=== PATIENT | female | born 1965 | race Caucasian/White ===

== ENCOUNTER → 2018-01-31 08:15 | Outpatient (CLI) | payer OTHER, SELFPAY ==
[2018-01-31 10:27] LABS: Absolute Lymphocyte Count 2.31 X10^3/ul (0.83-4.51); Absolute Neutrophil Count 4.4 X10^3/uL (2.0-7.7); Basophil# 0.04 X10^3/uL; Basophil% 0.5 % (0-1); Eosinophil# 0.12 X10^3/uL; Eosinophils% 1.5 % (0-5); Hematocrit 39.4 % (37-47); Hemoglobin 12.9 g/dl (12.0-15.0); Lymphocyte # 2.31 X10^3/ul (4.0); Lymphocyte % 29.5 % (19-41); Mean Corp Hgb Conc 32.7 g/gl (32-36); Mean Corpuscular Hgb 30.6 pg (27.0-32.0); Mean Corpuscular Volume 93.6 fL (81-99); Mean Platelet Vol. 10.6 fl (6.2-12.0); Monocyte# 0.93 X10^3/uL; Monocyte% 11.9 % (0-10); Neutrophil # 4.39 X10^3/uL (2.7-7.7); Neutrophil % 56.2 % (47-70); Platelet Count 410 K/mm3 (150-450); RBC Distribution Width CV 13.5 % (11.6-14.6); RBC Distribution Width SD 45.1 fl (35.1-43.9); Red Blood Count 4.21 M/mm3 (4.2-5.4); White Blood Count 7.8 K/mm3 (4.4-11.0)
[2018-01-31 10:32] LABS: POSITIVE COUNT NO; POSITIVE DIFFERENTIAL NO; POSITIVE MORPHOLOGY NO
[2018-01-31 11:03] LABS: Anion Gap 10 (5-15); BUN 14 mg/dL (7-18); BUN/Creat Ratio 18.3 RATIO (10-20); Calcium,Total 9.5 mg/dL (8.5-10.1); Chloride 100 mmol/L (98-107); Creatinine, Serum 0.76 mg/dL (0.55-1.02); EST Glomerular Filtration Rate 84 mL/min (>60); Est Glom Filt Rate - Afr Amer 102 mL/min (>60); Glucose 94 mg/dL (74-106); Potassium 3.1 mmol/L (3.5-5.1); Sodium Level 139 mmol/L (136-145); Thyroid Stim Hormone (TSH) 1.97 uIU/mL (0.358-3.74)
[2018-02-01 09:43] LABS: Vitamin D,25 Hydroxy 58.9 ng/mL (29.95-100.01)
== END ==
PROVIDERS: Family Provider Family Medicine; PCP Family Medicine; Visit Provider Family Medicine
DX: I10 Essential (primary) hypertension (principal); R53.81 Other malaise; E03.9 Hypothyroidism, unspecified; E55.9 Vitamin D deficiency, unspecified
CPT/HCPCS: 36415; 80048; 82306; 84443; 85025

== ENCOUNTER → 2018-03-19 17:49 | Outpatient (CLI) | payer OTHER, SELFPAY ==
--- NOTE | 2018-03-19 18:15 | MRI_ITS ---
STUDY: MRI LUMBAR SPINE WITHOUT CONTRAST REASON FOR EXAM: Female, 52 years old. Congenital spondylolisthesis. Left hip pain,sciatica. TECHNIQUE: Standardized fat and water weighted pulse sequences were obtained in the sagittal and axial planes. COMPARISON: None FINDINGS: T12-L1: There is minimal disc space narrowing and endplate spondylosis. There is no central canal or foraminal stenosis. Normal lumbar lordosis. There is no substantial scoliosis. Normal conus medullaris that terminates at the L1 L1-2: There is minimal disc space narrowing and endplate spondylosis. There is no central canal or foraminal stenosis. L2-3: There is minimal disc space narrowing and endplate spondylosis. There is no central canal or foraminal stenosis. L3-4: There is minimal disc space narrowing and endplate spondylosis. There is no central canal or foraminal stenosis. L4-5: There is moderate disc space narrowing and endplate spondylosis. There is grade 1 anterolisthesis with disc uncovering. There is spondylolysis. There is no significant central canal or foraminal stenosis. L5-S1: There is mild disc space narrowing and endplate spondylosis. There is a mild disc bulge with small central protrusion without significant central canal or foraminal stenosis. Normal visualized sacral ala. Normal visualized paraspinous soft tissue structures. MRI/Spine Lumbar (Routine) IMPRESSION: L4/L5: Spondylolysis with grade 1 anterolisthesis. Mild multilevel degenerative changes. Electronically Signed: Kirby Rodrigues MD at 13:24 EDT Tel , Service support ,
== END ==
PROVIDERS: Family Provider Family Medicine; PCP Family Medicine; Visit Provider Family Medicine
DX: Q76.2 Congenital spondylolisthesis (principal)
CPT/HCPCS: 72148

== ENCOUNTER → 2018-06-18 12:54 | Outpatient (CLI) | payer OTHER, SELFPAY | PROVIDERS: Family Provider Family Medicine; PCP Family Medicine; Visit Provider Orthopaedic Surgery | DX: M54.5 Low back pain (principal) | CPT/HCPCS: 72110 ==

== ENCOUNTER → 2018-08-22 12:38 | Outpatient (CLI) | payer OTHER, SELFPAY ==
--- NOTE | 2018-08-22 12:44 | MRI_ITS ---
STUDY: MRI RIGHT ANKLE WITHOUT CONTRAST REASON FOR EXAM: Female, 53 years old. Increasing Achilles tendon pain after fall 9 weeks ago. TECHNIQUE: Standardized fat and water weighted pulse sequences were obtained in all 3 orthogonal planes. COMPARISON: X-rays of the foot dated May 18, 2004. FINDINGS: Normal subcutis adipose space. There is mild posterior tibialis tendinosis with tenosynovitis (axial series 3 images 12-16). Normal flexor digitorum longus tendon. Normal flexor hallucis longus tendon. Normal peroneus longus and brevis tendons. Normal tibialis anterior tendon. Normal extensor hallucis longus tendon. Normal extensor digitorum longus tendons. There is thickening and increased signal intensity within the distal Achilles tendon compatible with tendinosis (sagittal series 8 images 10-14). Normal plantar fascia. Normal plantar calcaneal tubercles. Normal intrinsic muscles of the rearfoot. Normal distal tibiofibular syndesmotic ligamentous complex. Normal lateral ligamentous complex. Normal subtalar ligaments and sinus tarsi. There are small varices within the tarsal tunnel (axial series 3 images 13-20). Normal deltoid ligamentous complexes. Normal plantar calcaneonavicular (spring) ligament. Normal tibiotalar articulation. Normal talar dome. Normal subtalar articulations. Normal talonavicular articulation. Normal calcaneocuboid articulation. Normal navicular-cuneiform articulations. MRI/Lower Ext Joint Only (Routine) IMPRESSION: Mild posterior tibialis tendinosis with tenosynovitis. Distal Achilles tendinosis. Small varices within the tarsal tunnel. No other abnormality identified. Electronically Signed: Johnathan David MD at 14:21 EST , Service support ,
== END ==
PROVIDERS: Family Provider Family Medicine; PCP Family Medicine; Referring Provider Podiatrist; Visit Provider Podiatrist
DX: M76.61 Achilles tendinitis, right leg (principal); M77.31 Calcaneal spur, right foot; M79.671 Pain in right foot
CPT/HCPCS: 73721

== ENCOUNTER 2018-10-24 12:30 | Outpatient (RCR) | payer OTHER, SELFPAY ==
--- NOTE | 2018-09-16 15:00 | HP.PTEVAL_ITS ---
Patient's Visit Information SHILOH ORONA is a 53 year old F referred to Physical Therapy by Ezequiel Forrest DPM with a diagnosis of Achilles. Date of Evaluation: 09/16/18 Physical Therapist: Carmen Loza - Visit Plan Frequency: 2x /Week Duration: 4 Weeks Plan: Focus on stretching of right LE- modality (ultrasound) and manual to increase blood flow - Subjective Subjective: Took a fall this summer in the garage and slipped on a wet floor and hurt a lot of this but the ankle developed a knot on the back of the achilles and soreness. Went on vacation and walked a lot and it bothered her a lot. Went back to school on her hand floor and its just getting worse. Right foot/ankle and also feels like plantarfascitis is back. Feels it has plateaued. Saw Dr. Forrets and put her in the boot for a long time but didn't feel like it got better or worse and then sent her to see PT. Has had x-rays which didn't show anything broken- concerned about swelling around achilles- didnt want her to rupture so that was part of the reason she wore the boot. Had an MRI which showed no tears just tendonitis. Pain is currently located along the back of the ankle on the achilles and the bottom of the foot. Does have pain along the back of the back of the calf to the knee. Worst: 6/10 Agg: being on her feet to long, stairs. Best: 2/10 Eases: get off her feet. Describes the pain as achy. Sometimes has N/T in the feet but its from her back. Needs to do PT on her back when this is done. Sleep: wakes her up when she gets cramping in the calf. Has had surgery on the right LE years ago for her veins- then had a second surgery on this leg. 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 Only buys shoes that are good ([employer], [employer], etc). PMHx:HTN,thyroid Meds: HTN med unsure of the name, Levothyroxin, Vit D, water pill - Objective Posture: FH, RS- can correct with verbal cueing. Gait: slightly antalgic- decreased stance on the right LE with poor heel/toe pattern. Stairs: asc- 2 HR recip with decreased push off on the right- desc-non recip with 2 HR and a sideways pattern. SLS: 20 sec with good stablization. HR/TR: able with pain on the right. Palpation: tender along outer rim of the heel and along the achilles. Observation: veins close to skin in ankle- bump on back of achilles close to insertion. ROM: DF: neutral, PF: 50 degrees, Inv: 30 degrees, Ever:15 degrees. Strength: 4+/5 throughout. Flex: Gastroc: severe, Solues: moderate - Goals Goal 1:: Patient will be I with HEP and progression Goal Time Frame: 4-6 Weeks Goal 2:: Patient will ambulate >300 feet with a normalized gait pattern Goal Time Frame: 4-6 Weeks Goal 3:: Patient will demo 5 degrees of DF Goal Time Frame: 4-6 Weeks Goal 4:: Patient will report 0/10 pain for 1 week Goal Time Frame: 4-6 Weeks - Rehabilitation Potential Physical Therapy Diagnosis: Patient presents with hypomobility- she has decreased ROM, strength and increased inflammation leading to increased pain with ADL's and gait. Rehabilitation Potential: Good - Anticipated Interventions Patient/Client Instruction: Educate patient on: Benefits of Fitness Program Therapeutic Exercise to Include: Strength training, Endurance training, Balance training, Agility training, Body mechanics, Postural training, Flexibilty training, Gait and locomotor training, Neuromotor development For the Purpose of:: To improve muscle performance and motor function Manual Therapy Techniques to Include: Soft tissue mobilization TENS: Yes Cryotherapy (ice pack, ice massage): Yes Thermo therapy (hot pack): Yes Ultrasound (thermal/non thermal): Yes For the Purpose of:: To decrease pain, To decrease swelling/inflammation Thank you for the opportunity to evaluate your patient. For Medicare and Medicare HMO plans, please review the plan of care and approve it. It will need to be FAXED BACK to us at [phone] for Medicare purposes. Please let me know if there are questions or concerns regarding this plan of care. Physician Signature: Date:
--- NOTE | 2018-10-17 11:52 | HP.PTREVAL ---
Ezequiel Forrest DPM, It has been my pleasure to treat SHILOH ORONA over the last 7 visits for Achilles. Please see the progress note below for an update on the physical therapy plan of care! Subjective: Patient reports that her foot/ankle is coming along- Still having cramps at night. Certain days are good- when she is on her feet to long it starts hurting. Its less painful when just walking. Feels that its 50% better. Objective/Function: Posture: FH, RS- can correct with verbal cueing-and maintains for half of treatment Gait: improved- no deviation noted. Stairs: asc- 2 HR recip with decreased push off on the right- desc-non recip with 2 HR and a sideways pattern. SLS: 30 sec with good stablization. HR/TR: able no pain. Palpation: slightly tender to achilles. ROM: DF: 8 degrees, PF: 50 degrees, Inv: 30 degrees, Ever:15 degrees. Strength: 4+/5 throughout. Flex: Gastroc: moderate, Solues: moderate Plan Plan: Cont with POC an additional week for progression to HEP Goals Goal 1:: Patient will be I with HEP and progression Goal Time Frame: 4-6 Weeks Goal Progress: Progressing Goal 2:: Patient will ambulate >300 feet with a normalized gait pattern Goal Time Frame: 4-6 Weeks Goal Progress: Progressing Goal 3:: Patient will demo 5 degrees of DF Goal Time Frame: 4-6 Weeks Goal Progress: Goal Met Goal 4:: Patient will report 0/10 pain for 1 week Goal Time Frame: 4-6 Weeks Goal Progress: Progressing Anticipated Interventions Patient/Client Instruction: Educate patient on: Benefits of Fitness Program Therapeutic Exercise to Include: Strength training, Endurance training, Balance training, Agility training, Body mechanics, Postural training, Flexibilty training, Gait and locomotor training, Neuromotor development For the Purpose of:: To improve muscle performance and motor function Manual Therapy Techniques to Include: Soft tissue mobilization TENS: Yes Cryotherapy (ice pack, ice massage): Yes Thermo therapy (hot pack): Yes Ultrasound (thermal/non thermal): Yes For the Purpose of:: To decrease pain, To decrease swelling/inflammation Please do not hesitate to contact me at [phone] by phone or if you have questions or concerns regarding this new plan of care! Sincerely, Carmen Loza, LORRAINET
--- NOTE | 2019-02-21 08:14 | HP.PT.NRP ---
HP - Discharge Summary (1) - Patient Information SHILOH ORONA was seen in my office for initial evaluation on 09/16/18. The following Plan of Care was established for this patient: Initial Frequency: 2x /Week Initial Duration: 4 Weeks - Anticipated Interventions Patient/Client Instruction: Educate patient on: Benefits of Fitness Program Therapeutic Exercise to Include: Strength training, Endurance training, Balance training, Agility training, Body mechanics, Postural training, Flexibilty training, Gait and locomotor training, Neuromotor development For the Purpose of:: To improve muscle performance and motor function Manual Therapy Techniques to Include: Soft tissue mobilization TENS: Yes Cryotherapy (ice pack, ice massage): Yes Thermo therapy (hot pack): Yes Ultrasound (thermal/non thermal): Yes For the Purpose of:: To decrease pain, To decrease swelling/inflammation This patient was last seen in our office . Pertinent comments regarding their Physical therapy will appear below: Patient has not attended physical therapy in over 30 days and is appropriate for discharge. Follow up with MD as appropriate. At this point I will be discontinuing this patient from physical therapy. I would be happy to see this patient again in the future if found appropriate by the physician. Thank you! Carmen Loza DPT
== END 2018-10-24 19:00 | disposition home or self-care (01) ==
LOC: PT 12:30
PROVIDERS: Family Provider Family Medicine; PCP Family Medicine; Referring Provider Podiatrist; Visit Provider Podiatrist
DX: M76.61 Achilles tendinitis, right leg (principal); M25.571 Pain in right ankle and joints of right foot; M72.2 Plantar fascial fibromatosis; M77.31 Calcaneal spur, right foot; M79.671 Pain in right foot; M76.821 Posterior tibial tendinitis, right leg
CPT/HCPCS: 97035; 97110; 97140; 97161; 97164

== ENCOUNTER → 2019-01-07 15:17 | Outpatient (CLI) | payer OTHER, SELFPAY ==
--- NOTE | 2019-01-07 15:19 | US_ITS ---
STUDY: THYROID ULTRASOUND REASON FOR EXAM: Female, 53 years old. Thyromegaly TECHNIQUE: Ultrasound evaluation of the thyroid was performed with real-time and static brower-scale imaging. COMPARISON: August 01, 2016 ultrasound thyroid FINDINGS: RIGHT LOBE: The right lobe of the thyroid gland measures 2.9 x 2.4 x 2.3 cm. There is a heterogeneous echotexture. There are no demonstrated solid, cystic or complex lesions. LEFT LOBE: The left lobe of the thyroid gland measures 5.3 x 2.0 x 1.7 cm. There is a heterogeneous echotexture. There are no demonstrated solid, cystic or complex lesions. ISTHMUS: The isthmus measures 5 mm . The regional lymph nodes are normal. US/Thyroid IMPRESSION: Bilateral thyroid enlargement. Bilateral diffuse heterogeneous echotexture without evidence of definitive focal dominant mass. Findings are quite similar to the prior study. Electronically Signed: Chanda Hope MD at 16:09 EDT Tel , Service support ,
== END ==
PROVIDERS: Family Provider Family Medicine; PCP Family Medicine; Referring Provider Family Medicine; Visit Provider Family Medicine
DX: E04.9 Nontoxic goiter, unspecified (principal)
CPT/HCPCS: 76536

== ENCOUNTER → 2019-01-11 09:34 | Outpatient (CLI) | payer OTHER, SELFPAY ==
[2018-06-18 12:44] VITALS: BMI 34.0
[2019-01-11 10:18] LABS: Absolute Lymphocyte Count 2.18 X10^3/ul (0.83-4.51); Absolute Neutrophil Count 4.3 X10^3/uL (2.0-7.7); Basophil# 0.03 X10^3/uL; Basophil% 0.4 % (0-1); Eosinophil# 0.17 X10^3/uL; Eosinophils% 2.2 % (0-5); Hematocrit 40.5 % (37-47); Lymphocyte # 2.18 X10^3/ul (4.0); Lymphocyte % 28.6 % (19-41); Mean Corp Hgb Conc 32.1 g/gl (32-36); Mean Corpuscular Hgb 29.5 pg (27.0-32.0); Mean Platelet Vol. 10.6 fl (6.2-12.0); Monocyte% 11.8 % (0-10); Neutrophil # 4.32 X10^3/uL (2.7-7.7); Neutrophil % 56.7 % (47-70); Platelet Count 396 K/mm3 (150-450); RBC Distribution Width CV 13.5 % (11.6-14.6); RBC Distribution Width SD 44.5 fl (35.1-43.9); White Blood Count 7.6 K/mm3 (4.4-11.0)
[2019-01-11 10:20] LABS: POSITIVE COUNT NO; POSITIVE DIFFERENTIAL NO; POSITIVE MORPHOLOGY NO
[2019-01-11 10:47] LABS: Anion Gap 2 (5-15); BUN 14 mg/dL (7-18); BUN/Creat Ratio 18.2 RATIO (10-20); Calcium,Total 9.1 mg/dL (8.5-10.1); Chloride 103 mmol/L (98-107); Creatinine, Serum 0.77 mg/dL (0.55-1.02); EST Glomerular Filtration Rate 83 mL/min (>60); Est Glom Filt Rate - Afr Amer 101 mL/min (>60); Glucose 92 mg/dL (74-106); Potassium 3.4 mmol/L (3.5-5.1); Sodium Level 139 mmol/L (136-145); Thyroid Stim Hormone (TSH) 1.92 uIU/mL (0.358-3.74)
== END ==
PROVIDERS: Family Provider Family Medicine; PCP Family Medicine; Referring Provider Family Medicine; Visit Provider Family Medicine
DX: I10 Essential (primary) hypertension (principal); E04.9 Nontoxic goiter, unspecified; R53.81 Other malaise
CPT/HCPCS: 36415; 80048; 84443; 85025

== ENCOUNTER → 2020-07-05 09:12 | Outpatient (CLI) | payer OTHER, SELFPAY ==
[2018-06-18 12:44] VITALS: BMI 34.0
[2020-07-05 10:20] LABS: Erythrocyte Sedimentation Rate 21 mm/hr (0-30)
[2020-07-05 10:23] LABS: Hematocrit 39.4 % (37-47); Hemoglobin 12.7 g/dL (12.0-15.0); Mean Corp Hgb Conc 32.2 g/dL (32-36); Mean Corpuscular Hgb 29.7 pg (27.0-32.0); Mean Corpuscular Volume 92.3 fL (81-99); Mean Platelet Vol. 10.6 fl (6.2-12.0); Platelet Count 424 K/mm3 (150-450); RBC Distribution Width CV 13.9 % (11.6-14.6); RBC Distribution Width SD 46.9 fl (35.1-43.9); Red Blood Count 4.27 M/mm3 (4.2-5.4); White Blood Count 7.8 K/mm3 (4.4-11.0)
[2020-07-05 10:36] LABS: Vitamin D,25 Hydroxy 87.9 ng/mL
[2020-07-05 10:38] LABS: ALB/GLOB Ratio 0.9 RATIO (0.9-2.4); AST(SGOT) 21 U/L (15-37); Alanine Aminotransfer ALT/SGPT 29 U/L (13-56); Albumin, Serum 3.8 g/dL (3.2-5.0); Alkaline Phosphatase 92 U/L (45-117); Anion Gap 3 (5-15); BUN 9 mg/dL (7-18); BUN/Creat Ratio 12.6 RATIO (10-20); Calcium,Total 9.5 mg/dL (8.5-10.1); Chloride 104 mmol/L (98-107); Cholesterol 163 mg/dL (200); Creatinine, Serum 0.72 mg/dL (0.55-1.02); EST Glomerular Filtration Rate 90 mL/min (>60); Est Glom Filt Rate - Afr Amer 109 mL/min (>60); Globulin 4.1 g/dL (2.2-4.2); Glucose 106 mg/dL (74-106); High Density Lipoprotein 63 mg/dL; Protein, Total 7.9 g/dL (6.4-8.2); Sodium Level 140 mmol/L (136-145); T4 Free Direct 1.16 ng/dL (0.76-1.46); Thyroid Stim Hormone (TSH) 3.84 uIU/mL (0.358-3.74); Triglycerides 84 mg/dL; Very Low Density Lipoprotein 17 mg/dL (5-40)
== END ==
PROVIDERS: PCP Family Medicine; Referring Provider Family Medicine; Visit Provider Family Medicine
DX: M25.473 Effusion, unspecified ankle (principal); M25.50 Pain in unspecified joint; I10 Essential (primary) hypertension; E03.9 Hypothyroidism, unspecified; E55.9 Vitamin D deficiency, unspecified
CPT/HCPCS: 36415; 80053; 80061; 82306; 84439; 84443; 85027; 85652

== ENCOUNTER → 2020-07-14 16:59 | Outpatient (CLI) | payer OTHER, SELFPAY ==
[2018-06-18 12:44] VITALS: BMI 34.0
--- NOTE | 2020-07-14 17:02 | RAD_ITS ---
STUDY: X-RAY - PELVIS AND LEFT HIP REASON FOR EXAM: Female, 54 years old. CHRONIC LEFT HIP PAIN, NKI TECHNIQUE: 3 views of the pelvis and hip. COMPARISON: None. FINDINGS: There is a non-specific bowel gas pattern. Normal visualized soft tissue structures. Normal bilateral iliac wings, sacroiliac joints and visualized sacrum. Normal bilateral superior and inferior pubic rami. Normal pubic symphysis. Normal bilateral ischial tuberosities. Normal visualized femoral head. Normal acetabulum. Normal hip joint. RAD/HIP, UNI W/ Pelvis 2-3 Views IMPRESSION: Normal x-ray examination of the pelvis and hip. Electronically Signed: Kevin Clark MD at 0:26 EDT , Service support ,
--- NOTE | 2020-07-14 17:03 | RAD_ITS ---
STUDY: X-RAY - RIGHT KNEE REASON FOR EXAM: Chronic right knee pain, no specific injury. TECHNIQUE: 4 view(s) of the knee. COMPARISON: Radiographs 06/07/2015. FINDINGS: Normal visualized distal femur. Normal visualized proximal tibia and fibula. Normal proximal tibiofibular articulation. Normal medial femorotibial compartment. There is mild joint space narrowing of the lateral femorotibial compartment similar to the prior study. There is moderate severe joint space narrowing of the patellofemoral articulation increased since the prior study. There is a possible intra-articular body adjacent to the lateral tibial spine. 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 Possible intra-articular body. Electronically Signed: Cristofer Swann MD at 7:24 EDT Tel , Service support ,
== END ==
PROVIDERS: PCP Family Medicine; Referring Provider Family Medicine; Visit Provider Family Medicine
DX: M25.561 Pain in right knee (principal); M70.62 Trochanteric bursitis, left hip; Y93.9 Activity, unspecified
CPT/HCPCS: 73502; 73564

== ENCOUNTER 2020-09-02 16:30 | Outpatient (RCR) | payer OTHER, SELFPAY ==
--- NOTE | 2020-08-16 15:34 | HP.PTEVAL_ITS ---
Patient's Visit Information SHILOH ORONA is a 55 year old F referred to Physical Therapy by Dr. Seven Barrios MD with a diagnosis of Right Knee and Left Hip. Date of Evaluation: 08/16/20 Physical Therapist: Carmen Loza DPT - Visit Plan Frequency: 2x /Week Duration: 4 Weeks Plan: Focus on LE and core strength/stabilization- painfree range. HEP IE: Isometric Abdominals, bridge, hip add, hip abd, SLR - Subjective Patient reports that her left hip has been really bad for a long time and its gotten to the point where she can't do certain things and she is tired of it. And the right knee is also an issue. She has seen the back MD who told her the pain is coming from her back. Dr. Barrios thinks she has bursitis. Back in the spring she is doing a lot of walking and it go really bad she was having a hard time walking the next day- inclines and hiking are the worse so she has stopped doing them because they hurt. 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 Eases: sitting Agg: cleaning, standing, walking, hiking. The pain is located in the hip joint and radiates to the knee on the outside- can't pivot because it will catch. No MRI on the hip just an x- ray Worst: 05/31. Sleep: can't sleep on her left side, hard to lay on her back. She is sleeping with a ton of pillows to try to get comfortable. She wants to get back to exercising- walking, hiking and enjoy herself. Tylenol Arthritis takes the edge off- Dr. Barrios prescribed a muscle relaxer and she can't take them. Her right knee is swollen and if she does any work around the house the lateral aspect of the knee gets swollen. Going up/down the stairs is horrible. PMHx/Meds: scanned in chart - Objective Posture: FH, RS- can correct but does not maintain. Gait: slightly antalgic- decreased stance on the left LE with poor heel/toe pattern. Stairs: non recip with 2 HR- pulls with UE significantly. HR/TR: able. SLS: 10 sec then LOB. Sensation: WNL. ROM: WFL in all planes of the lumbar, bilateral hips, knees and ankles- pain at end range IR/ER of left hip and flexion on the right knee. Flex: HS: severe, Gastroc: moderate. Strength: Core: fair minus, Hip: 4-/5 bilateral throughout, Knee: 4+/5 throughout bilateral, ankle: 5/5. Edema: moderate on lateral aspect of the right knee. Special Test: Scour: positive, SHARIF: positive, Dural Signs: positive on the left, Yariel: positive. LLD: negative, Pelvic Alignment: WFL - Goals Goal 1:: Patient will be I with HEP and progression Goal Time Frame: 4-6 Weeks Goal 2:: Patient will asc/desc 8 stairs recip with 1 HR Goal Time Frame: 4-6 Weeks Goal 3:: Patient will maintain proper posture t/o tx session to demo increased core s/s Goal Time Frame: 4-6 Weeks Goal 4:: Patient will report 0/10 pain for 1 week Goal Time Frame: 4-6 Weeks - Rehabilitation Potential Physical Therapy Diagnosis: Patient presents with hypomobility- she has decreased core s/s, LE strength, flex and muscular endurance leading to abnormal gait and increased pain with ADL's. Rehabilitation Potential: Fair - Anticipated Interventions Patient/Client Instruction: Educate patient on: Benefits of Fitness Program Therapeutic Exercise to Include: Strength training, Endurance training, Balance training, Agility training, Body mechanics, Postural training, Flexibilty training, Gait and locomotor training, Neuromotor development, Passive ROM, Active ROM, Dynamic Lumbar Stabilization, Scapular Strength/Stabilization For the Purpose of:: To improve muscle performance and motor function TENS: Yes Thermo therapy (hot pack): Yes Ultrasound (thermal/non thermal): Yes For the Purpose of:: To decrease pain Thank you for the opportunity to evaluate your patient. For Medicare and Medicare HMO plans, please review the plan of care and approve it. It will need to be FAXED BACK to us at [phone] for Medicare purposes. For Medicare only, by signing this I certify the plan of care. Please let me know if there are questions or concerns regarding this plan of care. Physician Signature: Date:
--- NOTE | 2020-09-23 11:29 | HP.PT.NRP ---
SHILOH ORONA was seen in my office for initial evaluation on 08/16/20. The following Plan of Care was established for this patient: Initial Frequency: 2x /Week Initial Duration: 4 Weeks Patient/Client Instruction: Educate patient on: Benefits of Fitness Program Therapeutic Exercise to Include: Strength training, Endurance training, Balance training, Agility training, Body mechanics, Postural training, Flexibilty training, Gait and locomotor training, Neuromotor development, Passive ROM, Active ROM, Dynamic Lumbar Stabilization, Scapular Strength/Stabilization For the Purpose of:: To improve muscle performance and motor function TENS: Yes Thermo therapy (hot pack): Yes Ultrasound (thermal/non thermal): Yes For the Purpose of:: To decrease pain This patient was last seen in our office . Pertinent comments regarding their Physical therapy will appear below: Patient reported being frustrated with her lack of progress in therapy. Physical Therapy referred her back to her PCP for further evaluation and offered aquatic therapy as an option as well. At this point I will be discontinuing this patient from physical therapy. I would be happy to see this patient again in the future if found appropriate by the physician. Thank you! Carmen Loza DPT
== END 2020-09-02 19:00 | disposition home or self-care (01) ==
LOC: PT 16:30
PROVIDERS: PCP Family Medicine; Referring Provider Family Medicine; Visit Provider Family Medicine
DX: M25.561 Pain in right knee (principal)
CPT/HCPCS: 97035; 97110; 97162

== ENCOUNTER → 2020-10-26 15:16 | Outpatient (CLI) | payer OTHER, SELFPAY ==
--- NOTE | 2020-10-26 15:22 | MRI_ITS ---
STUDY: MRI LEFT HIP REASON FOR EXAM: Left hip pain for year, no specific injury. TECHNIQUE: Standardized fat and water weighted pulse sequences were obtained in all 3 orthogonal planes. COMPARISON: Radiographs 07/14/2020. FINDINGS: There is mild left hip arthrosis with mild chondral thinning (proton-density sagittal image 8). Normal acetabulum. Normal labrum. Normal femoral head. Normal femoral neck and intratrochanteric region. Normal gluteus minimus, medius and iliopsoas tendons and distal insertions. There is mild bilateral greater trochanteric bursitis (inversion recovery axial images 24, 25). Normal superior and inferior pubic rami. Normal pubic symphysis. Normal ischial tuberosity. Normal origin of the hamstring tendons. Normal visualized iliac wing, sacroiliac joint, and sacral ala. Normal visualized soft tissue structures of the pelvis. MRI/Lower Ext Joint Only (Routine) IMPRESSION: Mild left hip arthrosis. Mild bilateral greater trochanteric bursitis. Electronically Signed: Cristofer Swann MD at 9:50 EST Tel , Service support ,
--- NOTE | 2020-10-26 15:22 | MRI_ITS ---
STUDY: MRI RIGHT KNEE REASON FOR EXAM: Right knee pain, fall 2 years ago. TECHNIQUE: Standardized fat and water weighted pulse sequences were obtained in all 3 orthogonal planes. COMPARISON: Radiographs 07/14/2020. FINDINGS: There is intrasubstance myxoid degeneration of the posterior horn of the medial meniscus without discrete medial meniscal tear. There is mild arthrosis of the medial femorotibial compartment with mild chondral irregularity of the medial femoral condyle (T2 sagittal image 18). Normal medial femoral condyle and tibial plateau. Normal medial collateral ligamentous complex (MCL). Normal distal semimembranosus, gracilis and semitendinosus tendons. Normal lateral meniscus. Normal hyaline cartilage of the lateral femorotibial compartment. There are very small marginal osteophytes of the lateral femorotibial compartment. Normal lateral femoral condyle and tibial plateau. Normal proximal tibiofibular articulation. Normal lateral collateral (fibular) ligament. Normal popliteus tendon. Normal biceps femoris tendon. Normal anterior cruciate ligament (ACL). Normal posterior cruciate ligament (PCL). Normal congruent patellofemoral articulation. There is arthrosis of the patellofemoral compartment with chondral loss (T2 sagittal image 10). Normal medial and lateral patellar retinaculum. Normal visualized quadriceps tendon. Normal patellar tendon. Normal Hoffa''s fat pad. There is a minimal volume of fluid in the knee joint. There is an intra-articular body at the anterior lateral aspect of the intercondylar notch adjacent to the lateral femoral condyle (proton-density coronal image 21) measuring 0.6 cm in transverse dimension. There is a lobulated ganglion cyst at the peripheral aspect of the distal lateral femoral metaphysis (T2 coronal images 15-22) measuring 4.0 x 0.7 cm (AP x transverse). There is mild edema in the anterior subcutis adipose space. The otherwise visualized osseous structures are unremarkable. MRI/Lower Ext Joint Only (Routine) IMPRESSION: Patellofemoral arthrosis and mild arthrosis of the medial femorotibial compartment. Intra-articular body. Ganglion cyst at the peripheral aspect of the distal lateral femoral metaphysis. Electronically Signed: Cristofer Swann MD at 8:56 EST Tel , Service support ,
== END ==
PROVIDERS: PCP Family Medicine; Referring Provider Orthopaedic Surgery; Visit Provider Orthopaedic Surgery
DX: M17.11 Unilateral primary osteoarthritis, right knee (principal); M25.552 Pain in left hip
CPT/HCPCS: 73721

== ENCOUNTER 2020-10-31 16:12 | Emergency (ER) | payer OTHER, SELFPAY ==
[2020-10-31 16:13] VITALS: BP 163/97; PULSE 81; RESP 18; TEMP 35.7; O2SAT 95; BMI 37.7
--- NOTE | 2020-10-31 16:57 | RAD_ITS ---
STUDY: X-RAY CHEST REASON FOR EXAM: Female, 55 years old. CHEST PAIN TODAY, PT THINKS ITS ANXIETY RELATED TECHNIQUE: AP COMPARISON: 09/27/2015 FINDINGS: The lungs are clear and expanded. There is no demonstrated pleural abnormality. Normal size heart. Normal mediastinum and carlyle. Normal visualized pulmonary arteries. Normal visualized aortic arch and descending thoracic aorta. Normal visualized thoracic spine. Normal visualized ribs, clavicles, and shoulders. There is no demonstrated abnormality of the visualized soft tissue structures of the upper abdomen. RAD/Chest 1 View (Portable) IMPRESSION: Nonacute portable x-ray examination of the chest. Electronically Signed: Lars Metzger MD ([place]) at 17:23 EST , Service support ,
--- NOTE | 2020-10-31 16:57 | EKG12_ITS ---
Test Reason : Blood Pressure : / mmHG Vent. Rate : 081 BPM Atrial Rate : 081 BPM P-R Int : 180 ms QRS Dur : 094 ms QT Int : 414 ms P-R-T Axes : 028 004 006 degrees QTc Int : 480 ms Normal sinus rhythm Nonspecific ST abnormality Prolonged QT Abnormal ECG Confirmed by MADELYN FISCHER, EDUARDO ([id number]), editorial writer MARCIE ACEVEDO ([id number]) on 11/01/2020 10:35:50 AM Referred By: ELENI Confirmed By:EDUARDO JOSHI MD
--- NOTE | 2020-10-31 17:03 | ED.VISSUMM ---
- ER Visit Summary Date of Service: 10/31/20 Chief Complaint: Chest pain History of Present Illness: The patient is a 55 F who presents with chest pain that began today. Patient states she is feeling anxious about her nephew who is recently diagnosed with COVID-19. Patient states her pain has been constant throughout the day. Patient describes it as burning. Patient states the pain is over the left chest. Patient admits to a cough and some lightheadedness. Patient denies any nausea or vomiting. Patient denies any diaphoresis. Patient denies any shortness of breath. Patient denies any fevers or chills. Patient does admit to some palpitations. Patient denies any PE risk factors. Patient has a family history of coronary artery disease in her father at age 49 and a history of hypertension. Physical Examination: Vital signs are stable. Patient is afebrile. Patient is in no acute distress. Oral mucosa is pink and moist. Neck is supple. Trachea is midline. There is no JVD noted. Heart was regular rate and rhythm. Lungs are clear and equal bilaterally. Abdomen is soft. Bowel sounds are normal. There is no tenderness. There is no rebound or guarding noted. Skin is warm dry. Cranial nerves II through XII are intact. There are no focal motor or sensory deficits noted. Extremities are intact. There is no calf tenderness or edema. Test Results: EKG was obtained. On my interpretation, there is normal sinus rhythm with a rate of 81. There are nonspecific ST-T wave changes in leads V4 through V6. There are no prior EKGs available for comparison. CBC, basic metabolic profile, troponin were obtained. Potassium was low at 2.6. The remaining labs were within normal limits. Portable 1 view chest x-ray was obtained. On my interpretation, lung gage are clear. There is normal cardiac silhouette. Bony thorax is normal. There is no acute process noted. Radiologist also interpreted the x-ray and agrees. Emergency Department Course and Treatment: Patient was ordered IV and oral potassium. Patient does not want the IV potassium. Patient wants to take the oral potassium and go home. Patient states she is on a diuretic and potassium supplements but she does not know the names or doses. Patient has a HEART score of 3. Patient was advised that this is low risk for acute cardiac event. Patient was instructed to follow-up with her primary care physician in 2 to 3 days. Patient understood and was agreeable with the plan. All questions were answered. Disposition: Discharge home Impression: 1. Chest pain 2. Hypokalemia This note was generated with [employer] dictation software. It may contain incorrect words, spelling, and punctuation that were not noted in review of the chart prior to signing ED Disposition - Plan for ED Patient: Disposition: Home or Assisted Living Diagnosis: Chest pain, Hypokalemia Instructions: ED Chest Pain, Uncertain Cause, ED Hypokalemia Referrals: Andreas Montilla MD [Primary Care Provider] - 2 Days
[2020-10-31] MEDS: Aspirin 81 MG TAB.CHEW 324 MG PO (17:05)
[2020-10-31 17:19] VITALS: BP 180/92; PULSE 82; RESP 19; O2SAT 95
[2020-10-31 17:36] LABS: Absolute Lymphocyte Count 1.22 X10^3/uL (0.83-4.51); Absolute Neutrophil Count 3.7 X10^3/uL (2.0-7.7); Basophil# 0.03 X10^3/uL; Basophil% 0.5 % (0-1); Eosinophil# 0.03 X10^3/uL; Eosinophils% 0.5 % (0-5); Hematocrit 37.9 % (37-47); Hemoglobin 12.5 g/dL (12.0-15.0); Lymphocyte # 1.22 X10^3/ul (4.0); Mean Corpuscular Hgb 29.2 pg (27.0-32.0); Mean Corpuscular Volume 88.6 fL (81-99); Mean Platelet Vol. 10.2 fl (6.2-12.0); Monocyte# 0.56 X10^3/uL; Monocyte% 10.1 % (0-10); NRBC Flagged by Analyzer 0 % (0-5); Neutrophil % 66.7 % (47-70); Platelet Count 382 K/mm3 (150-450); RBC Distribution Width CV 13.6 % (11.6-14.6); RBC Distribution Width SD 44.1 fl (35.1-43.9); Red Blood Count 4.28 M/mm3 (4.2-5.4); White Blood Count 5.6 K/mm3 (4.4-11.0)
[2020-10-31 17:38] LABS: Anion Gap 6 (5-15); BUN 9 mg/dL (7-18); BUN/Creat Ratio 13.7 RATIO (10-20); Calcium,Total 8.9 mg/dL (8.5-10.1); Chloride 103 mmol/L (98-107); Creatinine, Serum 0.66 mg/dL (0.55-1.02); EST Glomerular Filtration Rate 99 mL/min (>60); Est Glom Filt Rate - Afr Amer 120 mL/min (>60); Estimated Creatinine Clearance 76.17 ml/min; Glucose 87 mg/dL (74-106); Potassium 2.6 mmol/L (3.5-5.1); Sodium Level 139 mmol/L (136-145)
[2020-10-31 18:03] VITALS: BP 167/80; PULSE 78; RESP 16; O2SAT 97
[2020-10-31 18:40] VITALS: BP 153/83; PULSE 78; RESP 21; O2SAT 95
== END 2020-10-31 18:40 | disposition home or self-care (01) ==
PROVIDERS: Emergency Provider Emergency Medicine; PCP Family Medicine
DX: R07.9 Chest pain, unspecified (principal); E87.6 Hypokalemia; I10 Essential (primary) hypertension; E03.9 Hypothyroidism, unspecified; R42 Dizziness and giddiness; R05 Cough; R00.2 Palpitations; E66.9 Obesity, unspecified; Z79.899 Other long term (current) drug therapy
CPT/HCPCS: 71045; 80048; 84484; 85025; 93005; 99285; A4216

== ENCOUNTER → 2020-11-08 13:01 | Outpatient (CLI) | payer OTHER, SELFPAY ==
[2020-11-08 13:01] VITALS: BMI 34.0
[2020-11-08 16:18] LABS: Anion Gap 6 (5-15); BUN 9 mg/dL (7-18); BUN/Creat Ratio 13.9 RATIO (10-20); Chloride 104 mmol/L (98-107); Creatinine, Serum 0.65 mg/dL (0.55-1.02); EST Glomerular Filtration Rate 101 mL/min (>60); Est Glom Filt Rate - Afr Amer 122 mL/min (>60); Glucose 83 mg/dL (74-106); Potassium 2.8 mmol/L (3.5-5.1); Sodium Level 141 mmol/L (136-145); Thyroid Stim Hormone (TSH) 3.77 uIU/mL (0.358-3.74)
== END ==
PROVIDERS: PCP Family Medicine; Referring Provider Family Medicine; Visit Provider Family Medicine
DX: E87.6 Hypokalemia (principal); E03.9 Hypothyroidism, unspecified
CPT/HCPCS: 36415; 80048; 84443

== ENCOUNTER → 2020-11-16 15:54 | Outpatient (CLI) | payer OTHER, SELFPAY ==
[2020-11-08 13:01] VITALS: BMI 34.0
[2020-11-16 18:01] LABS: Potassium 3.2 mmol/L (3.5-5.1)
== END ==
PROVIDERS: Visit Provider Nurse Practitioner Family
DX: E87.6 Hypokalemia (principal)
CPT/HCPCS: 36415; 83735; 84132

== ENCOUNTER → 2021-01-18 09:43 | Outpatient (CLI) | payer OTHER, SELFPAY ==
[2020-11-08 13:01] VITALS: BMI 34.0
[2021-01-18 12:27] LABS: Anion Gap 3 (5-15); BUN 11 mg/dL (7-18); BUN/Creat Ratio 16.7 RATIO (10-20); Calcium,Total 9.4 mg/dL (8.5-10.1); Chloride 104 mmol/L (98-107); Creatinine, Serum 0.66 mg/dL (0.55-1.02); EST Glomerular Filtration Rate 99 mL/min (>60); Est Glom Filt Rate - Afr Amer 120 mL/min (>60); Free T3 2.6 pg/mL (2.18-3.98); Glucose 93 mg/dL (74-106); Potassium 3.4 mmol/L (3.5-5.1); Sodium Level 140 mmol/L (136-145); T4 Free Direct 1.41 ng/dL (0.76-1.46); Thyroid Stim Hormone (TSH) 2.05 uIU/mL (0.358-3.74)
== END ==
PROVIDERS: PCP Family Medicine; Referring Provider Family Medicine; Visit Provider Family Medicine
DX: I10 Essential (primary) hypertension (principal); E03.9 Hypothyroidism, unspecified
CPT/HCPCS: 36415; 80048; 84439; 84443; 84481

== ENCOUNTER 2021-02-11 17:12 | Emergency (ER) | payer OTHER, SELFPAY ==
[2020-11-08 13:01] VITALS: BMI 34.0
[2021-02-11] VITALS (7 sets, daily range): BP systolic 162–205; BP diastolic 81–114; PULSE 72–93; RESP 16–19; TEMP 36.8; O2SAT 94–99; BMI 39.9
--- NOTE | 2021-02-11 17:35 | EKG12_ITS ---
Test Reason : CP Blood Pressure : / mmHG Vent. Rate : 089 BPM Atrial Rate : 089 BPM P-R Int : 176 ms QRS Dur : 090 ms QT Int : 372 ms P-R-T Axes : 031 017 009 degrees QTc Int : 452 ms Normal sinus rhythm Nonspecific ST abnormality Abnormal ECG Confirmed by NAYA FISCHER, SHAHAB ([id number]), editor index MARCIE ACEVEDO ([id number]) on 02/14/2021 9:51:47 AM Referred By: Confirmed By:SEBASTIAN PERSON MD
[2021-02-11 17:45] LABS: Absolute Lymphocyte Count 3.17 X10^3/uL (0.83-4.51); Absolute Neutrophil Count 6.8 X10^3/uL (2.0-7.7); Basophil# 0.05 X10^3/uL; Basophil% 0.4 % (0-1); Eosinophil# 0.31 X10^3/uL; Eosinophils% 2.8 % (0-5); Hematocrit 41.3 % (37-47); Hemoglobin 13.1 g/dL (12.0-15.0); Lymphocyte # 3.17 X10^3/ul (0.83-4.51); Lymphocyte % 28.3 % (19-41); Mean Corp Hgb Conc 31.7 g/dL (32-36); Mean Corpuscular Hgb 29.4 pg (27.0-32.0); Mean Corpuscular Volume 92.8 fL (81-99); Mean Platelet Vol. 10.1 fl (6.2-12.0); Monocyte# 0.85 X10^3/uL; Monocyte% 7.6 % (0-10); NRBC Flagged by Analyzer 0 % (0-5); Neutrophil # 6.79 X10^3/uL (2.7-7.7); Neutrophil % 60.5 % (47-70); Platelet Count 449 K/mm3 (150-450); RBC Distribution Width CV 13.5 % (11.6-14.6); RBC Distribution Width SD 46.3 fl (35.1-43.9); Red Blood Count 4.45 M/mm3 (4.2-5.4); White Blood Count 11.2 K/mm3 (4.4-11.0)
[2021-02-11 18:04] LABS: Anion Gap 3 (5-15); BUN 11 mg/dL (7-18); BUN/Creat Ratio 14.8 RATIO (10-20); Calcium,Total 9.4 mg/dL (8.5-10.1); Chloride 102 mmol/L (98-107); Creatinine, Serum 0.74 mg/dL (0.55-1.02); EST Glomerular Filtration Rate 86 mL/min (>60); Est Glom Filt Rate - Afr Amer 104 mL/min (>60); Estimated Creatinine Clearance 64.82 ml/min; Glucose 109 mg/dL (74-106); Magnesium 1.8 mg/dL (1.6-2.6); Sodium Level 138 mmol/L (136-145)
[2021-02-11 18:10] LABS: D-Dimer Quantitative (DVT/PE) 0.51 FEU/ug/m (0.27-0.49)
[2021-02-11] MEDS: Aspirin 81 MG TAB.CHEW 324 MG PO (18:20)
--- NOTE | 2021-02-11 18:25 | RAD_ITS ---
INDICATION: chest pain EXAMINATION/TECHNIQUE: X-RAY - XR Chest 2 Views COMPARISON: 10/31/2020. FINDINGS: The lungs are clear. The cardiomediastinal silhouette is unremarkable. No pleural effusion or pneumothorax. No acute osseous abnormalities. Degenerative changes of the thoracic spine. RAD/Chest PA and Lateral IMPRESSION: No acute radiographic abnormalities. Electronically Signed: Sunny Cast MD at 18:50 EDT Tel , Service support ,
[2021-02-11 19:32] LABS: Bacteria 0 SEEN /hpf (None Seen); Mucous, Urine 0 SEEN /hpf (<or=2+); Red Blood Cells-Urine 0 SEEN /hpf (0-5); Squamous Epithelial Cells - UA 0 SEEN /hpf (5-10); White Blood Cells 0 SEEN /hpf (0-5)
[2021-02-11 19:34] LABS: Color, Urine Straw (Yellow); Glucose, Dipstick Normal (Normal); Ketone-Dipstick Negative (Negative); Leukocyte Esterase-Dipstick 25 /ul (Negative); Nitrite-Dipstick Negative (Negative); Occult Blood-Urine Negative /ul (Negative); Protein-Dipstick Negative (Negative); Specific Gravity, Urine 1.015 (1.002-1.030); Urine Bilirubin Dipstick Negative (Negative); Urine Clarity Clear (Clear); Urine Urobilinogen Normal (Normal)
--- NOTE | 2021-02-11 19:51 | ED.VIS.CHEST ---
History of Present Illness Chief Complaint: Chest Pain Informant: Patient Narrative: Patient is a 55-year-old female with history of hypertension presenting with pressure in her chest. Patient states it started this afternoon during lunch, around 1 PM but later in the day she felt some flutters in her chest but has had those in the past and were told they were benign after a Holter monitor test. She states that got home from work around 4 PM she noted to notice more sharp pains in her shoulder blades and back. She will states she felt hot. Home she notes that her blood pressure is elevated at home so she came to emergency room to be evaluated further. She knows she is had similar symptoms like this in the past and been associated with low potassium level. Patient is on potassium supplements and is chronically battling with low potassium. She is on amlodipine 5 mg for her blood pressure. She is not on any diuretics or any other medications. Patient states she has some chronic dependent edema which is unchanged. She denies any shortness of breath or difficulty breathing. She denies any fever or chills. She denies any nausea, vomiting or GI symptoms. She does have urinary frequency but states this is chronic for her. No other complaints at this time. Prior Similar Symptoms: Yes, No CVD Risk Factors: Hypertension Past Medical History - Allergies and Home Meds Allergies/Adverse Reactions: Allergies meloxicam Adverse Reaction (Mild, Verified 10/31/20 16:13) Palpitations Primary Care Physician: Andreas Montilla MD [Primary Care Provider] - Past Medical History: - - Hypertension, hypokalemia, hypothyroid Surgical History: noncontributory Lives: Spouse/ Significant Other Smoking Status: Never smoker Review of Systems General: Denies: Chills, Fever, Sweats Eyes: Denies: Visual changes - bilaterally, Diplopia ENT: Denies: Rhinorrhea, Sore throat Cardiovascular: Reports: Chest pain. Denies: Palpitations Respiratory: Denies: Dyspnea, Cough, Dyspnea on exertion Gastrointestinal: Denies: Abdominal pain, Nausea, Vomiting, Diarrhea, Melena, Hematochezia Genitourinary: Denies: Dysuria, Hematuria, Frequency Musculoskeletal: Reports: Back pain. Denies: Swelling, Extremity Pain Skin: Denies: Rash, Wounds Neurological: Denies: Headache, Weakness, Numbness Psych: Reports: Anxiety. Denies: Depression Physical Exam Vital Signs/Narrative: Vital Signs Temp Pulse Resp BP Pulse Ox 02/11/21 19:21 179/94 H 02/11/21 18:13 83 19 H 189/92 H 94 02/11/21 17:35 96 02/11/21 17:13 98.2 F 91 16 205/114 H 99 Inital Vital Signs reviewed: Yes General: Well nourished, Well developed, No Acute Distress Head: Normocephalic, Atraumatic Eyes: Perrl, EOMI ENT: Moist mucous membranes, No rhinorrhea Neck: Supple, Nontender, No JVD Cardiovascular: Regular rate, Regular rhythm, No murmurs, - - Equal DP pulses Respiratory: No distress, CTA bilaterally, Chest nontender Abdomen: Soft, Nontender, Nondistended, Normal bowel sounds. Negative for: Guarding, Rebound tenderness Back: Nontender, Normal Inspection Extremities: Nontender, No edema Skin: Normal color, No rash Neurological: Alert, Oriented x3, Cranial nerves II-XII grossly intact, Normal Strength, Normal Sensation Psychological: Normal affect, Normal Mood Diagnostic/Tx/Re-eval Chest X-Ray - ED: 2 View, Read by ED Physician, Read by Radiologist, No Acute Disease Clinical Impression(s) from Imaging Studies Chest X-Ray 02/11/21 18:25 IMPRESSION: No acute radiographic abnormalities. Electronically Signed: Sunny Cast MD at 18:50 EDT Tel , Service support , Laboratory Data 02/11/21 02/11/21 02/11/21 17:15 17:15 17:15 WBC 11.2 H RBC 4.45 Hgb 13.1 Hct 41.3 MCV 92.8 MCH 29.4 MCHC 31.7 L RDW Std Deviation 46.3 H RDW Coeff of Bisi 13.5 Plt Count 449 MPV 10.1 Immature Gran % (Auto) 0.400 Neut % (Auto) 60.5 Lymph % (Auto) 28.3 [place] % (Auto) 7.6 Eos % (Auto) 2.8 Baso % (Auto) 0.4 Absolute Neuts (auto) 6.8 Absolute Lymphs (auto) 3.17 Nucleated RBC % 0 D-Dimer Quant (PE/DVT) 0.51 H* Sodium 138 Potassium 3.0 L Chloride 102 Carbon Dioxide 33.0 H Anion Gap 3 L BUN 11 Creatinine 0.74 Estim Creat Clear Calc 64.82 Est GFR (MDRD) Af Amer 104 Est GFR (MDRD) Non-Af 86 BUN/Creatinine Ratio 14.8 Glucose 109 H Calcium 9.4 Magnesium 1.8 Troponin I < 0.015 Urine Color Urine Clarity Urine pH Ur Specific [place] Urine Protein Urine Glucose (UA) Urine Ketones Urine Occult Blood Urine Nitrite Urine Bilirubin Urine Urobilinogen Ur Leukocyte Esterase Urine RBC Urine WBC Ur Squamous Epith Cells Urine Bacteria Urine Mucus 02/11/21 02/11/21 19:20 20:23 WBC RBC Hgb Hct MCV MCH MCHC RDW Std Deviation RDW Coeff of [place] Plt Count MPV Immature Gran % (Auto) Neut % (Auto) Lymph % (Auto) [place] % (Auto) Eos % (Auto) Baso % (Auto) Absolute Neuts (auto) Absolute Lymphs (auto) Nucleated RBC % D-Dimer Quant (PE/DVT) Sodium Potassium Chloride Carbon Dioxide Anion Gap BUN Creatinine Estim Creat Clear Calc Est GFR (MDRD) Af Amer Est GFR (MDRD) Non-Af BUN/Creatinine Ratio Glucose Calcium Magnesium Troponin I < 0.015 Urine Color Straw Urine Clarity Clear Urine pH 8.0 Ur Specific [place] 1.015 Urine Protein Negative Urine Glucose (UA) Normal Urine Ketones Negative Urine Occult Blood Negative Urine Nitrite Negative Urine Bilirubin Negative Urine Urobilinogen Normal Ur Leukocyte Esterase 25 H Urine RBC 0 SEEN Urine WBC 0 SEEN Ur Squamous Epith Cells 0 SEEN Urine Bacteria 0 SEEN Urine Mucus 0 SEEN - Rhythm Strip Rhythm Strip: Sinus Rhythm Rate: 89 Ectopy: None - EKG Initial EKG Interpretation: Sinus Rhythm, - - Normal sinus rhythm at a rate of 89 Normal axis Normal intervals Normal ST segments - Medical Decision Making Evaluated for chest discomfort. She appears nontoxic in no acute distress. Her vital signs are significant for hypertension. EKG does not show any acute ischemic changes. Story is slightly atypical for ACS. He does have some associated back pain did obtain a D-dimer for concern of PE. She is otherwise low risk. Patient's D-dimer is0.51. Per age adjustment, it is negative. Do not think a CTA is indicated. Patient not appear volume overloaded. Delta troponin performed which is negative. Patient's heart score is 3. I think she is a good candidate for outpatient follow-up and stress test. She will follow-up with her primary care doctor and counseled that she should have further cardiac evaluation. Patient does have hypokalemia which seems to be a chronic issue. She will be given extra dose of oral potassium in the ER. Patient is counseled that she should also follow-up with her primary care doctor and possibly get a nephrology referral for further evaluation of her chronic electrolyte abnormalities. She is instructed that it is okay to increase her Norvasc to 10 mg daily if she needs better blood pressure control. She will follow-up with her primary care doctor about this. Patient is counseled on signs and symptoms requiring return to the emergency room. Patient verbalizes agreement and understand this plan. Patient discharged home in stable and improved condition. ED Disposition - Plan for ED Patient: Disposition: Home or Assisted Living Diagnosis: Chest pain, Hypertension, Hypokalemia Instructions: ED Chest Pain, Uncertain Cause, ED Hypokalemia, ED Hypertension, Established Referrals: Andreas Montilla MD [Primary Care Provider] - Additional Instructions: Please follow-up with your primary care doctor for further cardiac evaluation. He might require an outpatient stress test. Discussed with your doctor further about your chronic blood pressure management as well as low potassium
[2021-02-11] MEDS: Potassium Chloride Oral Tablet 20 MEQ 40 MEQ PO (21:23)
== END 2021-02-11 21:27 | disposition home or self-care (01) ==
PROVIDERS: Emergency Provider Emergency Medicine; PCP Family Medicine
DX: R07.89 Other chest pain (principal); E87.6 Hypokalemia; I10 Essential (primary) hypertension; M25.512 Pain in left shoulder; M25.511 Pain in right shoulder; M54.2 Cervicalgia; R60.9 Edema, unspecified; R35.0 Frequency of micturition; E03.9 Hypothyroidism, unspecified; Z79.899 Other long term (current) drug therapy
CPT/HCPCS: 36415; 71046; 80048; 81001; 83735; 84484; 85025; 85379; 93005; 99285; A4216

== ENCOUNTER → 2021-02-18 10:43 | Outpatient (CLI) | payer OTHER, SELFPAY ==
[2021-02-11 17:13] VITALS: BMI 39.9
[2021-02-18 13:16] LABS: Anion Gap 8 (5-15); BUN 10 mg/dL (7-18); BUN/Creat Ratio 15.3 RATIO (10-20); Calcium,Total 9.4 mg/dL (8.5-10.1); Chloride 103 mmol/L (98-107); Creatinine, Serum 0.65 mg/dL (0.55-1.02); EST Glomerular Filtration Rate 100 mL/min (>60); Est Glom Filt Rate - Afr Amer 121 mL/min (>60); Free T3 2.6 pg/mL (2.18-3.98); Glucose 71 mg/dL (74-106); Potassium 3.2 mmol/L (3.5-5.1); Sodium Level 139 mmol/L (136-145); T4 Free Direct 1.65 ng/dL (0.76-1.46); Thyroid Stim Hormone (TSH) 1.75 uIU/mL (0.358-3.74)
[2021-02-23 16:25] LABS: Aldosterone, Serum 15.4 ng/dL (0.0-30.0)
== END ==
PROVIDERS: PCP Family Medicine; Referring Provider Family Medicine; Visit Provider Family Medicine
DX: E87.6 Hypokalemia (principal); E03.9 Hypothyroidism, unspecified
CPT/HCPCS: 36415; 80048; 82088; 82533; 84439; 84443; 84481

== ENCOUNTER 2021-02-21 16:30 | Outpatient (RCR) | payer OTHER, SELFPAY ==
[2020-11-08 13:01] VITALS: BMI 34.0
--- NOTE | 2021-01-24 13:30 | HP.PTEVAL_ITS ---
Patient's Visit Information SHILOH ORONA is a 55 year old F referred to Physical Therapy by Dr. Manisha Mosher DO with a diagnosis of Left Greater Troch Bursitis, Glut Tendonitis. Date of Evaluation: 01/24/21 Physical Therapist: Carmen Loza DPT - Visit Plan Frequency: 2x /Week Duration: 4 Weeks Plan: Focus on left LE and core strength/stabilization, Posterior chain roll out/massage gun and stretching. Caution of right knee. HEP given IE: Hamstring stretch, bent knee fall out, hip adduction in supine with ball, piriformis stretching modified supine, clams - Subjective Saw Dr. Kendall had an MRI in the hip (bursitis, tendonitis, arthritis) and the right knee she has 5 cysts in the ITBand. She wanted her to see Dr. Philippe for injections in the hip- then had an SI joint injection. That really helped. He did not want to do the knee and sent her back to Dr. Kendall. Dr. philippe think he will continue to do injection. Feels like she is 50-60% better. Worst: 2/10 Agg: pressure, quick moves, lengthened stride. Eases: Tylenol Arthritis, slow controlled movements. Pain is located in the gluts on the left but when she moves quick its in the joint. Describes the pain as dull and achy when she walks hills- sharp/shooting when she makes those quick movements. Sleep: not since the injection but she does not lay on the left side PMHX: see chart for list - Objective Posture: FH, RS- can correct when given verbal cues but is unable to maintain. Gait: slightly antalgic- good sena- decreased stance on the right LE with decreased stride length bilateral. HR/TR: able with UE A. SLS: 3 sec reports pain and has moderate hip drop. Stairs: asc/desc 8 recip with 2 HR- desc has poor control and reports knee pain, asc she jumps off the left to avoid pressure on the right knee. Palpatoin: tender along ITband from knee to hip, Gluts into the SI Joint and on the greater troch. ROM: WFL pain with end range IR of the hip and extension of the lumbar spine. Strength: Core: poor, Hip: IR: 4/5, ER: 4-/5 with pain, Hip: 4/5 with discomfort, Extn: 4/5, Abd: 4/5 with discomfort Add: 4+/5 Knee: 5/5 Ankle: 5/5. Flex: HS: moderate, Piriformis: severe with pain. Special Test: Scour: positive, Squish Test: positive, LLD: negative. Pelvic Alignment: WFL - Goals Goal 1:: Patient will be I with HEP and progression Goal Time Frame: 4-6 Weeks Goal 2:: Patient will SLS for 15 sec without pain and no hip drop. Goal Time Frame: 4-6 Weeks Goal 3:: Patient will report no pain in the left hip Goal Time Frame: 4-6 Weeks Goal 4:: Patient will maintain proper posture t/o tx session to demo increased core s/s. Goal Time Frame: 4-6 Weeks - Rehabilitation Potential Physical Therapy Diagnosis: Patient presents with hypomobility- she has decrea sed ROM, strength, flex and muscular endurance leading to poor posture and increased pain with ADL's. Rehabilitation Potential: Fair - Anticipated Interventions Patient/Client Instruction: Educate patient on: Benefits of Fitness Program Therapeutic Exercise to Include: Strength training, Endurance training, Balance training, Agility training, Body mechanics, Postural training, Flexibilty training, Gait and locomotor training, Neuromotor development, Passive ROM, Active ROM, Dynamic Lumbar Stabilization, Scapular Strength/Stabilization For the Purpose of:: To improve muscle performance and motor function TENS: Yes Cryotherapy (ice pack, ice massage): Yes Thermo therapy (hot pack): Yes Ultrasound (thermal/non thermal): Yes Thank you for the opportunity to evaluate your patient. For Medicare and Medicare HMO plans, please review the plan of care and approve it. It will need to be FAXED BACK to us at [phone] for Medicare purposes. For Medicare only, by signing this I certify the plan of care. Please let me know if there are questions or concerns regarding this plan of care. Physician Signature: Date:
--- NOTE | 2021-02-21 16:59 | HP.PTDCSUM ---
It has been my pleasure to treat SHILOH ORONA referred by Dr. Manisha Mosher DO, with the diagnosis of Left Greater Troch Bursitis, Glut Tendonitis for a total of 8 visit(s). Discharge Date: Please see the following information for a summary of their discharge status. Subjective: Patient reports that her hip is great. The only place she has that catches is when she sharp turns fast. Is still unable to lay on that side but she is sleeping a lot better. % Improvement: 90 Objective/Function: Posture: FH, RS- can correct when given verbal cues Gait:no deviation noted HR/TR: able with UE A. SLS: 5 sec reports pain and has moderate hip drop. Stairs: asc/desc 8 recip with 1 HR Palpatoin: tender along ITband from knee to hip ROM: WFL Strength: Core: fair, Hip: IR: 4/5, ER: 4/5 with pain, Hip: Flexion 4+/5, Extn: 4/5, Abd: 4+/5 Add: 4+/5 Knee: 5/5 Ankle: 5/5. Flex: HS: moderate, Piriformis: severe with pain. Special Test: Scour: positive, Squish Test: positive, LLD: negative. Pelvic Alignment: WFL Goal 1:: Patient will be I with HEP and progression Goal Progress: Goal Met Goal 2:: Patient will SLS for 15 sec without pain and no hip drop. Goal Progress: Progressing Goal 3:: Patient will report no pain in the left hip Goal Progress: Goal Met Goal 4:: Patient will maintain proper posture t/o tx session to demo increased core s/s. Goal Progress: Progressing Plan: 02/21/2021: Discharge- [facility]. Focus on left LE and core strength/stabilization, Posterior chain roll out/massage gun and stretching. Caution of multiple cysts to lateral right knee If there are questions or concerns regarding this patient's physical therapy, please feel free to call me at [phone]. Thank you for the referral of this patient. Sincerely, Carmen Loza DPT
== END 2021-02-21 19:00 | disposition home or self-care (01) ==
LOC: PT 16:30
PROVIDERS: PCP Family Medicine; Referring Provider Orthopaedic Surgery; Visit Provider Orthopaedic Surgery
DX: M70.61 Trochanteric bursitis, right hip (principal); M70.62 Trochanteric bursitis, left hip
CPT/HCPCS: 97110; 97161; 97164

== ENCOUNTER → 2021-03-18 15:26 | Outpatient (CLI) | payer OTHER, SELFPAY ==
[2021-02-11 17:13] VITALS: BMI 39.9
[2021-03-18 17:58] LABS: Anion Gap 6 (5-15); BUN 10 mg/dL (7-18); BUN/Creat Ratio 14.2 RATIO (10-20); Calcium,Total 9.3 mg/dL (8.5-10.1); Chloride 105 mmol/L (98-107); EST Glomerular Filtration Rate 91 mL/min (>60); Est Glom Filt Rate - Afr Amer 111 mL/min (>60); Glucose 82 mg/dL (74-106); Potassium 3.5 mmol/L (3.5-5.1); Sodium Level 140 mmol/L (136-145)
== END ==
PROVIDERS: PCP Family Medicine; Referring Provider Family Medicine; Visit Provider Family Medicine
DX: I10 Essential (primary) hypertension (principal)
CPT/HCPCS: 36415; 80048

== ENCOUNTER → 2021-04-06 11:15 | Outpatient (CLI) | payer OTHER, SELFPAY ==
[2021-02-11 17:13] VITALS: BMI 39.9
[2021-04-06 12:56] LABS: Anion Gap 5 (5-15); BUN 7 mg/dL (7-18); Calcium,Total 9.4 mg/dL (8.5-10.1); Chloride 107 mmol/L (98-107); EST Glomerular Filtration Rate 92 mL/min (>60); Est Glom Filt Rate - Afr Amer 111 mL/min (>60); Glucose 88 mg/dL (74-106); Potassium 3.3 mmol/L (3.5-5.1); Sodium Level 141 mmol/L (136-145)
== END ==
PROVIDERS: PCP Family Medicine; Referring Provider Family Medicine; Visit Provider Family Medicine
DX: E87.6 Hypokalemia (principal)
CPT/HCPCS: 36415; 80048

== ENCOUNTER → 2021-04-06 13:13 | Outpatient (CLI) | payer OTHER, SELFPAY ==
[2021-02-11 17:13] VITALS: BMI 39.9
--- NOTE | 2021-04-06 13:16 | VDLE_ITS ---
Reason For Study: Rt Leg Pain RIGHT CFV is compressible, spontaneous, phasic, competent and demonstrates normal augmentation. FV is compressible, spontaneous, phasic, competent and demonstrates normal augmentation. POP V is compressible, spontaneous, phasic, competent and demonstrates normal augmentation. T/P Trunk is compressible. PTV is compressible. RT PerV is compressible. RT GSV is not visualized, patient had prior vein stripping and EVLA. VL/Venous Duplex US, Unilateral Interpretation Summary There is no evidence of right lower extremity deep vein thrombosis. Right great saphenous vein not visualized Ordering Physician: Andreas Montilla Referring Physician: Andreas Montilla Performed By: Jovana Govea, RDCS, RVT
== END ==
PROVIDERS: PCP Family Medicine; Referring Provider Family Medicine; Visit Provider Family Medicine
DX: M79.604 Pain in right leg (principal)
CPT/HCPCS: 93971

== ENCOUNTER → 2021-04-14 15:56 | Outpatient (CLI) | payer OTHER, SELFPAY ==
[2021-02-11 17:13] VITALS: BMI 39.9
[2021-04-14 18:11] LABS: Anion Gap 5 (5-15); BUN 8 mg/dL (7-18); BUN/Creat Ratio 11.6 RATIO (10-20); Calcium,Total 9.2 mg/dL (8.5-10.1); Chloride 106 mmol/L (98-107); Creatinine, Serum 0.69 mg/dL (0.55-1.02); EST Glomerular Filtration Rate 94 mL/min (>60); Est Glom Filt Rate - Afr Amer 114 mL/min (>60); Glucose 86 mg/dL (74-106); Potassium 3.5 mmol/L (3.5-5.1); Sodium Level 139 mmol/L (136-145)
== END ==
PROVIDERS: PCP Family Medicine; Referring Provider Family Medicine; Visit Provider Family Medicine
DX: I10 Essential (primary) hypertension (principal)
CPT/HCPCS: 36415; 80048

== ENCOUNTER 2021-05-10 11:44 | Emergency (ER) | payer OTHER, SELFPAY ==
[2021-02-11 17:13] VITALS: BMI 39.9
[2021-05-10 11:45] VITALS: BP 214/89; PULSE 86; RESP 20; TEMP 36.9; O2SAT 100; BMI 39.1
--- NOTE | 2021-05-10 12:27 | EKG12_ITS ---
Test Reason : CP Blood Pressure : / mmHG Vent. Rate : 080 BPM Atrial Rate : 080 BPM P-R Int : 154 ms QRS Dur : 092 ms QT Int : 382 ms P-R-T Axes : 033 014 015 degrees QTc Int : 440 ms Normal sinus rhythm Nonspecific ST abnormality Abnormal ECG Confirmed by BENEDICTO FISCHER, FREDY ([id number]), production editor MARCIE ACEVEDO ([id number]) on 05/13/2021 9:53:55 AM Referred By: JOSE Confirmed By:FREDY DIANE MD
[2021-05-10 12:51] VITALS: BP 173/82; PULSE 80; RESP 21; O2SAT 99
--- NOTE | 2021-05-10 12:52 | RAD_ITS ---
STUDY: X-RAY CHEST REASON FOR EXAM: Female, 55 years old. Chest pain TECHNIQUE: Single AP portable view of the chest. COMPARISON: Comparison is made with prior study 02/11/2021. FINDINGS: EKG electrodes are seen. The lungs are clear and expanded. There is no demonstrated pleural abnormality. Normal size heart. Normal mediastinum and carlyle. Normal visualized pulmonary arteries. Normal visualized aortic arch and descending thoracic aorta. Normal visualized thoracic spine. Normal visualized ribs, clavicles, and shoulders. There is no demonstrated abnormality of the visualized soft tissue structures of the upper abdomen. RAD/Chest 1 View (Portable) IMPRESSION: Normal x-ray examination of the chest. Electronically Signed: Enrique Mann MD at 13:27 EDT , Service support ,
[2021-05-10 12:56] LABS: Absolute Lymphocyte Count 3.29 X10^3/uL (0.83-4.51); Basophil# 0.04 X10^3/uL; Basophil% 0.3 % (0-1); Eosinophil# 0.08 X10^3/uL; Eosinophils% 0.6 % (0-5); Hematocrit 41.3 % (37-47); Hemoglobin 13.7 g/dL (12.0-15.0); Lymphocyte # 3.29 X10^3/ul (0.83-4.51); Mean Corp Hgb Conc 33.2 g/dL (32-36); Mean Corpuscular Hgb 29.2 pg (27.0-32.0); Mean Corpuscular Volume 88.1 fL (81-99); Mean Platelet Vol. 10.3 fl (6.2-12.0); Monocyte# 1.22 X10^3/uL; Monocyte% 8.9 % (0-10); NRBC Flagged by Analyzer 0 % (0-5); Neutrophil # 8.97 X10^3/uL (2.7-7.7); Neutrophil % 65.3 % (47-70); Platelet Count 488 K/mm3 (150-450); RBC Distribution Width CV 14.2 % (11.6-14.6); RBC Distribution Width SD 45.4 fl (35.1-43.9); Red Blood Count 4.69 M/mm3 (4.2-5.4); White Blood Count 13.7 K/mm3 (4.4-11.0)
--- NOTE | 2021-05-10 13:00 | ED.VIS.CHEST ---
HPI History of Present Illness Chief Complaint: Chest Pain Informant: patient and spouse/S.O. Narrative Narrative: 55-year-old female presents for the evaluation of chest pain. Described as a chest pressure. She states that she has been in the emergency room twice this year with similar symptoms and each time has been found to be hypokalemic. She states that the first time she was hypokalemic they took her off of her HCTZ. No cause for her hypokalemia has been found. She notes she also becomes hypertensive during these events. She has not had a cardiac stress test. No DVT PE risk factors. [facility] Medical History Hypertension Home Medications amlodipine 5 mg tablet 10 mg PO DAILY 09/23/20 [History Last Taken Unknown] levothyroxine 112 mcg tablet 125 mcg PO DAILY tab 09/23/20 [History Last Taken Unknown] cholecalciferol (vitamin D3) 4,000 units PO DAILY 10/31/20 [History Last Taken Unknown] potassium chloride 40 meq PO DAILY 05/10/21 [History Last Taken Unknown] Allergy/AdvReac Type Severity Reaction Status Date / Time meloxicam AdvReac Mild Palpitation Verified 05/10/21 11:44 s Social History (Updated 05/10/21 @ 13:[address] Hussein Macias DO) Smoking Status: Never smoker substance use type: does not use ROS ROS ED Constitutional Constitutional ED: Denies chills or weight loss Eyes Eyes: Denies change in vision or diplopia ENT ENT ED: Denies ear pain, rhinorrhea or sore throat Cardiovascular Cardiovascular: Reports chest pain; Denies orthopnea, palpitations or racing heartbeat Respiratory/Chest Respiratory/Chest: Reports dyspnea; Denies cough or orthopnea Gastrointestinal Gastrointestinal: Denies abdominal pain, diarrhea, nausea or vomiting Genitourinary Genitourinary ED: Denies dysuria, hematuria or urinary frequency Musculoskeletal Musculoskeletal: Denies arthralgias or myalgias Integumentary Denies abscess or rash Neurologic Neurologic: Denies headache(s) or weakness Psychiatric Psychiatric: Denies anxiety, depression, suicidal ideation or suicidal thoughts Endocrine Endocrinology: Denies polydipsia, polyphagia or polyuria Allergic/Immunologic Allergic/Immunologic ED: Denies mouth swelling, tongue swelling or urticaria EXAM Physical Exam Const Vital Signs: 05/10/21 11:45 05/10/21 11:47 05/10/21 12:51 Temperature 98.5 F Temperature Source Oral Pulse Rate 86 80 Respiratory Rate 20 H 21 H Respiratory Pattern Normal Blood Pressure 214/89 H 173/82 H Blood Pressure Mean 130 112 Pulse Ox 100 99 Oxygen Delivery Method Room Air Room Air 05/10/21 13:14 05/10/21 14:28 Temperature Temperature Source Pulse Rate 74 80 Respiratory Rate 15 17 Respiratory Pattern Blood Pressure 177/105 H 178/92 H Blood Pressure Mean 129 120 Pulse Ox 98 98 Oxygen Delivery Method Room Air Positive well nourished and well developed General Appearance ED: well developed HEENT Reports normocephalic, head/scalp atraumatic and moist mucous membranes Eyes PERRL and EOMs intact bilaterally Neck no lymphadenopathy, supple and no JVD Resp normal respiratory effort and clear to auscultation bilaterally Cardio regular rate, regular rhythm and no murmurs GI normal to inspection, nondistended, normoactive bowel sounds and non-tender Palpation: soft Back/Spine no CVA tenderness and normal ROM Extremity normal to inspection General Extremety ED: Negative for edema General Extremity: Negative for edema Neuro oriented x3 and CN's II-XII intact bilaterally Sensorium / Orientation: alert Motor Exam: strength 5/5 throughout Psych mental status grossly normal Mood & Affect: Negative for depressed or tearful Skin no rashes or lesions noted and no wounds Heart Score History: Slightly/Non-Suspicious Age: >45 - <65 years Risk Factors: 1 or 2 Risk Factors Troponin: </= Normal Limit Score: 2 MDM MDM MDM Narrative Medical decision making narrative: . White count 13.7 age-adjusted D-dimer is normal. Troponin high-sensitivity 4.2. Potassium 3.4. Patient's blood pressures come down 178/92 from the 214/89. I think the patient is chronically hypokalemic and is probably experiencing hypertensive urgency episodes. She states that for the 3 episodes that she has come in so far this year her blood pressure has been high. Think that perhaps she is chronically hypokalemic and may be her body does well at 3.4. I do not think that this is her thyroid as she has been having to go on higher doses of the levothyroxine. Patient did receive some supplemental oral potassium as she did not want IV potassium. Patient would like to visit with a knowledge architect I can give her Dr. David who is on-call today. Would recommend follow-up with her doctor. Lab Data Attestation: I reviewed the patient's lab results. Labs: Laboratory Results - last 24 hr 05/10/21 05/10/21 05/10/21 11:50 11:50 14:26 WBC 13.7 H RBC 4.69 Hgb 13.7 Hct 41.3 MCV 88.1 MCH 29.2 MCHC 33.2 RDW Std Deviation 45.4 H RDW Coeff of Bisi 14.2 Plt Count 488 H MPV 10.3 Immature Gran % (Auto) 0.900 Neut % (Auto) 65.3 Lymph % (Auto) 24.0 Newberry % (Auto) 8.9 Eos % (Auto) 0.6 Baso % (Auto) 0.3 Absolute Neuts (auto) 9.0 H Absolute Lymphs (auto) 3.29 Nucleated RBC % 0 D-Dimer Quant (PE/DVT) 0.51 H* Sodium 140 Potassium 3.4 L Chloride 103 Carbon Dioxide 31.0 Anion Gap 6 BUN 11 Creatinine 0.72 Estim Creat Clear Calc 66.62 Est GFR (MDRD) Af Amer 107 Est GFR (MDRD) Non-Af 89 BUN/Creatinine Ratio 15.2 Glucose 84 Calcium 9.6 Troponin I High Sens 4.2 Radiography Diagnostic Testing: Radiology Impression Chest X-Ray 05/10/21 12:52 IMPRESSION: Normal x-ray examination of the chest. Electronically Signed: Enrique Mann MD at 13:27 EDT , Service support , EKG Initial EKG: Attestation: I personally reviewed and interpreted this EKG as follows: Comments: EKG demonstrates normal sinus rhythm at a rate of 80 bpm. No concerning features of ACS or ectopy noted. Discharge Plan Triage Chief Complaint: Chest Pain ED Provider: Hussein Macias Dx/Rx/DC Orders Clinical Impression: Hypertensive urgency, Chronic hypokalemia Instructions: ED High Blood Pressure Hypertension, ED Hypokalemia Prescriptions: No Action levothyroxine 112 mcg tablet 125 mcg PO DAILY RF: 0 amlodipine 5 mg tablet 10 mg PO DAILY RF: 0 cholecalciferol (vitamin D3) 2,000 UNIT capsule 4,000 units PO DAILY RF: 0 potassium chloride 20 mEq tablet,ER particles/crystals 40 meq PO DAILY RF: 0 Primary Care Provider: Andreas Montilla Referrals: Andreas Lambert MD [STAFF PHYSICIAN] - As Needed (for cardiology) Andreas Montilla MD [Primary Care Provider] - As soon as possible Disposition Disposition: Home, Self Care
[2021-05-10 13:11] LABS: Anion Gap 6 (5-15); BUN 11 mg/dL (7-18); BUN/Creat Ratio 15.2 RATIO (10-20); Calcium,Total 9.6 mg/dL (8.5-10.1); Chloride 103 mmol/L (98-107); Creatinine, Serum 0.72 mg/dL (0.55-1.02); EST Glomerular Filtration Rate 89 mL/min (>60); Est Glom Filt Rate - Afr Amer 107 mL/min (>60); Estimated Creatinine Clearance 66.62 ml/min; Glucose 84 mg/dL (74-106); Potassium 3.4 mmol/L (3.5-5.1); Sodium Level 140 mmol/L (136-145); Troponin-I HS 4.2 pg/mL (3.0-53.7)
[2021-05-10 13:14] VITALS: BP 177/105; PULSE 74; RESP 15; O2SAT 98
[2021-05-10] MEDS: Potassium Chloride Oral Tablet 20 MEQ 40 MEQ PO (14:26)
[2021-05-10 14:28] VITALS: BP 178/92; PULSE 80; RESP 17; O2SAT 98
[2021-05-10 14:45] LABS: D-Dimer Quantitative (DVT/PE) 0.51 FEU/ug/m (0.27-0.49)
[2021-05-10 16:03] VITALS: BP 179/82
== END 2021-05-10 16:04 | disposition home or self-care (01) ==
PROVIDERS: Emergency Provider Emergency Medicine; PCP Family Medicine
DX: R07.9 Chest pain, unspecified (principal); I16.0 Hypertensive urgency; E87.6 Hypokalemia; I10 Essential (primary) hypertension; Z79.890 Hormone replacement therapy; Z79.899 Other long term (current) drug therapy
CPT/HCPCS: 71045; 80048; 84484; 85025; 85379; 93005; 99285; J7030; A4216

== ENCOUNTER → 2021-09-19 11:34 | Outpatient (CLI) | payer OTHER, SELFPAY ==
[2021-09-19 15:31] LABS: Anion Gap 6 (5-15); BUN 9 mg/dL (7-18); BUN/Creat Ratio 13.3 RATIO (10-20); Calcium,Total 9.4 mg/dL (8.5-10.1); Chloride 103 mmol/L (98-107); Cholesterol 176 mg/dL (200); Creatinine, Serum 0.68 mg/dL (0.55-1.02); EST Glomerular Filtration Rate 96 mL/min (>60); Est Glom Filt Rate - Afr Amer 116 mL/min (>60); Free T3 2.7 pg/mL (2.18-3.98); Glucose 85 mg/dL (74-106); High Density Lipoprotein 70 mg/dL; Potassium 3.1 mmol/L (3.5-5.1); Sodium Level 140 mmol/L (136-145); T4 Free Direct 1.37 ng/dL (0.76-1.46); Triglycerides 81 mg/dL; Very Low Density Lipoprotein 16 mg/dL (5-40)
== END ==
PROVIDERS: PCP Family Medicine; Visit Provider Family Medicine
DX: I10 Essential (primary) hypertension (principal); E03.9 Hypothyroidism, unspecified
CPT/HCPCS: 36415; 80048; 80061; 84439; 84443; 84481

== ENCOUNTER 2021-10-26 15:24 | Outpatient (CLI) | payer OTHER, SELFPAY ==
--- NOTE | 2021-10-26 15:28 | US_ITS ---
STUDY: ABDOMINAL ULTRASOUND - RIGHT UPPER QUADRANT REASON FOR VISIT: Female, 56 years old acute cholecystitis TECHNIQUE: Ultrasound evaluation of the right upper quadrant was performed with real-time and static brower-scale imaging. TECHNICAL QUALITY: Adequate. COMPARISON: None. FINDINGS: Liver: The liver measures 17.5 cm. There is diffusely increased echogenicity of the liver. The bile ducts are within normal limits. There is hepatic color flow. The direction of portal flow is hepatopetal. There is no demonstrated mass lesion. Gallbladder: Normal distended gallbladder. The gallbladder wall measures 2 mm. There is a negative sonographic Augustine''s sign. There is no pericholecystic fluid. There are no gallstones. Common Bile Duct (C.B.D.): The common bile duct measures 5 mm. Pancreas: Normal size of the head, body and tail of the pancreas. There is diffusely increased echogenicity of the pancreas. There is no demonstrated pancreatic mass or cyst. Right Kidney: Normal size of the right kidney. The right kidney measures 12.2 x 5 x 4.7 cm. Normal renal cortex. The right cortex measures 1.4 cm. There is no demonstrated renal mass or cyst. There is no right hydronephrosis. US/Abdomen Limited IMPRESSION: Enlarged fatty infiltrated liver. No evidence for gallstones or acute cholecystitis Diffusely hyperechoic pancreas which may be on the basis of chronic pancreatitis Electronically Signed: Watson Crocker MD at 16:06 EST , Service support ,
== END 2021-10-26 23:59 | disposition short-term general hospital (02) ==
LOC: US 15:27
PROVIDERS: PCP Family Medicine; Referring Provider Family Medicine; Visit Provider Family Medicine
DX: K76.0 Fatty (change of) liver, not elsewhere classified (principal); R10.11 Right upper quadrant pain
CPT/HCPCS: 76705

== ENCOUNTER 2021-11-18 09:58 | Outpatient (CLI) | payer OTHER, SELFPAY ==
[2021-11-18 12:43] LABS: Amylase 33 U/L (25-115); Lipase 53 U/L (73-393); Thyroid Stim Hormone (TSH) 3.81 uIU/mL (0.358-3.74)
[2021-11-18 12:50] LABS: Anion Gap 6 (5-15); BUN 8 mg/dL (7-18); BUN/Creat Ratio 11.6 RATIO (10-20); Calcium,Total 9.6 mg/dL (8.5-10.1); Chloride 106 mmol/L (98-107); Creatinine, Serum 0.69 mg/dL (0.55-1.02); EST Glomerular Filtration Rate 93 mL/min (>60); Est Glom Filt Rate - Afr Amer 113 mL/min (>60); Glucose 93 mg/dL (74-106); Potassium 3.4 mmol/L (3.5-5.1); Sodium Level 140 mmol/L (136-145)
== END 2021-11-18 23:59 | disposition short-term general hospital (02) ==
LOC: MFPLAB 10:02
PROVIDERS: Family Medicine; PCP Family Medicine; Referring Provider Family Medicine; Visit Provider Family Medicine
DX: K86.1 Other chronic pancreatitis (principal); E87.6 Hypokalemia; E66.9 Obesity, unspecified
CPT/HCPCS: 36415; 80048; 82150; 83690; 84443

== ENCOUNTER 2021-12-14 09:49 | Outpatient (CLI) | payer OTHER, SELFPAY ==
--- NOTE | 2021-12-14 09:54 | NM_ITS ---
CLINICAL: 56-year-old female with reported history of right upper quadrant abdominal pain. RADIONUCLIDE HEPATOBILIARY SCINTIGRAPHY COMPARISON: Abdominal ultrasound report 10/26/2021 FINDINGS: Following the intravenous administration of 5.6 mCi of 99m Tc Mebrofenin, hepatobiliary images reveal: 1. Relatively prompt and homogeneous radiopharmaceutical concentration is noted by the liver parenchyma. No parenchymal defects are identified. 2. Gallbladder activity is identified at 30 minutes post radiopharmaceutical administration. 3. Small intestinal tract is observed at 15 minutes following tracer injection. 4. Washout of the radiopharmaceutical by the hepatic parenchyma appears qualitatively normal. Cholecystokinin (0.02 ug/kg) was administered intravenously over a 30-minute period. The post CCK gallbladder ejection fraction calculated at 20 minutes following Cholecystokinin administration was noted to be < 5 % (normal greater than 35%). OH/Hepatobilliary Img w/Pharm Int IMPRESSION: 1. ABNORMAL 99m Tc Mebrofenin hepatobiliary imaging examination with Cholecystokinin. A. A gallbladder ejection fraction calculated to be less than 35% following the administration of Cholecystokinin is consistent with the presence of functional hepatobiliary disease (gallbladder and/or sphincter of Oddi dyskinesia) and/or organic hepatobiliary disease (chronic acalculous cholecystitis and/or cystic duct syndrome) in patients with intermediate to high pretest probabilities of hepatobiliary illness. (Yosi Velazquez et al, Journal of Nuclear Medicine 32:1695, 1991). Electronically Signed: Ramirez Mi DO at 22:47 EST ,
== END 2021-12-14 23:59 | disposition home or self-care (01) ==
LOC: NM 09:50
PROVIDERS: PCP Family Medicine; Referring Provider Family Medicine; Visit Provider Family Medicine
DX: R10.11 Right upper quadrant pain (principal)
CPT/HCPCS: 78227; A9537

== ENCOUNTER 2021-12-22 09:25 | Emergency (ER) | payer OTHER, SELFPAY ==
[2021-12-22 09:30] VITALS: BP 199/94; PULSE 75; RESP 16; TEMP 36.8; O2SAT 99; BMI 36.8
--- NOTE | 2021-12-22 10:29 | EX.ED.DYSGE1 ---
HPI History of Present Illness Chief Complaint: Lower Extremity Injury Narrative Narrative: Patient presents with left knee and left upper back pain, this is been ongoing for a few weeks but today she was walking up the steps and instead of stepping only with her right leg up the steps she tried to step with her left leg also, she felt a pain in her knee and went down to the ground she did not actually hit anything but developed significant left knee pain and her back pain got worse. No new injuries. There is radicular symptoms with radiation of the back pain all the way to the calf region, no bowel or bladder compromise no urinary retention symptoms no saddle anesthesia. [facility] Medical History Hypertension Home Medications amlodipine 5 mg tablet 10 mg PO DAILY 09/23/20 [History Last Taken Unknown] levothyroxine 112 mcg tablet 125 mcg PO DAILY tab 09/23/20 [History Last Taken Unknown] cholecalciferol (vitamin D3) 4,000 units PO DAILY 10/31/20 [History Last Taken Unknown] potassium chloride 40 meq PO DAILY 05/10/21 [History Last Taken Unknown] prednisone 10 mg tablet 10 mg PO TID #21 tab 07/27/21 [Rx Last Taken Unknown] dexamethasone [Decadron] 4 mg PO TID #21 tab 12/22/21 [Rx Last Taken Unknown] hydrocodone-acetaminophen 1 tab PO QHS PRN 3 Days #12 tab 12/22/21 [Rx Last Taken Unknown] ondansetron 4 mg PO Q8H #10 tab 12/22/21 [Rx Last Taken Unknown] Allergy/AdvReac Type Severity Reaction Status Date / Time meloxicam AdvReac Mild Palpitation Verified 12/22/21 09:27 s ketorolac [From Toradol] AdvReac Other Verified 12/22/21 09:27 Social History Smoking Status: Never smoker substance use type: does not use ROS ROS ED ROS Narrative Past medical history: Reviewed Medications: Reviewed Social history: Noncontributory Review of systems: All systems negative except as indicated General: No fever Eyes: No visual changes ENT: No upper airway congestion, normal voice Neck: No neck pain Cardiovascular: No chest pain Respiratory: No shortness of breath or cough Gastrointestinal: No abdominal pain, nausea vomiting or diarrhea Genitourinary: No dysuria Musculoskeletal: Back pain and leg pain as in HPI Skin: No rash Neurological: No memory loss, confusion or any focal weakness Psych: No recent behavioral changes Hematologic: No easy bleeding or easy bruising EXAM Physical Exam Narrative Exam Narrative: Vitals reviewed General: Patient appears in some discomfort HEENT: Moist mucous membranes Neck: Nontender Cardiovascular normal heart rate Respiratory: No respiratory difficulty speaking in full sentences Abdomen: Soft and nontender, there is no suprapubic mass or pain Back: There is some tenderness over the lumbar region, pain is spinal and paraspinal both. Extremities: Left knee shows tenderness to posterior stressor but no laxity is no effusion is seen, otherwise negative straight leg test, and no bony tenderness. Moves all other extremities without joint pain or signs of trauma Neurological: There is normal plantar flexion and dorsiflexion of both feet and great toes. Patellar and Achilles reflexes are normal. Normal strength and sensation. Left-sided straight leg test is positive. Skin: No rash Psychiatric: Slightly anxious. Const Vital Signs: 12/22/21 09:30 Temperature 98.2 F Temperature Source Temporal Pulse Rate 75 Respiratory Rate 16 Blood Pressure 199/94 H Blood Pressure Mean 129 Pulse Ox 99 Oxygen Delivery Method Room Air MDM MDM MDM Narrative Medical decision making narrative: Patient did not fall or injure anything she may need an MRI of her knee as well as lumbar region but there are no signs of cauda equina or effusion that she does not meet criteria for emergent MRIs. I will treat her with analgesia since she does have radicular symptoms and she is not a diabetic I do believe steroids are reasonable at this time. I will discharge her with follow-up. Discharge Plan Triage Chief Complaint: Lower Extremity Injury ED Provider: Andreas Moya Dx/Rx/DC Orders Clinical Impression: Sciatica, Left knee pain Instructions: Medicine for Pain, ED Arthralgia, ED Sciatica Prescriptions: New dexamethasone [Decadron] 4 mg tablet 4 mg PO TID Qty: 21 RF: 0 hydrocodone-acetaminophen 5-325 mg tablet 1 tab PO QHS PRN (Reason: pain) 3 Days Qty: 12 RF: 0 ondansetron 4 mg tablet,disintegrating 4 mg PO Q8H Qty: 10 RF: 0 No Action levothyroxine 112 mcg tablet 125 mcg PO DAILY RF: 0 amlodipine 5 mg tablet 10 mg PO DAILY RF: 0 prednisone 10 mg tablet 10 mg PO TID Qty: 21 RF: 0 cholecalciferol (vitamin D3) 2,000 UNIT capsule 4,000 units PO DAILY RF: 0 potassium chloride 20 mEq tablet,ER particles/crystals 40 meq PO DAILY RF: 0 Primary Care Provider: Andreas Montilla Referrals: Andreas Montilla MD [Primary Care Provider] - 3-5 Days Disposition Disposition: Home, Self Care
[2021-12-22] MEDS: HYDROmorphone 1 MG/ML Syringe IM (10:35)
[2021-12-22] MEDS: Ondansetron ODT 4 MG Tablet PO (10:35)
[2021-12-22 11:36] VITALS: BP 176/86; PULSE 74; RESP 16; O2SAT 93
== END 2021-12-22 11:51 | disposition home or self-care (01) ==
PROVIDERS: Emergency Provider Emergency Medicine; PCP Family Medicine; Visit Provider Emergency Medicine
DX: M54.30 Sciatica, unspecified side (principal); M25.562 Pain in left knee; I10 Essential (primary) hypertension; Z79.890 Hormone replacement therapy; Z79.52 Long term (current) use of systemic steroids
CPT/HCPCS: 96372; 99284

== ENCOUNTER 2021-12-29 05:22 | Day surgery (SDC) | payer OTHER, SELFPAY ==
[2021-12-29] VITALS (7 sets, daily range): BP systolic 139–189; BP diastolic 67–85; PULSE 73–84; RESP 16–29; TEMP 36.3–36.7; O2SAT 97–98; BMI 35.0
--- NOTE | 2021-12-29 05:26 | HP.PCM_ITS ---
History and Physical Date of Admission: 12/29/21 Visit Reasons: GALLBLADDER Chief Complaint: Gallbladder Lead Instructor/Flight Attendant Required: No Accompanied by: Is patient in pain?: Yes Pain scale (1-10): 2 Allergies meloxicam Adverse Reaction (Mild, Verified 12/23/21 13:36) Palpitations ketorolac [From Toradol] Adverse Reaction (Verified 12/23/21 13:36) Other Medications amlodipine 5 mg tablet 10 mg PO DAILY 09/23/20 [History Confirmed 12/23/21] levothyroxine 112 mcg tablet 125 mcg PO DAILY tab 09/23/20 [History Confirmed 12/23/21] potassium chloride 40 meq PO DAILY 05/10/21 [History Confirmed 12/23/21] hydrocodone-acetaminophen 1 tab PO QHS PRN 3 Days #12 tab 12/22/21 [Rx Confirmed 12/23/21] ondansetron 4 mg PO Q8H #10 tab 12/22/21 [Rx Confirmed 12/23/21] PFSH Medical History (Updated 12/23/21 @ 14:[address] Dilan Tian MD) Biliary dyskinesia Chronic hypokalemia Hypertension Iliotibial band syndrome of left side Left knee pain Pes anserinus bursitis of left knee Sciatica Sciatica, left side Surgical History (Updated 12/23/21 @ 13:34 by Ofelia Godwin) History of vein stripping Family History (Updated 12/23/21 @ 13:34 by Ofelia Godwin) Father Heart disease Social History (Updated 12/23/21 @ 13:34 by Ofelia Godwin) Smoking Status: Never smoker alcohol intake: current alcohol intake frequency: holidays/special occasions only substance use type: does not use HPI HPI HPI: SHILOH ORONA, is a 56 F who presents to the office today for surgical consultation regarding abdominal pain. The patient is referred by Dr Anna Durbin and a written copy my surgical consult recommendations will be returned to her. The patient's been having trouble with right upper quadrant abdominal pain and felt that she might have gallbladder disease. On October 26, 2021 at the [facility] she had a right upper quadrant ultrasound. There was some diffuse increased echogenicity of the pancreas. No demonstrated mass or cyst. The gallbladder was felt to be normal in distention and normal thickness of the wall. There was no pericholecystic fluid no gallstones and a negative Augustine sign. Diffuse fatty enlargement of the liver was identified.?'s to whether the pancreas could demonstrate pancreatitis. As of November 18, 2021 lipase was normal at 53 and amylase 33. That time her TSH was slightly elevated at 3.81. On December 14, 2021 a hepatobiliary scan was obtained demonstrating prompt uptake of the liver. The gallbladder was identified at 30 minutes. Small bowel was seen at 15 minutes. Ejection fraction was less than 5%. Findings concerning for chronic cholecystitis/biliary dyskinesia. For multiple weeks now since October she has been having a constant right upper quadrant pain that is aggravated by milk products. No bright red blood per rectum or melena. No fever or chills. Just yesterday she fell and injured her right knee. She has yet to get that looked at. She apparently had antecedent problems with that knee prior to the acute injury. She has never had a colonoscopy December 14, 2021 CLINICAL: 56-year-old female with reported history of right upper quadrant abdominal pain. RADIONUCLIDE HEPATOBILIARY SCINTIGRAPHY COMPARISON: Abdominal ultrasound report 10/26/2021 FINDINGS: Following the intravenous administration of 5.6 mCi of 99m Tc Mebrofenin, hepatobiliary images reveal: 1. Relatively prompt and homogeneous radiopharmaceutical concentration is noted by the liver parenchyma. No parenchymal defects are identified. 2. Gallbladder activity is identified at 30 minutes post radiopharmaceutical administration. 3. Small intestinal tract is observed at 15 minutes following tracer injection. 4. Washout of the radiopharmaceutical by the hepatic parenchyma appears qualitatively normal. Cholecystokinin (0.02 ug/kg) was administered intravenously over a 30-minute period. The post CCK gallbladder ejection fraction calculated at 20 minutes following Cholecystokinin administration was noted to be < 5 % (normal greater than 35%). NM/Hepatobilliary Img w/Pharm Int IMPRESSION: 1. ABNORMAL 99m Tc Mebrofenin hepatobiliary imaging examination with Cholecystokinin. A. A gallbladder ejection fraction calculated to be less than 35% following the administration of Cholecystokinin is consistent with the presence of functional hepatobiliary disease (gallbladder and/or sphincter of Oddi dyskinesia) and/or organic hepatobiliary disease (chronic acalculous cholecystitis and/or cystic duct syndrome) in patients with intermediate to high pretest probabilities of hepatobiliary illness. (Yosi Quijano al, Journal of Nuclear Medicine 32:1695, 1991). Electronically Signed: Ramirez Mi, at 22:47 EST , ROS General General: Yes fatigue; No weight change, appetite, colon cancer, breast cancer or weakness HEENT HEENT: No difficulty swallowing, eye injury, eye surgery, swollen glands or hoarseness Endo Endocrine: Yes thyroid disease; No diabetes mellitus, thyroid cancer, Hair loss, heat intolerance or cold intolerance Skin Skin: No rash or changing moles Breast Breast: No left breast lump, right breast lump, nipple discharge, breast pain, abnormal mammogram, abnormal US or breast enlargement Musc Musculoskeletal: Yes back problems and arthritis; No rheumatoid arthritis, gout or joint pain Cardio Cardiovascular: Yes high blood pressure; No murmur, pacemaker, heart disease, atrial fibrillation, heart attack, heart stent, palpitations, shortness of breat with exertion or chest pain Psych Psychiatric: Yes anxiety; No depression or hearing voices Resp Respiratory: No shortness of breath, No sleep apnea, No cough, No COPD, No asthma, No emphysema and No wheezing Gastro Gastrointestinal: Yes abdominal pain, No nausea or vomiting, No diarrhea, No constipation, No blood in stool, No acid reflux, No hemorrhoids, No ulcers, Yes gallbladder problem and No black,tarry stools Additional Details: Pancreatitis? Norbert Hematologic: No blood thinners, No blood disorders, No bleeding, No anemia and No blood clots Neuro Neurologic: No system reviewed and no additional complaints, except as documented, No as per HPI, No abnormal gait, No abnormal hearing, No abnormal movements, No abnormal speech, No behavioral changes, No burning sensations, No confusion, No convulsions, No disequilibrium, No dizziness, No localized weakness, No frequent falls, No headache(s), No lack of coordination, No loss of vision, No memory loss, No numbness, No other visual disturbances, No radicular pain, No restless legs, No sensory deficit, No syncope, No tingling, No tremor(s), No weakness and No other Exam Const General: cooperative, comfortable and no acute distress Nutritional Appearance: average body habitus Orientation: alert and awake HENMT Head: normal to inspection Neck Neck: normal visual inspection Resp Effort & Inspection: normal respiratory effort Cardio Rate: regular rate Rhythm: regular rhythm GI Palpation: soft and no hepatosplenomegaly Musc Cervical Spine: normal cervical lordosis Skin General: no rashes or lesions noted Neuro General: patient awake Extrem General: no calf tenderness Psych Appearance: grossly normal Assessment and Plan Assessment and Plan (1) Biliary dyskinesia: Status: Inactive (2) Screening for intestinal cancer: Status: Acute Plan - Dr. Dilan Tian MD: I recommended the patient a screening colonoscopy with possible biopsy or polypectomy as indicated. She is aware of the technique, benefit, risk and alternatives. She has had an opportunity to ask and have questions answered. She is agreeable to proceeding. Subsequently I recommend to the patient a laparoscopic cholecystectomy possible selective cholangiography. We have discussed technique benefit risk complication alternatives. No guarantees of resolution of her pain has been of fered. She again has had an opportunity to ask and have questions answered and we will pursue. Because of her acute right knee injury I do recommend that she seek attention for that and I have cautioned her that if she has any significant swelling that could place her at slightly increased risk for having a DVT. I propose that she has that evaluated prior to her proceeding with the cholecystectomy. She has plans to be out of town to [place] in mid December anyways and so we will schedule for the cholecystectomy upon her return. I appreciate the opportunity of assisting with the surgical care Copy: Dr Anna Durbin and Dr. Andreas Tian M.D., F.A.C.S. I have re-examined the patient. There are no clinical changes since date of exam.
[2021-12-29] MEDS: Lactated Ringers 1,000 ML 15 ML IV (06:17)
--- NOTE | 2021-12-29 06:58 | OP.COLON_ITS ---
Patient Name: Gayle Gomez Procedure Date: 12/29/2021 6:17 AM Date of : 1965 Age: 56 Procedure: Colonoscopy Indications: Screening for colorectal malignant neoplasm Providers: Dilan Tian MD Medicines: See the Anesthesia note for documentation of the administered medications Patient Profile: Last Colonoscopy: none. The patient's first colonoscopy is today. Complications: No immediate complications. Procedure: Pre-Anesthesia Assessment: - Prior to the procedure, a History and Physical was performed, and patient medications and allergies were reviewed. The patient's tolerance of previous anesthesia was also reviewed. The risks and benefits of the procedure and the sedation options and risks were discussed with the patient. All questions were answered, and informed consent was obtained. Prior Anticoagulants: The patient has taken no previous anticoagulant or antiplatelet agents. ASA Grade Assessment: II - A patient with mild systemic disease. After reviewing the risks and benefits, the patient was deemed in satisfactory condition to undergo the procedure. After I obtained informed consent, the scope was passed under direct vision. Throughout the procedure, the patient's blood pressure, pulse, and oxygen saturations were monitored continuously. The pediatric colonoscope was introduced through the anus and advanced to the cecum, identified by appendiceal orifice and ileocecal valve. The colonoscopy was performed without difficulty. The patient tolerated the procedure well. The quality of the bowel preparation was good. The ileocecal valve and the appendiceal orifice were photographed. Scope In: 6:37:58 AM Scope Withdrawal Time 0 hours 6 minutes 56 seconds Scope Out: 6:53:27 AM Total Procedure Duration Time 0 hours 15 minutes 29 seconds Findings: Hemorrhoids were found on perianal exam. A few diverticula were found in the sigmoid colon. The exam was otherwise without abnormality. Impression: - Hemorrhoids found on perianal exam. - Diverticulosis in the sigmoid colon. - The examination was otherwise normal. - No specimens collected. Recommendation: - Discharge patient to home. - Resume previous diet. - Continue present medications. - Repeat colonoscopy in 10 years for screening purposes. Procedure Code(s): --- Professional --- 49004, Colonoscopy, flexible; diagnostic, including collection of specimen(s) by brushing or washing, when performed (separate procedure) Diagnosis Code(s): --- Professional --- Z12.11, Encounter for screening for malignant neoplasm of colon K64.9, Unspecified hemorrhoids K57.30, Diverticulosis of large intestine without perforation or abscess without bleeding CPT copyright 2017 [employer]. All rights reserved. The codes documented in this report are preliminary and upon outpatient coder review may be revised to meet current compliance requirements. Dilan Tian MD 12/29/2021 6:57:11 AM This report has been signed electronically. Number of Addenda: 0 Note Initiated On: 12/29/2021 6:17 AM
--- NOTE | 2021-12-29 06:58 | OP.CCLET_ITS ---
12/29/2021 Andreas Montilla MD [address] [id number] Re : Colonoscopy procedure for [facility] Dear Dr. Montilla This procedure was performed on December. My impressions and recommendations are as follows: Impressions : - Hemorrhoids found on perianal exam. - Diverticulosis in the sigmoid colon. - The examination was otherwise normal. - No specimens collected. Recommendations : - Discharge patient to home. - Resume previous diet. - Continue present medications. - Repeat colonoscopy in 10 years for screening purposes. My findings are described in the full procedure note, which is enclosed. If I can be of further assistance, please feel free to contact me at Doctor phone number(s): Work: . Sincerely, Dilan Tian MD 12/29/2021 6:57:11 AM This report has been signed electronically.
== END 2021-12-29 23:59 | disposition home or self-care (01) ==
LOC: EN 05:23 → AC 05:24
PROVIDERS: PCP Family Medicine; Referring Provider Family Medicine; Visit Provider Surgery
PROC: 0DJD8ZZ Inspection of Lower Intestinal Tract, Via Natural or Artificial Opening Endoscopic (ICD-10-PCS; CPT 45378; principal; 2021-12-29 06:25)
DX: Z12.11 Encounter for screening for malignant neoplasm of colon (principal); K57.30 Diverticulosis of large intestine without perforation or abscess without bleeding; I10 Essential (primary) hypertension; K76.0 Fatty (change of) liver, not elsewhere classified; K64.9 Unspecified hemorrhoids; K82.8 Other specified diseases of gallbladder; Z78.0 Asymptomatic menopausal state; Z79.890 Hormone replacement therapy; Z79.899 Other long term (current) drug therapy; E07.9 Disorder of thyroid, unspecified
CPT/HCPCS: 45378; 80048; 84443; 85027; 87426; J7120; J2405

== ENCOUNTER 2022-01-23 07:56 | Day surgery (SDC) | payer OTHER, SELFPAY ==
[2021-12-29 07:39] LABS: Hemoglobin 13.7 g/dL (12.0-15.0); Mean Corp Hgb Conc 32.6 g/dL (32-36); Mean Corpuscular Volume 91.9 fL (81-99); Mean Platelet Vol. 9.8 fl (6.2-12.0); Platelet Count 422 K/mm3 (150-450); RBC Distribution Width CV 13.7 % (11.6-14.6); RBC Distribution Width SD 46.6 fl (35.1-43.9); Red Blood Count 4.57 M/mm3 (4.2-5.4); White Blood Count 9.9 K/mm3 (4.4-11.0)
[2021-12-29 08:02] LABS: Anion Gap 5 (5-15); BUN 10 mg/dL (7-18); BUN/Creat Ratio 14.3 RATIO (10-20); Calcium,Total 9.5 mg/dL (8.5-10.1); Chloride 107 mmol/L (98-107); EST Glomerular Filtration Rate 92 mL/min (>60); Est Glom Filt Rate - Afr Amer 112 mL/min (>60); Glucose 127 mg/dL (74-106); Potassium 3.5 mmol/L (3.5-5.1); Sodium Level 140 mmol/L (136-145); Thyroid Stim Hormone (TSH) 2.87 uIU/mL (0.358-3.74)
[2022-01-23] VITALS (10 sets, daily range): BP systolic 128–165; BP diastolic 59–92; PULSE 73–86; RESP 16–17; TEMP 36.5–37.3; O2SAT 92–98; BMI 36.8
--- NOTE | 2022-01-23 08:05 | EKG12_ITS ---
Test Reason : PRE OP Blood Pressure : / mmHG Vent. Rate : 079 BPM Atrial Rate : 079 BPM P-R Int : 174 ms QRS Dur : 090 ms QT Int : 392 ms P-R-T Axes : 040 013 023 degrees QTc Int : 449 ms Normal sinus rhythm Nonspecific ST abnormality Abnormal ECG When compared with ECG of 10-MAY-2021 11:48, No significant change was found Confirmed by NAYA FISCHER, SHAHAB ([id number]), telegraph editor MARCIE ACEVEDO ([id number]) on 02/03/2022 1:36:24 PM Referred By: Dilan Tian Confirmed By:SEBASTIAN PERSON MD
[2022-01-23] MEDS: Lactated Ringers 1,000 ML 15 ML IV (08:27)
--- NOTE | 2022-01-23 08:52 | PCM.HP.BLA ---
History and Physical Date of Admission: 01/23/22 ntake Visit Reasons: GALLBLADDER Chief Complaint: Gallbladder Data Warehouse Developer Required: No Accompanied by: Is patient in pain?: Yes Pain scale (1-10): 2 Allergies meloxicam Adverse Reaction (Mild, Verified 12/23/21 13:36) Palpitations ketorolac [From Toradol] Adverse Reaction (Verified 12/23/21 13:36) Other Medications amlodipine 5 mg tablet 10 mg PO DAILY 09/23/20 [History Confirmed 12/23/21] levothyroxine 112 mcg tablet 125 mcg PO DAILY tab 09/23/20 [History Confirmed 12/23/21] potassium chloride 40 meq PO DAILY 05/10/21 [History Confirmed 12/23/21] hydrocodone-acetaminophen 1 tab PO QHS PRN 3 Days #12 tab 12/22/21 [Rx Confirmed 12/23/21] ondansetron 4 mg PO Q8H #10 tab 12/22/21 [Rx Confirmed 12/23/21] PFSH Medical History (Updated 12/23/21 @ 14:[address] Dilan Tian MD) Biliary dyskinesia Chronic hypokalemia Hypertension Iliotibial band syndrome of left side Left knee pain Pes anserinus bursitis of left knee Sciatica Sciatica, left side Surgical History (Updated 12/23/21 @ 13:34 by Ofelia Godwin) History of vein stripping Family History (Updated 12/23/21 @ 13:34 by Ofelia Godwin) Father Heart disease Social History (Updated 12/23/21 @ 13:34 by Ofelia Godwin) Smoking Status: Never smoker alcohol intake: current alcohol intake frequency: holidays/special occasions only substance use type: does not use HPI HPI HPI: SHILOH ORONA, is a 56 F who presents to the office today for surgical consultation regarding abdominal pain. The patient is referred by Dr Anna Durbin and a written copy my surgical consult recommendations will be returned to her. The patient's been having trouble with right upper quadrant abdominal pain and felt that she might have gallbladder disease. On October 26, 2021 at the [facility] she had a right upper quadrant ultrasound. There was some diffuse increased echogenicity of the pancreas. No demonstrated mass or cyst. The gallbladder was felt to be normal in distention and normal thickness of the wall. There was no pericholecystic fluid no gallstones and a negative Augustine sign. Diffuse fatty enlargement of the liver was identified.?'s to whether the pancreas could demonstrate pancreatitis. As of November 18, 2021 lipase was normal at 53 and amylase 33. That time her TSH was slightly elevated at 3.81. On December 14, 2021 a hepatobiliary scan was obtained demonstrating prompt uptake of the liver. The gallbladder was identified at 30 minutes. Small bowel was seen at 15 minutes. Ejection fraction was less than 5%. Findings concerning for chronic cholecystitis/biliary dyskinesia. For multiple weeks now since October she has been having a constant right upper quadrant pain that is aggravated by milk products. No bright red blood per rectum or melena. No fever or chills. Just yesterday she fell and injured her right knee. She has yet to get that looked at. She apparently had antecedent problems with that knee prior to the acute injury. She has never had a colonoscopy December 14, 2021 CLINICAL: 56-year-old female with reported history of right upper quadrant abdominal pain. RADIONUCLIDE HEPATOBILIARY SCINTIGRAPHY COMPARISON: Abdominal ultrasound report 10/26/2021 FINDINGS: Following the intravenous administration of 5.6 mCi of 99m Tc Mebrofenin, hepatobiliary images reveal: 1. Relatively prompt and homogeneous radiopharmaceutical concentration is noted by the liver parenchyma. No parenchymal defects are identified. 2. Gallbladder activity is identified at 30 minutes post radiopharmaceutical administration. 3. Small intestinal tract is observed at 15 minutes following tracer injection. 4. Washout of the radiopharmaceutical by the hepatic parenchyma appears qualitatively normal. Cholecystokinin (0.02 ug/kg) was administered intravenously over a 30-minute period. The post CCK gallbladder ejection fraction calculated at 20 minutes following Cholecystokinin administration was noted to be < 5 % (normal greater than 35%). NM/Hepatobilliary Img w/Pharm Int IMPRESSION: 1. ABNORMAL 99m Tc Mebrofenin hepatobiliary imaging examination with Cholecystokinin. A. A gallbladder ejection fraction calculated to be less than 35% following the administration of Cholecystokinin is consistent with the presence of functional hepatobiliary disease (gallbladder and/or sphincter of Oddi dyskinesia) and/or organic hepatobiliary disease (chronic acalculous cholecystitis and/or cystic duct syndrome) in patients with intermediate to high pretest probabilities of hepatobiliary illness. (Yosi Velazquez et al, Journal of Nuclear Medicine 32:1695, 1991). Electronically Signed: Ramirez Shmuel, at 22:47 EST , ROS General General: Yes fatigue; No weight change, appetite, colon cancer, breast cancer or weakness HEENT HEENT: No difficulty swallowing, eye injury, eye surgery, swollen glands or hoarseness Endo Endocrine: Yes thyroid disease; No diabetes mellitus, thyroid cancer, Hair loss, heat intolerance or cold intolerance Skin Skin: No rash or changing moles Breast Breast: No left breast lump, right breast lump, nipple discharge, breast pain, abnormal mammogram, abnormal US or breast enlargement Musc Musculoskeletal: Yes back problems and arthritis; No rheumatoid arthritis, gout or joint pain Cardio Cardiovascular: Yes high blood pressure; No murmur, pacemaker, heart disease, atrial fibrillation, heart attack, heart stent, palpitations, shortness of breat with exertion or chest pain Psych Psychiatric: Yes anxiety; No depression or hearing voices Resp Respiratory: No shortness of breath, No sleep apnea, No cough, No COPD, No asthma, No emphysema and No wheezing Gastro Gastrointestinal: Yes abdominal pain, No nausea or vomiting, No diarrhea, No constipation, No blood in stool, No acid reflux, No hemorrhoids, No ulcers, Yes gallbladder problem and No black,tarry stools Additional Details: Pancreatitis? Norbert Hematologic: No blood thinners, No blood disorders, No bleeding, No anemia and No blood clots Neuro Neurologic: No system reviewed and no additional complaints, except as documented, No as per HPI, No abnormal gait, No abnormal hearing, No abnormal movements, No abnormal speech, No behavioral changes, No burning sensations, No confusion, No convulsions, No disequilibrium, No dizziness, No localized weakness, No frequent falls, No headache(s), No lack of coordination, No loss of vision, No memory loss, No numbness, No other visual disturbances, No radicular pain, No restless legs, No sensory deficit, No syncope, No tingling, No tremor(s), No weakness and No other Exam Const General: cooperative, comfortable and no acute distress Nutritional Appearance: average body habitus Orientation: alert and awake [facility] Head: normal to inspection Neck Neck: normal visual inspection Resp Effort & Inspection: normal respiratory effort Cardio Rate: regular rate Rhythm: regular rhythm GI Palpation: soft and no hepatosplenomegaly Musc Cervical Spine: normal cervical lordosis Skin General: no rashes or lesions noted Neuro General: patient awake Extrem General: no calf tenderness Psych Appearance: grossly normal Assessment and Plan Assessment and Plan (1) Biliary dyskinesia: Status: Inactive (2) Screening for intestinal cancer: Status: Acute Plan - Dr. Dilan Tian MD: I recommended the patient a screening colonoscopy with possible biopsy or polypectomy as indicated. She is aware of the technique, benefit, risk and alternatives. She has had an opportunity to ask and have questions answered. She is agreeable to proceeding. A screening colonoscopy was performed and otherwise for diverticulosis and hemorrhoids no acute findings were identified Subsequently I recommend to the patient a laparoscopic cholecystectomy possible selective cholangiography. We have discussed technique benefit risk complication alternatives. No guarantees of resolution of her pain has been offered. She again has had an opportunity to ask and have questions answered and we will pursue. Because of her acute right knee injury I do recommend that she seek attention for that and I have cautioned her that if she has any significant swelling that could place her at slightly increased risk for having a DVT. I propose that she has that evaluated prior to her proceeding with the cholecystectomy. She has plans to be out of town to [place] in mid December anyways and so we will schedule for the cholecystectomy upon her return. I appreciate the opportunity of assisting with the surgical care Copy: Dr Anna Durbin and Dr. Andreas Tian M.D., F.A.C.S. I have re-examined the patient. There are no clinical changes since date of exam.
--- NOTE | 2022-01-23 09:26 | DCINST_ITS ---
Discharge Instructions Procedure General Surgery Diet Discharge Diet: Light diet - advance as tolerated (if you have questions about your diet instructions, please talk to you doctor.) Activity Discharge Activity: May Not Drive (for 3-5 days or while taking narcotic pain medicine.) May shower in (days): 1 Lifting Restrictions: 10 pounds Dressing / Incision Call your doctor if your incision/area has: Continuous Slow Oozing, Sudden Increased Bleeding, Increased Pain/ Swelling, Increased Redness and Foul Smelling Discharge Call your doctor if you observe: Fever of 101 or Higher Suture Line Care: Avoid Pulling/Pushing and Avoid Pinching/Bending Additional Dressing/Incision Instructions:: Change or remove dressing in 4 days. Leave steri-strips in place for 1 week. Follow Up Care Please Follow Up With: Dilan Tian MD When: Call [phone] to make an appointment to be seen in about 10 days. Test Results: Test results from this visit will be discussed in further detail at your follow-up appointment, if applicable. Discharge Plan Admission Attending Provider: Dilan Tian Primary Care Provider: Andreas Montilla Discharge Orders/Prescriptions Prescriptions: No Action levothyroxine 112 mcg tablet 125 mcg PO DAILY RF: 0 amlodipine 5 mg tablet 10 mg PO DAILY RF: 0 potassium chloride 20 mEq tablet,ER particles/crystals 40 meq PO DAILY RF: 0 Other Ambulatory Orders: COVID 19 AG RAPID (RN COLLECT) (Routine) Timeframe: [id number] Facility: [facility] - Location: Laboratory Ordered By: Dr. Devyn Figueroa
--- NOTE | 2022-01-23 09:30 | RAD_ITS ---
STUDY: INTRAOPERATIVE CHOLANGIOGRAM. REASON FOR EXAM: Female, 56 years old. Laparoscopic cholecystectomy. FLUOROSCOPY TIME (if supplied): ( 11.7 seconds ) minutes/seconds. A single run of 7 images were submitted. TECHNIQUE: An intraoperative cholangiogram was performed by the surgeon. Imaging was submitted. COMPARISON: None. FINDINGS: The ejection extrahepatic biliary ducts are unremarkable. There is free flow of contrast into the duodenum. No evidence of choledocholithiasis. RAD/Cholangiogram/ O R,Initial IMPRESSION: Unremarkable intraoperative cholangiogram. Electronically Signed: Enrique Mann MD at 14:51 EDT ,
[2022-01-23] MEDS: Cefazolin 2 GM in 0.9% Normal Saline 100 ML IV (09:32)
--- NOTE | 2022-01-23 10:05 | HERN_PTH ---
PATIENT: SHILOH ORONA [place] [facility] [place][id number] AGE/SX: 56/F ROOM: RE01/23/[address]: Dr. Dilan Tian MD : 1965 BED: DIS: 01/23/2022 SPEC #: [id number] RECD: 01/23/22 12:12 STATUS: KENIA LANDONJannette #: [id number] MEÑO: 01/23/22 10:[address]: Dilan Tian DEPT: SURGICAL PATHOLOGY RECD BY: Roseline Loredo ENTERED: 01/23/22 12:42 SP TYPE: Hernia OTHR DR: Dr. Andreas Montilla MD Tissues: A - HERNIA B - Gallbladder, NOS Procedures: Surgery Specimen Level II Surgery Specimen Level III HEADER OPERATION: Laparoscopic cholecystectomy with IOC and umbilical hernia PRE-OP DIAGNOSIS: Right upper quadrant abdominal pain TISSUE SUBMITTED: A ? Umbilical sac and contents, B - Gallbladder MICROSCOPIC DIAGNOSIS A. Umbilical hernia sac and contents, excision: Fibrofatty tissue with vascular congestion consistent with hernia sac and contents. B. Gallbladder, cholecystectomy: Cholesterolosis and chronic cholecystitis. AM:faisal 01/24/2022 MICROSCOPIC DESCRIPTION Slides are reviewed. GROSS DESCRIPTION A - Received in fixative is one container labeled with the patient's name and designated hernia sac and contents. The specimen consists of two pieces of yellow adipose tissue measuring in aggregate 3 x 1.5 x 0.5 cm. Sections do not reveal any mass lesion. The entire specimen is submitted in one cassette. B - Received is one container labeled with the patient's name and designated gallbladder. The specimen consists of a gallbladder measuring 7.5 cm in length and up to 3.5 cm in diameter. The external surface is pink-conde, smooth and glistening for the most part. Focally it is granular, hemorrhagic and contains cautery artifact. The gallbladder contains green-yellow mucoid bile. No stones are identified in the container or in the gallbladder. The mucosa is bile-stained and without any mass lesions. The gallbladder wall measures up to 0.2 cm in thickness. [employer] sections from the gallbladder and the cystic duct are submitted in one cassette. / SJ:faisal 01/23/2022 TC:3 CPT: 22045, 48659
[2022-01-23] MEDS: Bupivacaine Mpf 0.5% 30 ML VIAL (10:45)
--- NOTE | 2022-01-23 10:50 | PCM.OPRPT ---
Problems Associated Problem List Diagnoses (1) Biliary dyskinesia: Report of Operation Date of Procedure: 01/23/22 Pre-Operative Diagnosis: Biliary dyskinesia Post-Operative Diagnosis: Biliary dyskinesia, umbilical hernia Surgery/Procedure Performed:: Laparoscopic cholecystectomy with cholangiography. Umbilical herniorrhaphy Description of Surgical Findings:: Timeout informed consent was obtained. 56-year-old female was taken to the operating placement table underwent general endotracheal intubation and anesthesia. Ancef 2 g were given as needed venously. The abdomen sterilely prepped and draped. 0.5% Marcaine was used as a local anesthetic. Throughout the procedure total of 30 cc was used. Skin sites were preanesthetized. A vertical infraumbilical incision was created and so doing an umbilical hernia was encountered. Tissue was sharply and bluntly dissected free. The umbilical hernia and contents were transected with her Bovie. Specimen was submitted. Gómez catheter inserted. The abdomen was insufflated with CO2 to a pressure of 10 mmHg pressure. 10 mm meter trocar inserted. Under laparoscopic visualization 5 mm ports were placed in the epigastric mid abdomen right upper quadrant. The gallbladder was distracted there were adhesions of omentum these were bluntly dissected free were needed hemostasis done with Hem-o-loi clips. Then the infundibular area of the gallbladder was addressed and tedious blunt dissection was performed until clearly the cystic artery and cystic duct identified. Critical view was achieved. Hem-o-loi clip was placed on the cystic duct stump and an incision made and tediously due to the small size of the Dr. Cholangiogram catheter was inserted. Fluoroscopically controlled cholangiograms were obtained demonstrating a very small cystic duct however normal flow into the common bile duct and ampulla. Plan TRAM catheter was removed and a Hem-o-loi clip was placed on the cystic duct stump prior to transecting it. Cystic artery was clipped twice proximally once distally prior to transecting it. The gallbladder was now dissected free from the liver bed using electrocautery. Complete hemostasis was obtained with electrocautery. A piece of fibrillar was placed. Hemostasis was intact. The gallbladder was placed in a retrieval bag. The abdomen was allowed to deflate of CO2 through an antiviral valve. The gallbladder was easily removed at the umbilical hernia site. The abdomen was completely deflated. The umbilical hernia was closed with vertical simple sutures of 0 Nurolon. Skin edges were approximated opted for Monocryl subdermal stitches. Steri-Strips Telfa OpSite dressings applied. Sponge and instrument and needle counts were reported to the surgeon to be correct. Specimen umbilical hernia sac contents. Drains none. Blood loss minimal. The patient was taken to the recovery area in satisfactory addition without from complication Dilan Tian M.D., F.A.C.S. Surgeon: Dilan Tian Type of Anesthesia: General and Local
[2022-01-23] MEDS: HYDROcodone Bitartrate/Apap 5/325 Tablet PO (12:32)
--- NOTE | 2022-01-23 14:10 | SUR.PHASEII ---
AMBULATED TO BATHROOM TO VOID. REPORTS TAKING PO WELL.FEELING MILDLY SHAKY, WANTS TO REST LONGER BEFORE D/C HOME. PAGED DR LANDA TO UPDATE.
== END 2022-01-23 23:59 | disposition home or self-care (01) ==
LOC: SDC 07:58 → AC 07:59
PROVIDERS: Anesthesiology; PCP Family Medicine; Referring Provider Surgery; Visit Provider Surgery
PROC: (CPT 47610; principal; 2022-01-23 09:45)
DX: K81.1 Chronic cholecystitis (principal); K42.9 Umbilical hernia without obstruction or gangrene; K76.0 Fatty (change of) liver, not elsewhere classified; E07.9 Disorder of thyroid, unspecified; Z20.822 Contact with and (suspected) exposure to COVID-19; I10 Essential (primary) hypertension; Z79.890 Hormone replacement therapy; Z79.899 Other long term (current) drug therapy; Z78.0 Asymptomatic menopausal state
CPT/HCPCS: 47563; 49585; 74300; 76000; 80048; 84443; 85027; 87426; 87811; 88302; 88304; 93005; C9803; J7120; J2405

== ENCOUNTER → 2022-10-04 | Outpatient (CLI) | payer OTHER, SELFPAY ==
--- NOTE | 2022-10-04 06:40 | MRI_ITS ---
STUDY: MRI LUMBAR SPINE WITHOUT CONTRAST REASON FOR EXAM: Female, 57 years old. Lumbar radiculopathy. TECHNIQUE: Standardized fat and water weighted pulse sequences were obtained in the sagittal and axial planes. COMPARISON: MRI lumbar spine without contrast 03/19/2018. FINDINGS: T9-T10 and T10-T11: (Sagittal only). Normal endplates. Minimal disc space height narrowing. No ventral extradural defects. Normal central canal and bilateral intervertebral neural foramina. T11-T12: (Sagittal only). Normal endplates. Normal disc height, hydration and morphology. Normal central canal and bilateral intervertebral neural foramina. T12-L1: (Sagittal only). Normal endplates. Normal disc height and hydration. Small ventral extradural defect is tiny posterior bulging annulus. Normal central canal and bilateral intervertebral neural foramina. Normal lumbar lordosis. There is no substantial scoliosis. Normal conus medullaris that terminates at the lower L1 vertebral body level. L1-2: Normal endplates. Normal disc height, hydration and morphology. Normal bilateral facet joints. Normal central canal and bilateral lateral recesses. Normal bilateral intervertebral neural foramina. L2-3: Normal endplates. Normal disc height, hydration and morphology. Normal bilateral facet joints. Normal central canal and bilateral lateral recesses. Normal bilateral intervertebral neural foramina. L3-4: Normal endplates. Normal disc height, hydration and morphology. Normal bilateral facet joints. Normal central canal and bilateral lateral recesses. Normal bilateral intervertebral neural foramina. L4-5: Increase anterolisthesis of L4 on L5 is now grade 1. This is secondary to bilateral L4 pars defects. More pronounced disc space height narrowing. Modic type I degenerative vertebral marrow edema underneath the L5 superior endplate is a new finding. There are minimal Modic type I degenerative vertebral marrow edema underneath the L4 inferior endplate is also a new finding. No significant facet arthropathy. Normal central canal and bilateral lateral recesses. Mild stenosis of the bilateral intervertebral neural foramina.. L5-S1: Normal endplates. Mild disc space height narrowing. Minimal ventral extradural defect due to tiny posterior bulging annulus. Normal facet joints. Normal central canal and bilateral lateral recesses. Normal bilateral intervertebral neural foramina. Normal visualized sacral ala. Normal visualized paraspinous soft tissue structures. MRI/Spine Lumbar (Routine) IMPRESSION: 1. Mild increase anterolisthesis of L4 on L5 is no grade 1. This is secondary to bilateral L4 pars defects. Additionally, more pronounced L4-L5 degenerative disc space height narrowing and new intervertebral osteochondritis (Modic type I). This is greater underneath the L5 superior endplate. 2. No MRI evidence of lumbar extruded disc fragment. 3. No other significant interval change when compared to 03/19/2018. Electronically Signed: Khanh Clifton MD at 10:24 EST ,
== END | disposition home or self-care (01) ==
PROVIDERS: PCP Family Medicine; Referring Provider Anesthesiology Pain Medicine; Visit Provider Anesthesiology Pain Medicine
DX: M54.16 Radiculopathy, lumbar region (principal); M43.16 Spondylolisthesis, lumbar region; M51.36 Other intervertebral disc degeneration, lumbar region
CPT/HCPCS: 72148

== ENCOUNTER 2022-12-28 17:10 | Emergency (ER) | payer OTHER, SELFPAY ==
[2022-12-28 17:10] VITALS: BP 191/99; PULSE 81; RESP 16; TEMP 36.2; O2SAT 96; BMI 38.5
--- NOTE | 2022-12-28 17:50 | RAD_ITS ---
INDICATION: chest pain EXAMINATION/TECHNIQUE: X-RAY - XR Chest 2 Views COMPARISON: 05/10/2021 FINDINGS: LINES/DEVICES: None. LUNGS: No consolidation, edema or effusion. No pneumothorax. MEDIASTINUM AND CARDIOVASCULAR STRUCTURES: Cardiac silhouette not enlarged. Central airways and mediastinal contour are unremarkable. BONES AND SOFT TISSUES: Unremarkable. RAD/Chest PA and Lateral IMPRESSION: No radiographic evidence of acute cardiopulmonary disease. Electronically Signed: Jez Tee MD at 18:25 EST ,
[2022-12-28 17:53] LABS: Absolute Lymphocyte Count 2.17 X10^3/uL (0.83-4.51); Absolute Neutrophil Count 6.2 X10^3/uL (2.0-7.7); Basophil# 0.07 X10^3/uL; Basophil% 0.7 % (0-1); Eosinophil# 0.11 X10^3/uL; Eosinophils% 1.2 % (0-5); Hematocrit 41.7 % (37-47); Hemoglobin 13.6 g/dL (12.0-15.0); Lymphocyte # 2.17 X10^3/ul (0.83-4.51); Lymphocyte % 22.9 % (19-41); Mean Corp Hgb Conc 32.6 g/dL (32-36); Mean Corpuscular Hgb 29.8 pg (27.0-32.0); Mean Corpuscular Volume 91.4 fL (81-99); Mean Platelet Vol. 10.2 fl (6.2-12.0); Monocyte# 0.92 X10^3/uL; Monocyte% 9.7 % (0-10); NRBC Flagged by Analyzer 0 % (0-5); Neutrophil # 6.18 X10^3/uL (2.7-7.7); Neutrophil % 65.1 % (47-70); Platelet Count 385 K/mm3 (150-450); RBC Distribution Width CV 13.5 % (11.6-14.6); RBC Distribution Width SD 45.3 fl (35.1-43.9); Red Blood Count 4.56 M/mm3 (4.2-5.4); White Blood Count 9.5 K/mm3 (4.4-11.0)
--- NOTE | 2022-12-28 17:57 | EX.ED.DYSGE1 ---
HPI <DEVON Rao - Last Filed: 12/28/22 19:09> History of Present Illness Chief Complaint: Chest Pain Narrative Narrative: Patient is a 57-year-old female with history of hypertension on amlodipine 10 mg, hypothyroidism, history of low potassium who presents to the emergency department with complaints of 1 week of palpitations, chest pressure, increasing blood pressure. Patient does have a follow-up appointment for her blood pressure tomorrow at [address] Montilla. Patient states that she called today to get in sooner however she is scared secondary to having a strong family history of heart disease. She denies any diaphoresis, nausea or vomiting. PFS <DEVON Rao - Last Filed: 12/28/22 19:09> [facility] Medical History (Updated 12/28/22 @ 19:[address] Jim Andrew MD) Biliary dyskinesia Cephalgia Chest pain Chronic cholecystitis Chronic hip pain Chronic hypokalemia Contact with and (suspected) exposure to other viral communicable diseases Hypertension Iliotibial band syndrome of left side Left knee pain Pes anserinus bursitis of left knee Post-menopausal Sciatica Sciatica, left side Thyroid disease Uncontrolled hypertension Home Medications amlodipine 5 mg tablet 10 mg PO DAILY 09/23/20 [History Last Taken 01/23/22] levothyroxine 112 mcg tablet 125 mcg PO DAILY 09/23/20 [History Last Taken 01/23/22] potassium chloride 20 mEq tablet,extended release(part/cryst) 40 meq PO DAILY 05/10/21 [History Last Taken 01/23/22] cholecalciferol (vitamin D3) 125 mcg (5,000 unit) capsule 125 mcg PO DAILY 11/20/22 [History Last Taken Unknown] Allergy/AdvReac Type Severity Reaction Status Date / Time midazolam [From Versed] AdvReac Severe JITTERY, Verified 12/28/22 17:10 ANXIOUS, HYPER meloxicam AdvReac Mild Palpitation Verified 12/28/22 17:10 s ketorolac [From Toradol] AdvReac Other Verified 12/28/22 17:10 Family History Father Heart disease Surgical History (Updated 12/28/22 @ 17:49 by Kelsey Leon) History of cholecystectomy History of vein stripping Hx of dilation and curettage Social History Smoking Status: Never smoker alcohol intake: current alcohol intake frequency: holidays/special occasions only substance use type: does not use ROS <DEVON Rao - Last Filed: 12/28/22 19:09> ROS ED ROS Narrative Constitutional: Negative for fever, chills, weight loss, weakness Eyes: Negative for vision loss, vision change, double vision ENT: Negative for any sore throat, ear pain, congestion Cardiovascular: Negative for any chest pain. Positive chest tightness, palpitations Respiratory: Negative for any cough, sputum production, hemoptysis, dyspnea, dyspnea on exertion, orthopnea Gastrointestinal: Negative for any abdominal pain, nausea, vomiting, diarrhea, constipation, blood in stool, blood in vomit : Negative for any urinary frequency, dysuria, retention, blood in urine Muscle skeletal: Negative for any muscle joint pain, stiffness, myalgias, arthralgias, neck pain, back pain Neurological: Negative for any headache, syncope, numbness or tingling, dizziness Skin: Negative for any rashes, lumps, itching, abrasions, lacerations Psychiatric: Negative for any depression, suicidal ideation, homicidal ideation. Positive for increased anxiety and stress Hematologic: Negative for any easy bruising, excessive bruising, easy bleeding Allergies: Negative for any eczema, hives, rash EXAM <DEVON Rao - Last Filed: 12/28/22 19:09> Physical Exam Narrative Exam Narrative: Vital signs reviewed. HEET: Head normocephalic atraumatic, TMs clear bilaterally. Posterior pharynx is clear, moist mucous membranes. Nares clear bilaterally. Neck: Supple with no lymphadenopathy or tenderness. No signs of meningismus, negative jolt sign. Cardiac: Regular rate and rhythm no murmurs gallops or rubs, equal peripheral pulses bilaterally. Respiratory: Lungs clear to auscultation bilaterally. No chest tenderness. Abdomen: Soft, nontender, nondistended. No abdominal bruit or pulsatile masses. No hepatosplenomegaly Extremities: No peripheral edema, no signs of gross trauma or deformity. Active full range of motion of all extremities. Neuro: Cranial nerves II through XII intact, no focal neurological deficits. Skin: Clean dry and intact with no rash, purpura, petechiae, vesicles or pustules. Backs/flank: No CVA tenderness, no midline spinal tenderness, no deformity. Psych: Normal mood and affect. No SI, HI or acute psychosis. Const Vital Signs: 12/28/22 17:10 12/28/22 17:41 Temperature 97.1 F L Temperature Source Temporal Pulse Rate 81 Respiratory Rate 16 Blood Pressure 191/99 H Blood Pressure Mean 129 Pulse Ox 96 Oxygen Delivery Method Room Air Room Air Positive well nourished and well developed General Appearance ED: well developed <Dr. Jim Andrew MD - Last Filed: 12/28/22 19:16> Physical Exam Const Vital Signs: 12/28/22 17:10 12/28/22 17:41 Temperature 97.1 F L Temperature Source Temporal Pulse Rate 81 Respiratory Rate 16 Blood Pressure 191/99 H Blood Pressure Mean 129 Pulse Ox 96 Oxygen Delivery Method Room Air Room Air MDM <DEVON Rao - Last Filed: 12/28/22 19:09> MDM Lab Data Labs: Laboratory Results - last 24 hr 12/28/22 12/28/22 12/28/22 17:40 17:40 17:40 WBC 9.5 RBC 4.56 Hgb 13.6 Hct 41.7 MCV 91.4 MCH 29.8 MCHC 32.6 RDW Std Deviation 45.3 H RDW Coeff of Bisi 13.5 Plt Count 385 MPV 10.2 Immature Gran % (Auto) 0.400 Neut % (Auto) 65.1 Lymph % (Auto) 22.9 [place] % (Auto) 9.7 Eos % (Auto) 1.2 Baso % (Auto) 0.7 Absolute Neuts (auto) 6.2 Absolute Lymphs (auto) 2.17 Nucleated RBC % 0 Sodium 141 Potassium 3.3 L Chloride 106 Carbon Dioxide 27.0 Anion Gap 8 BUN 11 Creatinine 0.66 Estim Creat Clear Calc 70.97 Est GFR (MDRD) Af Amer 119 Est GFR (MDRD) Non-Af 98 BUN/Creatinine Ratio 16.7 Glucose 94 Calcium 9.5 Troponin I High Sens 8 B-Natriuretic Peptide 22.1 TSH 3.25 Radiography Diagnostic Testing: Clinical Impression(s) from Imaging Studies Chest X-Ray 12/28/22 17:50 IMPRESSION: No radiographic evidence of acute cardiopulmonary disease. Electronically Signed: Jez Tee MD at 18:25 EST Reading Location ID and State: [facility] / [place] Tel , Service support , EKG Normal sinus rhythm: Attestation: I personally reviewed and interpreted this EKG as follows: Comments: EKG reviewed by ER physician, shows a rate of 73 bpm [place] interval 184 ms, QRS duration 82 ms, no acute ST elevation, no acute infarct noted Differential Diagnosis Chest pain/SOB: ACS, pneumothorax and pneumonia Treatment and Re-Evaluation :: Patient appears well, patient appears nontoxic, vital signs are stable. Patient presents to the emergency department with 1 week of chest pressure, elevated blood pressure. Patient's blood pressure was elevated, 191/99. Patient does have an appointment with her PCP tomorrow morning. Patient did receive a full cardiac work-up. Patient's chest x-ray showed no acute evidence of cardiopulmonary disease. EKG was unremarkable, no elevation or ectopy. Patient's laboratory studies showed a normal TSH, negative troponin, potassium only slightly low at 3.3 however this is baseline for the patient looking back from August 2021. Patient CBC was unremarkable. Patient did receive a GI cocktail with minimal relief. At this time, there is no evidence to suspect any ACS, LA, pneumonia. Patient does have elevated blood pressure however this will be managed by her PCP tomorrow morning around 9 AM. At this time, do believe patient is safe for discharge. I had a long conversation with the patient as well as with the patient's . Everyone is on the same page, they would like to go home and follow-up outpatient. The patient is happy with the plan of care and is stable for discharge. Patient and were given return precaution. <Dr. Jim Andrew MD - Last Filed: 12/28/22 19:16> [facility] Lab Data Attestation: I reviewed the patient's lab results. Labs: Laboratory Results - last 24 hr 12/28/22 12/28/22 12/28/22 17:40 17:40 17:40 WBC 9.5 RBC 4.56 Hgb 13.6 Hct 41.7 MCV 91.4 MCH 29.8 MCHC 32.6 RDW Std Deviation 45.3 H RDW Coeff of Bisi 13.5 Plt Count 385 MPV 10.2 Immature Gran % (Auto) 0.400 Neut % (Auto) 65.1 Lymph % (Auto) 22.9 [place] % (Auto) 9.7 Eos % (Auto) 1.2 Baso % (Auto) 0.7 Absolute Neuts (auto) 6.2 Absolute Lymphs (auto) 2.17 Nucleated RBC % 0 Sodium 141 Potassium 3.3 L Chloride 106 Carbon Dioxide 27.0 Anion Gap 8 BUN 11 Creatinine 0.66 Estim Creat Clear Calc 70.97 Est GFR (MDRD) Af Amer 119 Est GFR (MDRD) Non-Af 98 BUN/Creatinine Ratio 16.7 Glucose 94 Calcium 9.5 Troponin I High Sens 8 B-Natriuretic Peptide 22.1 TSH 3.25 Radiography Diagnostic Testing: Clinical Impression(s) from Imaging Studies Chest X-Ray 12/28/22 17:50 IMPRESSION: No radiographic evidence of acute cardiopulmonary disease. Electronically Signed: Jez Tee MD at 18:25 EST , Treatment and Re-Evaluation Comments:: Seen and evaluated independently and in conjunction with nurse practitioner. Agree with notes above unless documented otherwise. Patient with continuous waxing and waning chest pressure since last night. She states it was worse in the evening, but it has been present all day today, she presents around 5 or 6 PM with the discomfort persistently. No known history of heart problems but she has been having high blood pressures lately. She has been on amlodipine for months, nothing else for blood pressure has an appointment tomorrow. Pressure elevated when she first arrived 190s, however without treating it, she was in the 150s later. Denies any obvious symptoms of acid reflux, but since her cholecystectomy she has been having right upper abdominal discomfort especially after meals. Exam: RRR no murmur, CTAB, well-appearing no distress no calf tenderness. EKG normal, troponin negative. I do not think she needs more measurements emergently or needs to be admitted for this discomfort. We discussed possible esophageal etiologies, we discussed her blood pressure potentially being related but that is unknown. Agree with her following up for continued evaluation and treatment of her blood pressure and the symptoms. Discharge Plan Triage Chief Complaint: Chest Pain ED Midlevel Provider: Andreas Randall ED Provider: Jim Andrew Dx/Rx/DC Orders Clinical Impression: Chest pain, Hypertension, Heart palpitations Instructions: Controlling High Blood Pressure, ED Palpitations Prescriptions: No Action levothyroxine 112 mcg tablet 125 mcg PO DAILY Rx Instructions: once weekly double dose amlodipine 5 mg tablet 10 mg PO DAILY Label Comments: TAKE 1 TABLET BY MOUTH AT BEDTIME cholecalciferol (vitamin D3) 125 mcg (5,000 unit) capsule 125 mcg PO DAILY potassium chloride 20 mEq tablet,ER particles/crystals 40 meq PO DAILY Label Comments: TAKE 2 TABLETS BY MOUTH ONCE DAILY Primary Care Provider: Andreas Montilla Referrals: Andreas Montilla MD [Primary Care Provider] - Activity Restrictions/Additional Instructions: Keep your appointment at 9 AM tomorrow Disposition Disposition: Home, Self Care
[2022-12-28 18:10] LABS: BNP,B-Type NATRIURETIC PEPTIDE 22.1 pg/mL (0-100)
[2022-12-28 18:18] LABS: Anion Gap 8 (5-15); BUN 11 mg/dL (7-18); BUN/Creat Ratio 16.7 RATIO (10-20); Calcium,Total 9.5 mg/dL (8.5-10.1); Chloride 106 mmol/L (98-107); Creatinine, Serum 0.66 mg/dL (0.55-1.02); EST Glomerular Filtration Rate 98 mL/min (>60); Est Glom Filt Rate - Afr Amer 119 mL/min (>60); Estimated Creatinine Clearance 70.97 ml/min; Glucose 94 mg/dL (74-106); Potassium 3.3 mmol/L (3.5-5.1); Sodium Level 141 mmol/L (136-145); Thyroid Stim Hormone (TSH) 3.25 uIU/mL (0.358-3.74); Troponin-I HS (w/2H Reflex) 8 pg/mL (3.0-54.0)
[2022-12-28] MEDS: Mag Hydrox/Al Hydrox/Simeth 30 ML UDC PO (19:13)
[2022-12-28 19:18] VITALS: BP 153/83; PULSE 72; RESP 16; O2SAT 98
[2022-12-28 19:49] LABS: Reflex Troponin-HS? (from REC) Y
== END 2022-12-28 19:20 | disposition home or self-care (01) ==
PROVIDERS: Nurse Practitioner; Emergency Provider Emergency Medicine; PCP Family Medicine; Visit Provider Emergency Medicine
DX: R07.9 Chest pain, unspecified (principal); I10 Essential (primary) hypertension; R00.2 Palpitations; E03.9 Hypothyroidism, unspecified
CPT/HCPCS: 71046; 80048; 83880; 84443; 84484; 85025; 93005; 99284; J7030; A4216

== ENCOUNTER → 2023-01-12 | Outpatient (CLI) | payer OTHER, SELFPAY ==
[2023-01-12 13:15] LABS: Anion Gap 7 (5-15); BUN 12 mg/dL (7-18); BUN/Creat Ratio 17.9 RATIO (10-20); Chloride 105 mmol/L (98-107); Creatinine, Serum 0.67 mg/dL (0.55-1.02); EST Glomerular Filtration Rate 96 mL/min (>60); Est Glom Filt Rate - Afr Amer 116 mL/min (>60); Glucose 98 mg/dL (74-106); Potassium 3.5 mmol/L (3.5-5.1); Sodium Level 142 mmol/L (136-145)
== END | disposition home or self-care (01) ==
LOC: MFPLAB 10:36
PROVIDERS: PCP Family Medicine; Visit Provider Family Medicine
DX: I10 Essential (primary) hypertension (principal)
CPT/HCPCS: 36415; 80048

== ENCOUNTER → 2023-04-04 | Outpatient (CLI) | payer OTHER, SELFPAY ==
[2023-04-04 12:21] LABS: AST(SGOT) 17 U/L (15-37); Alanine Aminotransfer ALT/SGPT 23 U/L (13-56); Albumin, Serum 3.7 g/dL (3.2-5.0); Alkaline Phosphatase 107 U/L (45-117); Anion Gap 5 (5-15); BUN 12 mg/dL (7-18); BUN/Creat Ratio 16.8 RATIO (10-20); Bilirubin, Direct 0.17 mg/dL (0.00-0.30); Calcium,Total 9.2 mg/dL (8.5-10.1); Chloride 106 mmol/L (98-107); Cholesterol 150 mg/dL (200); Creatinine, Serum 0.71 mg/dL (0.55-1.02); EST Glomerular Filtration Rate 89 mL/min (>60); Est Glom Filt Rate - Afr Amer 108 mL/min (>60); Globulin 4.4 g/dL (2.2-4.2); Glucose 88 mg/dL (74-106); High Density Lipoprotein 64 mg/dL; Magnesium 2.3 mg/dL (1.6-2.6); Potassium 3.4 mmol/L (3.5-5.1); Protein, Total 8.1 g/dL (6.4-8.2); Sodium Level 139 mmol/L (136-145); Thyroid Stim Hormone (TSH) 5.44 uIU/mL (0.358-3.74); Triglycerides 54 mg/dL; Very Low Density Lipoprotein 11 mg/dL (5-40)
[2023-04-19 15:09] LABS: Aldosterone, Serum 23.1 ng/dL (0.0-30.0); Renin, Plasma 5.972 ng/mL/hr (0.167-5.380)
== END | disposition home or self-care (01) ==
LOC: LAB 10:59
PROVIDERS: PCP Family Medicine; Referring Provider Internal Medicine Cardiovascular Disease; Visit Provider Internal Medicine Cardiovascular Disease
DX: I10 Essential (primary) hypertension (principal); E03.9 Hypothyroidism, unspecified; R07.9 Chest pain, unspecified
CPT/HCPCS: 36415; 80048; 80061; 80076; 82088; 83735; 84244; 84443

== ENCOUNTER → 2023-04-12 | Outpatient (CLI) | payer OTHER, SELFPAY ==
--- NOTE | 2023-04-12 14:45 | ECHOD_ITS ---
Reason For Study: TACHYCARDIA Procedure This was a 2D Doppler, Color Flow transthoracic echocardiogram. Exam performed in department. Left Ventricle Normal LV size. Left ventricular systolic function is normal. The estimated ejection fraction is 60 %. Stage 1 diastolic dysfunction. No regional wall motion abnormalities noted. Right Ventricle Normal RV size. Normal systolic function. Atria The left atrium is mildly enlarged. Normal right atrium. Mitral Valve Normal mitral valve. Tricuspid Valve Normal tricuspid valve. Mild (1+) tricuspid valve insufficiency. Pulmonary artery systolic pressure is 35 mmHg. Aortic Valve Trisinus/trileaflet aortic valve. Pulmonic Valve Normal pulmonic valve. Great Vessels Normal aortic root. The pulmonary artery is normal size. Normal inferior vena cava. Pericardium/Pleural No pericardial effusion. MMode/2D Measurements & Calculations LVIDd: 5.2 cm IVSd: 1.0 cm Ao root diam: 3.7 cm LVIDs: 3.9 cm LVPWd: 1.1 cm RVDd: 2.9 cm FS: 25.5 % LAV(MOD-bp): 78.6 ml LVAd ap4: 26.6 cm2 SV(MOD-sp4): 37.5 ml LAV(MOD-bp) Indexed: 41.6 ml/m2 LVLd ap4: 7.5 cm LAV(MOD-sp2): 66.6 ml EDV(MOD-sp4): 77.8 ml LAV(MOD-sp4): 70.2 ml EDV(sp4-el): 80.1 ml LVAs ap4: 17.7 cm2 LVLs ap4: 6.8 cm ESV(MOD-sp4): 40.3 ml ESV(sp4-el): 39.4 ml EF(MOD-sp4): 48.2 % EF(sp4-el): 50.8 % SV(sp4-el): 40.6 ml LA A4 area: 23.5 cm2 LA dimension(2D): 3.9 cm RA A4 area: 19.4 cm2 Time Measurements MV dec time: 0.18 sec Doppler Measurements & Calculations MV E max fernando: 69.3 cm/sec Lat Peak E' Fernando: 11.0 cm/sec Med Peak E' Fernando: 7.8 cm/sec MV A max fernando: 82.6 cm/sec E/E' lat: 6.3 E/E' med: 8.9 MV E/A: 0.84 MV V2 max: 85.8 cm/sec Ao V2 max: 136.0 cm/sec MV max P.0 mmHg MV dec slope: 395.7 cm/sec2 Ao max P.4 mmHg MV V2 mean: 58.9 cm/sec Ao V2 mean: 97.5 cm/sec MV mean P.5 mmHg Ao mean P.3 mmHg MV V2 VTI: 32.9 cm Ao V2 VTI: 35.6 cm AV (velocity ratio): 0.76 LV V1 max: 111.9 cm/sec MR max fernando: 600.4 cm/sec PA V2 max: 79.9 cm/sec LV V1 max P.0 mmHg MR max P.2 mmHg PA V2 mean: 60.6 cm/sec LV V1 mean P.8 mmHg MR mean fernando: 489.4 cm/sec LV V1 mean: 78.0 cm/sec MR mean P.8 mmHg LV V1 VTI: 27.1 cm MR VTI: 233.4 cm TR max fernando: 279.9 cm/sec TR max P.3 mmHg ECHO/Echo Complete Interpretation Summary Normal LV size. Left ventricular systolic function is normal. The estimated ejection fraction is 60 %. Stage 1 diastolic dysfunction. Mild (1+) tricuspid valve insufficiency. The left atrium is mildly enlarged. Ordering Physician: Momo Ambrocio Referring Physician: Momo Ambrocio Performed By: Faith Ying RCS
== END | disposition home or self-care (01) ==
LOC: CVS 14:43
PROVIDERS: PCP Family Medicine; Referring Provider Internal Medicine Cardiovascular Disease; Visit Provider Internal Medicine Cardiovascular Disease
DX: I47.1 Supraventricular tachycardia (principal)
CPT/HCPCS: 93306

== ENCOUNTER → 2023-05-21 | Outpatient (CLI) | payer OTHER, SELFPAY ==
[2023-05-21 15:29] LABS: Anion Gap 3 (5-15); BUN 15 mg/dL (7-18); BUN/Creat Ratio 18.8 RATIO (10-20); Calcium,Total 9.6 mg/dL (8.5-10.1); Chloride 107 mmol/L (98-107); EST Glomerular Filtration Rate 79 mL/min (>60); Est Glom Filt Rate - Afr Amer 95 mL/min (>60); Free T3 2.8 pg/mL (2.18-3.98); Glucose 99 mg/dL (74-106); Potassium 4.3 mmol/L (3.5-5.1); Sodium Level 137 mmol/L (136-145); Thyroid Stim Hormone (TSH) 3.29 uIU/mL (0.358-3.74)
== END | disposition home or self-care (01) ==
PROVIDERS: PCP Family Medicine; Visit Provider Family Medicine
DX: I10 Essential (primary) hypertension (principal); E03.9 Hypothyroidism, unspecified
CPT/HCPCS: 36415; 80048; 84443; 84481

== ENCOUNTER 2023-07-04 12:47 | Emergency (ER) | payer OTHER, SELFPAY ==
[2023-07-04 12:48] VITALS: BP 169/72; PULSE 77; RESP 18; TEMP 36.7; O2SAT 100; BMI 36.8
--- NOTE | 2023-07-04 13:07 | EDS_ITS ---
HPI History of Present Illness Chief Complaint: Hypertension Narrative Narrative: -year-old female presenting with tachycardia sensation. She has history of SVT and felt palpitations last night. Has no palpitations today. She states that in the past this has been a problem and when her heart rate feels like it is racing usually her potassium is low. Patient states that Dr. Ambrocio puts her on spironolactone to improve the potassium problem. Patient states that it feels like it is burning in her chest. Worse, chills, cough. She does not feel ill. She notes that her blood pressure is up today. She is currently on 10 of amlodipine. She states she was on a couple of other meds that they tried but it was making her blood pressure dropped and was making her symptomatic. [facility] Medical History Acute maxillary sinusitis, unspecified Atrial tachycardia Biliary dyskinesia Cephalgia Chest pain Chest pain Chronic cholecystitis Chronic hip pain Chronic hypokalemia Contact with and (suspected) exposure to other viral communicable diseases Essential hypertension Hypertension Hypertensive urgency Hypothyroidism Iliotibial band syndrome of left side Left knee pain Pes anserinus bursitis of left knee Post-menopausal Sciatica Sciatica, left side Screening for intestinal cancer Thyroid disease Uncontrolled hypertension Home Medications potassium chloride 20 mEq tablet,extended release(part/cryst) 40 meq PO DAILY 05/10/21 [History Last Taken 01/23/22] albuterol sulfate 90 mcg/actuation aerosol inhaler (ProAir HFA) 2 puff inhalation Q4H PRN 03/06/23 [History Last Taken Unknown] amlodipine 10 mg tablet 10 mg PO DAILY 03/06/23 [History Last Taken Unknown] cholecalciferol (vitamin D3) 50 mcg (2,000 unit) tablet 50 mcg PO DAILY 03/06/23 [History Last Taken Unknown] valacyclovir 1 gram tablet (Valtrex) 1,000 mg PO DAILY PRN 03/06/23 [History Last Taken Unknown] metoprolol succinate 50 mg tablet,extended release 24 hr (Toprol XL) 50 mg PO DAILY #60 tabs 04/11/23 [Rx Last Taken Unknown] levothyroxine 125 mcg tablet (Synthroid) 125 mcg PO DAILY 04/13/23 [History Last Taken Unknown] spironolactone 25 mg tablet 25 mg PO DAILY #90 tabs 04/19/23 [Rx Last Taken Unknown] Allergy/AdvReac Type Severity Reaction Status Date / Time ibuprofen Allergy Severe Throat Verified 07/04/23 12:48 Swelling neomycin Allergy Unknown Itching Verified 07/04/23 12:48 midazolam [From Versed] AdvReac Severe JITTERY, Verified 07/04/23 12:48 ANXIOUS, HYPER meloxicam AdvReac Mild Palpitation Verified 07/04/23 12:48 s clarithromycin [From Biaxin] AdvReac Unknown ALEGRIA, Verified 07/04/23 12:48 Diarrhea lisinopril AdvReac Unknown Cough Verified 07/04/23 12:48 losartan AdvReac Unknown Unknown Verified 07/04/23 12:48 ketorolac [From Toradol] AdvReac Other Verified 07/04/23 12:48 Family History Father Heart disease Grandfather Myocardial infarction Uncle Myocardial infarction Surgical History History of cholecystectomy History of vein stripping Hx of dilation and curettage Social History Smoking Status: Never smoker alcohol intake: current alcohol intake frequency: holidays/special occasions only substance use type: does not use ROS ROS ED Constitutional Constitutional ED: Denies chills, fever(s) or sweats Eyes Eyes: Denies blurry vision or change in vision ENT ENT ED: Denies ear pain or sore throat Cardiovascular Cardiovascular: Reports palpitations; Denies chest pain or racing heartbeat Respiratory/Chest Respiratory/Chest: Denies cough, dyspnea or sputum Gastrointestinal Gastrointestinal: Denies abdominal pain, constipation, diarrhea, nausea or vomiting Genitourinary Genitourinary ED: Denies dysuria, hematuria or urinary frequency Musculoskeletal Musculoskeletal: Denies arthralgias, myalgias or neck pain Integumentary Denies abscess, Abrasions or rash Neurologic Neurologic: Denies headache(s), paresthesias or weakness Psychiatric Psychiatric: Denies anxiety, depression, suicidal ideation or suicidal thoughts Endocrine Endocrinology: Denies polydipsia or polyuria EXAM Physical Exam Const Vital Signs: 07/04/23 12:48 07/04/23 13:10 07/04/23 13:10 Temperature 98.1 F Temperature Source Temporal Pulse Rate 77 83 Respiratory Rate 18 16 Respiratory Pattern Blood Pressure 169/72 H 163/82 H Blood Pressure Mean 104 109 Pulse Ox 100 96 96 Oxygen Delivery Method Room Air Room Air 07/04/23 13:11 Temperature Temperature Source Pulse Rate Respiratory Rate Respiratory Pattern Normal Blood Pressure Blood Pressure Mean Pulse Ox Oxygen Delivery Method Positive well nourished General Appearance ED: NAD; Negative for pallor HEENT Reports moist mucous membranes Eyes PERRL and EOMs intact bilaterally Chest Wall inspection of chest normal and palpation of chest normal Resp normal respiratory effort and clear to auscultation bilaterally Auscultation: Negative for rales, rhonchi or wheezes Cardio regular rate and regular rhythm GI normal to inspection, nondistended, normoactive bowel sounds Neuro oriented x3 and CN's II-XII intact bilaterally Sensorium / Orientation: alert Psych mental status grossly normal Skin no rashes or lesions noted General Skin Exam: Negative for jaundice or pallor MDM MDM MDM Narrative Medical decision making narrative: Presenting with palpitations. She has a history of SVT. Differential includes SVT, A-fib, sinus tachycardia, ACS, pneumonia. Considered PE however patient PERC negative. CBC was obtained to assess white blood cell count, hemoglobin, platelets and this is all normal. BMP shows normal renal function and electrolytes. Stable opponent is 6. Chest x-ray my interpretation shows no acute process. Radiology interprets this and agrees. EKG sinus rhythm with a ventricular rate of 71 bpm without sign of ischemic or ectopy on my interpretation. At this point I think the patient stable for discharge. I recommend she keep a blood pressure diary and follow-up with her primary care doctor or Dr. Ambrocio Impression: 1. Chest pain 2. Palpitations 3. Elevated blood pressure Lab Data Attestation: I reviewed the patient's lab results. Labs: Laboratory Results - last 24 hr 07/04/23 13:10 WBC 8.3 RBC 4.37 Hgb 13.0 Hct 39.7 MCV 90.8 MCH 29.7 MCHC 32.7 RDW Std Deviation 46.2 H RDW Coeff of Bisi 13.7 Plt Count 374 MPV 10.0 Immature Gran % (Auto) 0.400 Neut % (Auto) 67.6 Lymph % (Auto) 19.8 [place] % (Auto) 9.7 Eos % (Auto) 1.9 Baso % (Auto) 0.6 Absolute Neuts (auto) 5.6 Absolute Lymphs (auto) 1.65 Nucleated RBC % 0 Sodium 139 Potassium 3.8 Chloride 108 H Carbon Dioxide 26.0 Anion Gap 5 BUN 12 Creatinine 0.77 Estim Creat Clear Calc 60.83 Est GFR (MDRD) Af Amer 99 Est GFR (MDRD) Non-Af 82 BUN/Creatinine Ratio 15.6 Glucose 99 Calcium 9.5 Troponin I High Sens 6 Radiography Diagnostic Testing: Clinical Impression(s) from Imaging Studies Chest X-Ray 07/04/23 13:30 IMPRESSION: Borderline cardiomegaly. Electronically Signed: Enrique Mann MD at 13:53 EDT , Discharge Plan Triage Chief Complaint: Hypertension ED Provider: Gabo Car Dx/Rx/DC Orders Prescriptions: No Action amlodipine 10 mg tablet 10 mg PO DAILY cholecalciferol (vitamin D3) 50 mcg (2,000 unit) tablet 50 mcg PO DAILY albuterol sulfate [ProAir HFA] 90 mcg/actuation HFA aerosol inhaler 2 puff inhalation Q4H PRN valacyclovir [Valtrex] 1 gram tablet 1,000 mg PO DAILY PRN potassium chloride 20 mEq tablet,ER particles/crystals 40 meq PO DAILY Patient Comments: TAKE 2 TABLETS BY MOUTH ONCE DAILY metoprolol succinate [Toprol XL] 50 mg tablet extended release 24 hr 50 mg PO DAILY Qty: 60 3RF levothyroxine [Synthroid] 125 mcg tablet 125 mcg PO DAILY spironolactone 25 mg tablet 25 mg PO DAILY Qty: 90 3RF Primary Care Provider: Andreas Montilla Referrals: Andreas Montilla MD [Primary Care Provider] -
--- NOTE | 2023-07-04 13:07 | EKG12_ITS ---
Test Reason : HYPERTENSION Blood Pressure : / mmHG Vent. Rate : 071 BPM Atrial Rate : 071 BPM P-R Int : 188 ms QRS Dur : 086 ms QT Int : 394 ms P-R-T Axes : 025 003 027 degrees QTc Int : 428 ms Normal sinus rhythm Normal ECG Confirmed by EDUARDO JOSHI MD ([id number]), vice investigator LEONEL DAUGHERTY ([id number]) on 07/05/2023 1:12:30 PM Referred By: MELISSA Confirmed By:EDUARDO JOSHI MD
[2023-07-04 13:10] VITALS: BP 163/82; PULSE 83; RESP 16; O2SAT 96
[2023-07-04 13:23] LABS: Absolute Lymphocyte Count 1.65 X10^3/uL (0.83-4.51); Absolute Neutrophil Count 5.6 X10^3/uL (2.0-7.7); Basophil# 0.05 X10^3/uL; Basophil% 0.6 % (0-1); Eosinophil# 0.16 X10^3/uL; Eosinophils% 1.9 % (0-5); Hematocrit 39.7 % (37-47); Lymphocyte # 1.65 X10^3/ul (0.83-4.51); Lymphocyte % 19.8 % (19-41); Mean Corp Hgb Conc 32.7 g/dL (32-36); Mean Corpuscular Hgb 29.7 pg (27.0-32.0); Mean Corpuscular Volume 90.8 fL (81-99); Monocyte# 0.81 X10^3/uL; Monocyte% 9.7 % (0-10); NRBC Flagged by Analyzer 0 % (0-5); Neutrophil # 5.63 X10^3/uL (2.7-7.7); Neutrophil % 67.6 % (47-70); Platelet Count 374 K/mm3 (150-450); RBC Distribution Width CV 13.7 % (11.6-14.6); RBC Distribution Width SD 46.2 fl (35.1-43.9); Red Blood Count 4.37 M/mm3 (4.2-5.4); White Blood Count 8.3 K/mm3 (4.4-11.0)
--- NOTE | 2023-07-04 13:30 | RAD_ITS ---
STUDY: X-RAY CHEST REASON FOR EXAM: Female, 57 years old. Chest pain TECHNIQUE: Single AP portable view of the chest. COMPARISON: Comparison is made with prior study of December 28, 2022. FINDINGS: EKG electrodes are seen. The lungs are clear and expanded. There is no demonstrated pleural abnormality. There is borderline cardiomegaly. Normal mediastinum and carlyle. Normal visualized pulmonary arteries. Normal visualized aortic arch and descending thoracic aorta. There are degenerative changes of the visualized thoracic spine. Normal visualized ribs, clavicles, and shoulders. There is no demonstrated abnormality of the visualized soft tissue structures of the upper abdomen. RAD/Chest 1 View (Portable) IMPRESSION: Borderline cardiomegaly. Electronically Signed: Enrique Mann MD at 13:53 EDT ,
[2023-07-04 13:40] LABS: Anion Gap 5 (5-15); BUN 12 mg/dL (7-18); BUN/Creat Ratio 15.6 RATIO (10-20); Calcium,Total 9.5 mg/dL (8.5-10.1); Chloride 108 mmol/L (98-107); Creatinine, Serum 0.77 mg/dL (0.55-1.02); EST Glomerular Filtration Rate 82 mL/min (>60); Est Glom Filt Rate - Afr Amer 99 mL/min (>60); Estimated Creatinine Clearance 60.83 ml/min; Glucose 99 mg/dL (74-106); Potassium 3.8 mmol/L (3.5-5.1); Sodium Level 139 mmol/L (136-145); Troponin-I HS 6 pg/mL (3.0-54.0)
[2023-07-04 14:35] VITALS: BP 132/87; PULSE 71; RESP 15; O2SAT 96
== END 2023-07-04 14:35 | disposition home or self-care (01) ==
LOC: ED 14:01
PROVIDERS: Emergency Provider Student in an Organized Health Care Education/Training Program; PCP Family Medicine; Visit Provider Student in an Organized Health Care Education/Training Program
DX: R07.9 Chest pain, unspecified (principal); I10 Essential (primary) hypertension; R00.2 Palpitations; R00.0 Tachycardia, unspecified; E03.9 Hypothyroidism, unspecified; Z79.890 Hormone replacement therapy; Z79.899 Other long term (current) drug therapy
CPT/HCPCS: 71045; 80048; 84484; 85025; 93005; 99283

== ENCOUNTER → 2023-07-20 | Outpatient (CLI) | payer OTHER, SELFPAY ==
--- NOTE | 2023-07-20 16:41 | CT_ITS ---
EXAM: CT ANGIOGRAPHY ABDOMEN WITHOUT AND WITH INTRAVENOUS CONTRAST CLINICAL INDICATION: HTN-UNCONTROLLED. PRIOR CHOLECYSTECTOMY TECHNIQUE: Helically acquired angiography images of the abdomen without and with intravenous contrast. This CT exam was performed using one or more of the following dose reduction techniques: automated exposure control, adjustment of the mA and/or kV according to patient size, and/or use of iterative reconstruction technique. MIP reconstructed images were created and reviewed. CONTRAST: IV 100mL [id number] COMPARISON: Abdominal ultrasound, 10/26/2021 FINDINGS: AORTA: Mild atherosclerosis of the aorta. Normal caliber abdominal aorta. No dissection. CELIAC TRUNK AND MESENTERIC ARTERIES: No significant findings. No occlusion or significant stenosis. No dissection. RENAL ARTERIES: No significant findings. No occlusion or significant stenosis. Normal renal artery enhancement. LOWER THORAX: No significant abnormality. Lung bases are clear. No cardiomegaly. No significant pericardial effusion. LIVER: Low-attenuation throughout the liver suggesting fatty infiltration. No focal hepatic abnormality is otherwise identified. GALLBLADDER AND BILE DUCTS: Status post cholecystectomy. No intra- or extrahepatic biliary ductal dilation. PANCREAS: No significant abnormality. No focal cystic or solid mass. SPLEEN: No significant abnormality. Normal size without focal cystic or solid mass. ADRENALS: No significant abnormality. No nodules. KIDNEYS AND URETERS: Right lower pole renal cyst for which no follow-up is indicated. No hydronephrosis. STOMACH AND BOWEL: No significant abnormality. No stomach or bowel distention. No focal inflammatory change. INTRAPERITONEAL SPACE: No significant abnormality. No ascites or other fluid collection. No free air. BONES/JOINTS: No significant abnormality. No suspicious lytic or blastic abnormality. SOFT TISSUES: No significant abnormality. No discrete abdominal or pelvic wall hernia. LYMPH NODES: No enlarged lymph nodes. CT/CTA Abdomen W/WO Contrast IMPRESSION: 1. No significant renal or adrenal pathology is identified. Although this is a nonangiographic examination, no evidence of renal artery stenosis. 2. Low-attenuation throughout the liver suggesting fatty infiltration. No focal hepatic abnormality is otherwise identified. 3. Status post cholecystectomy. Electronically Signed: Paulino Erwin DO at 20:23 EDT ,
== END | disposition home or self-care (01) ==
LOC: CT 16:38
PROVIDERS: PCP Family Medicine; Visit Provider Nurse Practitioner Gerontology
DX: I10 Essential (primary) hypertension (principal)
CPT/HCPCS: 74175; Q9967; A4216

== ENCOUNTER → 2023-07-30 | Outpatient (CLI) | payer OTHER, SELFPAY ==
--- NOTE | 2023-07-30 18:13 | STRESSREP_ITS ---
Stress Test Report Exercise myocardial perfusion stress test. 58-year-old lady with a history of chest pain Stress protocol: Resting EKG demonstrates normal sinus rhythm with a rate of 76 bpm resting blood pressure is 124/84 mmHg. The patient exercised according to the regular Kenneth protocol for a total duration of 6 minutes and 7 seconds attaining a maximum heart rate of 141 bpm which was 87% of maximum predicted heart rate; the maximum workload was 7.2 metabolic equivalents. At rest there were no ST or T wave changes noted to suggest ischemia and at peak exercise upsloping ST changes only were noted which did not meet the criteria for ischemia. No clinical angina was noted the test was terminated due to the target heart rate being achieved/fatigu e. The peak blood pressure was 200/86 mmHg. Rate-pressure product was 2200. Myocardial perfusion protocol. 10.7 mCi of technetium 99m sestamibi was injected at rest. The patient exercised according to regular Kenneth protocol for total duration of 6 minutes and 7 seconds and at peak exercise 36 mCi of technetium 99m sestamibi was injected stress images were obtained stress and rest images were reconstructed in comparing the short axis vertical long and horizontal long axis. Gated images were also obtained. Perfusion SPECT analysis: Review of the stress images demonstrate normal uptake of tracer noted in all areas of the myocardium. The resting images similarly demonstrate normal uptake of tracer noted in all areas of the myocardium. No areas of reversibility are noted to suggest ischemia no previous infarct was noted. Gated SPECT analysis: The gated ejection fraction is 77%. Conclusion: Normal exercise myocardial perfusion stress test at a moderate workload Preserved ejection fraction.
== END | disposition home or self-care (01) ==
LOC: CVS 06:57
PROVIDERS: PCP Family Medicine; Referring Provider Nurse Practitioner Gerontology; Visit Provider Nurse Practitioner Gerontology
DX: I10 Essential (primary) hypertension (principal); R07.9 Chest pain, unspecified
CPT/HCPCS: 78452; 93017; A9500; A4216

== ENCOUNTER 2023-09-12 02:34 | Emergency (ER) | payer OTHER, SELFPAY ==
[2023-09-12 02:35] VITALS: BP 181/78; PULSE 77; RESP 16; TEMP 36.5; O2SAT 98; BMI 39.9
--- NOTE | 2023-09-12 02:44 | RAD_ITS ---
EXAM: XR RIGHT KNEE COMPLETE, 4 OR MORE VIEWS CLINICAL INDICATION: pain TECHNIQUE: Four or more views of the right knee. COMPARISON: No relevant prior studies available. FINDINGS: BONES/JOINTS: Slight if any suprapatellar joint effusion, there appears to be slight suprapatellar bursal fluid. Narrowing of the patellofemoral joint, especially laterally on the sunrise patella view, and small periarticular osteophytes at the superior and inferior patella. Flabella posterior to the knee. Minimal medial and lateral tibial periarticular osteophytes well-maintained medial and lateral knee joint compartments. No acute fracture. No subluxation. Normal alignment. No sclerotic or destructive changes observed. SOFT TISSUES: See above. RAD/Knee 4 or More Views IMPRESSION: Mild multi compartmental degenerative changes, especially involving the patellofemoral joint. Slight joint effusion. Electronically Signed: Lucie Patel MD at 3:41 EST ,
--- NOTE | 2023-09-12 02:45 | ED.VIS.LOWEX ---
HPI History of Present Illness Chief Complaint: Lower Extremity Injury Narrative Narrative: 58-year-old female past medical history of hypertension, states she is always had problems with pain in her knees, last saw an orthopedic surgeon years ago because she has 4 or 5 cysts in her right knee, presents with increasing pain in her right knee on the medial aspect. Its worse with weightbearing and walking. She relates history that this past weekend, approximately 4 to 5 days ago, she was going up and down a ladder. The following day today's, she gets pain with weightbearing and now any sort of pressure with standing causes her pain diffusely throughout her right knee. She denies any fall or trauma to the area. No other symptoms, no fever or chills, no chest pain or shortness of breath. [facility] Medical History (Updated 09/12/23 @ 04:08 by Khanh Smith MD) Acute maxillary sinusitis, unspecified Atrial tachycardia Biliary dyskinesia Cephalgia Chest pain Chest pain Chronic cholecystitis Chronic hip pain Chronic hypokalemia Contact with and (suspected) exposure to other viral communicable diseases Essential hypertension Hypertension Hypertensive urgency Hypothyroidism Iliotibial band syndrome of left side Left knee pain Migraines Pes anserinus bursitis of left knee Post-menopausal Sciatica Sciatica, left side Screening for intestinal cancer Thyroid disease Uncontrolled hypertension Home Medications potassium chloride 20 mEq tablet,extended release(part/cryst) 40 meq PO DAILY 05/10/21 [History Last Taken 01/23/22] albuterol sulfate 90 mcg/actuation aerosol inhaler (ProAir HFA) 2 puff inhalation Q4H PRN wheezing 03/06/23 [History Last Taken Unknown] amlodipine 10 mg tablet 10 mg PO DAILY 03/06/23 [History Last Taken Unknown] cholecalciferol (vitamin D3) 50 mcg (2,000 unit) tablet 50 mcg PO DAILY 03/06/23 [History Last Taken Unknown] valacyclovir 1 gram tablet (Valtrex) 1,000 mg PO DAILY PRN FLAIR 03/06/23 [History Last Taken Unknown] spironolactone 25 mg tablet 25 mg PO DAILY #90 tabs 04/19/23 [Rx Last Taken Unknown] levothyroxine 125 mcg tablet (Synthroid) 150 mcg PO DAILY 07/06/23 [History Last Taken Unknown] oxycodone 5 mg tablet 5 mg PO Q6H PRN pain 3 days #12 tabs 09/12/23 [Rx Last Taken Unknown] Allergy/AdvReac Type Severity Reaction Status Date / Time ibuprofen Allergy Severe Throat Verified 07/06/23 10:03 Swelling neomycin Allergy Unknown Itching Verified 07/06/23 10:03 midazolam [From Versed] AdvReac Severe JITTERY, Verified 07/06/23 10:03 ANXIOUS, HYPER meloxicam AdvReac Mild Palpitation Verified 07/06/23 10:03 s clarithromycin [From Biaxin] AdvReac Unknown ALEGRIA, Verified 07/06/23 10:03 Diarrhea lisinopril AdvReac Unknown Cough Verified 07/06/23 10:03 losartan AdvReac Unknown Unknown Verified 07/06/23 10:03 ketorolac [From Toradol] AdvReac Other Verified 07/06/23 10:03 Family History Father Heart disease Grandfather Myocardial infarction Uncle Myocardial infarction Surgical History History of cholecystectomy History of vein stripping Hx of dilation and curettage Social History Smoking Status: Never smoker alcohol intake: current alcohol intake frequency: holidays/special occasions only substance use type: does not use ROS ROS ED ROS Narrative Constitutional: No fever, no chills. HEENT: No sore throat. No neck pain. No loss of vision. No rhinorrhea. Cardiovascular: No chest pain. No palpitations. No pedal edema. Respiratory: No cough, no shortness of breath. Abdominal: No abdominal pain. No nausea. No vomiting. Genitourinary: No dysuria. No hematuria. Musculoskeletal: No myalgias. Right medial knee pain, worse with weightbearing and walking, and with flexion and extension of right knee. Neurologic: No headaches. No dizziness. No lightheadedness. Skin: No rash. No change in color. Psychiatric: No depression. No anxiety. EXAM Physical Exam Narrative Exam Narrative: Afebrile. Vital signs noted. Cute distress. HEENT: Normocephalic. Atraumatic. PERRL, EOMI. Cardiovascular: Regular rate and rhythm. No murmurs, rubs, or gallops appreciated. Respiratory: No tachypnea. Lungs clear to auscultation bilaterally. Gastrointestinal: Abdomen soft, nontender, with normoactive bowel sounds. No rebound or guarding. Neurological: Awake. Alert. Nonfocal, nonlateralizing. Skin: No rash. Normal color. No pallor. Musculoskeletal: No pedal edema. Right medial knee tenderness along medial meniscal line, flexion and extension mechanism intact. No palpable cord. EHL intact, right leg. Palpable dorsalis pedis pulse, right. Const Vital Signs: 09/12/23 02:35 Temperature 97.7 F L Temperature Source Oral Pulse Rate 77 Respiratory Rate 16 Blood Pressure 181/78 H Blood Pressure Mean 112 Pulse Ox 98 Oxygen Delivery Method Room Air MDM MDM MDM Narrative Medical decision making narrative: Differential diagnosis is medial collateral ligament strain versus internal derangement of right knee including medial meniscal cartilage tear. I have lower suspicion for DVT, but she does have pain medially. Additionally, the cyst of which she spoke could have been a Escobedo's cyst, and her pain could be from Escobedo's cyst rupture as well. I have very low suspicion for septic arthritis as the treating physical is not supportive of this diagnosis. Ultrasound is unavailable at this time. I will write her an outpatient prescription for an ultrasound to be performed tomorrow. I do not feel any laboratory work is indicated. I will obtain x-rays of the right knee and 4 views, and she was given oxycodone 5 mg orally for analgesia as she has multiple allergies to nonsteroidal anti-inflammatories. I discussed with her follow-up with [facility] that she has seen them in the past, but she states she is also seeing a spine surgeon. I reviewed her x-rays and interpreted them independently of the right knee and 4 views which shows no evidence of an acute fracture, there is a small right knee effusion indicating to me that there may be an internal derangement. I reviewed the radiology report which comments on mild multicompartmental degenerative changes especially involving the patellofemoral joint and does mention a slight joint effusion. At this point in time, upon repeat examination after oxycodone 5 mg orally here, she is feeling more relaxed. She will be placed in an [place] wrap. I feel she can be more weightbearing as tolerated. She and her state that they have crutches at home. Additionally, I did discuss with the patient and her observation for PT OT eval as she states she is having difficulty ambulating and has pain with pressure and standing, but she declined stating she would like to go home and did not want placement in rehabilitation or shelter facility. I feel she can be discharged safely home to follow-up with [facility] and/or her primary care provider. Return instructions to the emergency department were reviewed. She was written a prescription for an ultrasound of the right lower extremity which you was told she should have tomorrow. Disposition is discharged home in stable condition. History & Record Review Discussion w/independent historian: Patient Additional record(s) reviewed:: Prior ED visit Radiography Diagnostic Testing: Clinical Impression(s) from Imaging Studies Knee X-Ray 09/12/23 02:44 IMPRESSION: Mild multi compartmental degenerative changes, especially involving the patellofemoral joint. Slight joint effusion. Electronically Signed: Lucie Patel MD at 3:41 EST Reading Location ID and State: [address] [place] [address] Tel , Service support , Discharge Plan Triage Chief Complaint: Lower Extremity Injury ED Provider: Khanh Smith Dx/Rx/DC Orders Clinical Impression: Knee effusion, right, Acute pain of right knee Instructions: ED Knee Pain of Uncertain Cause, ED Knee Effusion Prescriptions: New oxycodone 5 mg tablet 5 mg PO Q6H PRN (Reason: pain) 3 Days Qty: 12 0RF No Action amlodipine 10 mg tablet 10 mg PO DAILY cholecalciferol (vitamin D3) 50 mcg (2,000 unit) tablet 50 mcg PO DAILY albuterol sulfate [ProAir HFA] 90 mcg/actuation HFA aerosol inhaler 2 puff inhalation Q4H PRN (Reason: wheezing) valacyclovir [Valtrex] 1 gram tablet 1,000 mg PO DAILY PRN (Reason: FLAIR) potassium chloride 20 mEq tablet,ER particles/crystals 40 meq PO DAILY Patient Comments: TAKE 2 TABLETS BY MOUTH ONCE DAILY spironolactone 25 mg tablet 25 mg PO DAILY Qty: 90 3RF levothyroxine [Synthroid] 125 mcg tablet 150 mcg PO DAILY Other Ambulatory Orders: Venous Duplex US, Unilateral (Stat) Facility: [facility] - Location: [facility] Ordered By: Khanh Reodica Primary Care Provider: Andreas Montilla Referrals: Ezequiel Kumar DO [Med Staff - Active Staff] - 1 Week if not improving Andreas Montilla MD [Primary Care Provider] - As soon as possible Activity Restrictions/Additional Instructions: Have the ultra sound of your right lower extremity performed tomorrow. Medication as directed. Continue ice and elevation of your right knee when possible. Follow-up with [facility] who you have seen in the past. Return with fever, redness to right knee, new or worsening symptoms. Disposition Disposition: Home, Self Care
[2023-09-12] MEDS: oxyCODONE 5 MG Tablet PO (02:54)
[2023-09-12 04:16] VITALS: BP 161/82; PULSE 81; RESP 16; O2SAT 97
== END 2023-09-12 04:28 | disposition home or self-care (01) ==
PROVIDERS: Emergency Provider Emergency Medicine; PCP Family Medicine; Visit Provider Emergency Medicine
DX: M25.461 Effusion, right knee (principal); M25.561 Pain in right knee; I10 Essential (primary) hypertension; Z79.890 Hormone replacement therapy; Z79.899 Other long term (current) drug therapy
CPT/HCPCS: 73564; 99282

== ENCOUNTER → 2023-09-12 | Outpatient (CLI) | payer OTHER, SELFPAY ==
--- NOTE | 2023-09-12 13:40 | VDLE_ITS ---
Reason For Study: RLE Pain RIGHT CFV is compressible, spontaneous, phasic, competent and demonstrates normal augmentation. FV is compressible, spontaneous, phasic, competent and demonstrates normal augmentation. POP V is compressible, spontaneous, phasic, competent and demonstrates normal augmentation. T/P Trunk is compressible. PTV is compressible. RT PerV is compressible. HX GSV stripping/ablation. Unable to obtain compressions at Mid and Dist FV due to patient intolerance. Flow visualized in color and pulsed wave doppler. Procedure This is a venous duplex using B-mode, color flow and spectral Doppler. Exam performed in department. The exam was diagnostic. VL/Venous Duplex US, Unilateral Interpretation Summary Deep veins of the right lower extremity are patent and compressible segmentally . There is no evidence of right lower extremity deep vein thrombosis. Prior saphenous stripping. Limited study Ordering Physician: Khanh Smith Referring Physician: Andreas Montilla Performed By: Xavier Piña RVT
== END | disposition home or self-care (01) ==
LOC: CVS 13:40
PROVIDERS: PCP Family Medicine; Referring Provider Emergency Medicine; Visit Provider Emergency Medicine
DX: M79.604 Pain in right leg (principal)
CPT/HCPCS: 93971

== ENCOUNTER → 2024-01-17 | Outpatient (CLI) | payer OTHER, SELFPAY ==
[2024-01-17 12:04] LABS: Absolute Lymphocyte Count 1.91 X10^3/uL (0.83-4.51); Absolute Neutrophil Count 11.9 X10^3/uL (2.0-7.7); Basophil# 0.04 X10^3/uL; Basophil% 0.3 % (0-1); Eosinophil# 0.04 X10^3/uL; Eosinophils% 0.3 % (0-5); Hematocrit 41.8 % (37-47); Hemoglobin 13.4 g/dL (12.0-15.0); Lymphocyte # 1.91 X10^3/ul (0.83-4.51); Lymphocyte % 12.4 % (19-41); Mean Corp Hgb Conc 32.1 g/dL (32-36); Mean Corpuscular Hgb 29.8 pg (27.0-32.0); Mean Corpuscular Volume 93.1 fL (81-99); Mean Platelet Vol. 9.9 fl (6.2-12.0); Monocyte# 1.47 X10^3/uL; Monocyte% 9.5 % (0-10); NRBC Flagged by Analyzer 0 % (0-5); Neutrophil # 11.93 X10^3/uL (2.7-7.7); Platelet Count 382 K/mm3 (150-450); RBC Distribution Width CV 12.8 % (11.6-14.6); Red Blood Count 4.49 M/mm3 (4.2-5.4); White Blood Count 15.5 K/mm3 (4.4-11.0)
[2024-01-17 12:31] LABS: Insulin 15.6 mU/L (2.6-37.6); Vitamin D,25 Hydroxy 50.8 ng/mL
[2024-01-17 13:10] LABS: ALB/GLOB Ratio 0.9 RATIO (0.9-2.4); AST(SGOT) 18 U/L (15-37); Alanine Aminotransfer ALT/SGPT 22 U/L (13-56); Albumin, Serum 3.7 g/dL (3.2-5.0); Alkaline Phosphatase 95 U/L (45-117); Anion Gap 6 (5-15); BUN 10 mg/dL (7-18); BUN/Creat Ratio 10.9 RATIO (10-20); Calcium,Total 9.6 mg/dL (8.5-10.1); Chloride 104 mmol/L (98-107); Cholesterol 152 mg/dL (200); Creatinine, Serum 0.92 mg/dL (0.55-1.02); EST Glomerular Filtration Rate 67 mL/min (>60); Est Glom Filt Rate - Afr Amer 81 mL/min (>60); Globulin 4.2 g/dL (2.2-4.2); Glucose 110 mg/dL (74-106); High Density Lipoprotein 57 mg/dL; Protein, Total 7.9 g/dL (6.4-8.2); Sodium Level 138 mmol/L (136-145); T4 Free Direct 1.52 ng/dL (0.76-1.46); Thyroid Stim Hormone (TSH) 1.21 uIU/mL (0.358-3.74); Triglycerides 56 mg/dL; Very Low Density Lipoprotein 11 mg/dL (5-40)
[2024-01-17 13:45] LABS: Hemoglobin A1c 5.4 % (3.8-5.6)
== END | disposition home or self-care (01) ==
LOC: LAB.FUTURE 09:24 → MTLAB 09:27
PROVIDERS: PCP Family Medicine; Referring Provider Nurse Practitioner Family; Visit Provider Nurse Practitioner Family
DX: Z13.0 Encounter for screening for diseases of the blood and blood-forming organs and certain disorders involving the immune mechanism (principal); Z13.1 Encounter for screening for diabetes mellitus; Z13.21 Encounter for screening for nutritional disorder; Z13.228 Encounter for screening for other metabolic disorders; Z13.29 Encounter for screening for other suspected endocrine disorder
CPT/HCPCS: 36415; 80053; 80061; 82306; 83036; 83525; 84439; 84443; 84481; 85025

== ENCOUNTER → 2024-01-23 | Outpatient (CLI) | payer OTHER, SELFPAY ==
--- NOTE | 2024-01-23 08:03 | EKG12_ITS ---
Test Reason : PRE-OP Blood Pressure : / mmHG Vent. Rate : 071 BPM Atrial Rate : 071 BPM P-R Int : 180 ms QRS Dur : 084 ms QT Int : 386 ms P-R-T Axes : 044 025 018 degrees QTc Int : 419 ms Normal sinus rhythm Normal ECG Confirmed by MADELYN FISCHER, EDUARDO ([id number]), commercial production editor MARCIE ACEVEDO ([id number]) on 01/23/2024 10:55:51 AM Referred By: Slim Head Confirmed By:EDUARDO JOSHI MD
--- NOTE | 2024-01-23 08:10 | CT_ITS ---
CT RIGHT LOWER EXTREMITY WITH 3-D IMAGING CLINICAL INDICATION: OA PRE OP TECHNIQUE: Axial CT images of the right lower extremity (including right hip, right knee, and right ankle) was performed without IV contrast material. Coronal and sagittal reformats were provided. RADIATION DOSAGE (If Supplied By Facility): CTDIvol = ( 19.12 ) mGy, DLP = ( 1353.86 ) mGycm COMPARISON: Right knee radiographs dated 09/12/2023. FINDINGS: Bones: There is mild degenerative arthrosis of the right hip joint. There is tricompartment degenerative arthrosis of the right knee with marginal osteophyte formation, most pronounced in the patellofemoral compartment. There is slight lateral patellar subluxation. There is a small plantar calcaneal spur. Osseous structures are intact without evidence of fracture or dislocation. No lytic or blastic osseous masses. Soft Tissues: There is a small right knee joint effusion. The deep soft tissue structures are unremarkable. The superficial soft tissues are unremarkable without evidence of edema, hematoma, or foreign body. CT/Extremity Lower without Contra IMPRESSION: Tricompartment degenerative arthrosis of the right knee, most pronounced in the patellofemoral compartment. Slight lateral patellar subluxation. Small right knee joint effusion. Electronically Signed: Lucius Bar MD at 15:37 EDT ,
== END | disposition home or self-care (01) ==
PROVIDERS: PCP Family Medicine; Referring Provider Specialist; Visit Provider Specialist
DX: Z01.818 Encounter for other preprocedural examination (principal); Z01.810 Encounter for preprocedural cardiovascular examination; M17.11 Unilateral primary osteoarthritis, right knee; M25.461 Effusion, right knee
CPT/HCPCS: 73700; 93005

== ENCOUNTER → 2024-02-11 | Outpatient (CLI) | payer OTHER, SELFPAY ==
[2024-02-11 10:04] LABS: Absolute Lymphocyte Count 2.12 X10^3/uL (0.83-4.51); Absolute Neutrophil Count 4.8 X10^3/uL (2.0-7.7); Basophil# 0.04 X10^3/uL; Basophil% 0.5 % (0-1); Eosinophil# 0.15 X10^3/uL; Eosinophils% 1.9 % (0-5); Hematocrit 40.7 % (37-47); Hemoglobin 12.8 g/dL (12.0-15.0); Lymphocyte # 2.12 X10^3/ul (0.83-4.51); Lymphocyte % 26.6 % (19-41); Mean Corp Hgb Conc 31.4 g/dL (32-36); Mean Corpuscular Hgb 29.5 pg (27.0-32.0); Mean Corpuscular Volume 93.8 fL (81-99); Mean Platelet Vol. 10.6 fl (6.2-12.0); Monocyte# 0.84 X10^3/uL; Monocyte% 10.5 % (0-10); NRBC Flagged by Analyzer 0 % (0-5); Neutrophil # 4.77 X10^3/uL (2.7-7.7); Neutrophil % 59.9 % (47-70); Platelet Count 430 K/mm3 (150-450); RBC Distribution Width SD 44.7 fl (35.1-43.9); Red Blood Count 4.34 M/mm3 (4.2-5.4)
== END | disposition home or self-care (01) ==
PROVIDERS: PCP Family Medicine; Referring Provider Physician Assistant Surgical; Visit Provider Physician Assistant Surgical
DX: Z01.818 Encounter for other preprocedural examination (principal)
CPT/HCPCS: 36415; 85025

== ENCOUNTER → 2024-03-14 | Outpatient (CLI) | payer OTHER, SELFPAY ==
--- NOTE | 2024-03-14 12:34 | VDLE_ITS ---
Reason For Study: Right leg swelling RIGHT LEFT GSV is normal. CFV is compressible, spontaneous, phasic, CFV is compressible, spontaneous, phasic, competent, and demonstrates normal competent and demonstrates normal augmentation. augmentation. FV is compressible, spontaneous, phasic, competent and demonstrates normal augmentation. POP V is compressible, spontaneous, phasic, competent and demonstrates normal augmentation. T/P Trunk is compressible. PTV is compressible. RT PerV is compressible. Procedure This is a venous duplex using B-mode, color flow and spectral Doppler. Exam performed in department. A preliminary report was called and/or faxed to [facility]. VL/Venous Duplex US, Unilateral Interpretation Summary Deep veins of the right lower extremity are patent and compressible segmentally . There is no evidence of right lower extremity deep vein thrombosis. Valvular competence yoli ears intact within the proximal deep venous system on the right . The right great saphenous vein a ppears patent and compressible segmentally. The left common femoral vein is patent and compressib le . Ordering Physician: Nasir Ambrocio Referring Physician: Andreas Montilla Performed By: Adriana Cortez RVT
== END | disposition home or self-care (01) ==
LOC: CVS 12:33
PROVIDERS: PCP Family Medicine; Referring Provider Physician Assistant Surgical; Visit Provider Physician Assistant Surgical
DX: R22.41 Localized swelling, mass and lump, right lower limb (principal)
CPT/HCPCS: 93971

== ENCOUNTER → 2024-06-16 | Outpatient (CLI) | payer OTHER, SELFPAY ==
[2024-06-16 18:06] LABS: Absolute Lymphocyte Count 2.73 X10^3/uL (0.83-4.51); Basophil# 0.04 X10^3/uL; Basophil% 0.3 % (0-1); Eosinophil# 0.13 X10^3/uL; Eosinophils% 1.1 % (0-5); Hematocrit 40.2 % (37-47); Hemoglobin 13.1 g/dL (12.0-15.0); Lymphocyte # 2.73 X10^3/ul (0.83-4.51); Lymphocyte % 22.9 % (19-41); Mean Corp Hgb Conc 32.6 g/dL (32-36); Mean Corpuscular Hgb 29.2 pg (27.0-32.0); Mean Corpuscular Volume 89.7 fL (81-99); Mean Platelet Vol. 10.5 fl (6.2-12.0); Monocyte% 8.4 % (0-10); NRBC Flagged by Analyzer 0 % (0-5); Neutrophil # 7.97 X10^3/uL (2.7-7.7); Platelet Count 411 K/mm3 (150-450); RBC Distribution Width CV 13.1 % (11.6-14.6); RBC Distribution Width SD 43.1 fl (35.1-43.9); Red Blood Count 4.48 M/mm3 (4.2-5.4); White Blood Count 11.9 K/mm3 (4.4-11.0)
[2024-06-16 18:18] LABS: Erythrocyte Sedimentation Rate 26 mm/hr (0-30)
[2024-06-16 18:45] LABS: CRP 4.99 mg/L (0.0-3.0)
== END | disposition home or self-care (01) ==
LOC: MTLAB 15:24
PROVIDERS: PCP Family Medicine; Referring Provider Physician Assistant Surgical; Visit Provider Physician Assistant Surgical
DX: M25.561 Pain in right knee (principal); Z96.651 Presence of right artificial knee joint
CPT/HCPCS: 36415; 85025; 85652; 86140

== ENCOUNTER → 2025-01-12 | Outpatient (CLI) | payer OTHER, SELFPAY ==
[2025-01-12 23:44] LABS: Free T3 3.3 pg/mL (2.18-3.98); Thyroid Stim Hormone (TSH) 0.637 uIU/mL (0.300-4.200)
[2025-01-13 00:24] LABS: ALB/GLOB Ratio 1.3 RATIO (0.9-2.4); AST(SGOT) 26 U/L (<=31); Alanine Aminotransfer ALT/SGPT 32 U/L (<=34); Albumin, Serum 4.6 g/dL (3.5-5.0); Alkaline Phosphatase 90 U/L (35-104); Anion Gap 12 (5-15); BUN 19 mg/dL (4-19); BUN/Creat Ratio 26.1 RATIO (10-20); Calcium,Total 10.3 mg/dL (7.6-11.0); Carbon Dioxide 23.9 mmol/L (21.0-32.0); Chloride 102 mmol/L (98-108); Creatinine, Serum 0.74 mg/dL (0.70-1.20); EST Glomerular Filtration Rate 93 (>60); Globulin 3.5 g/dL (2.2-4.2); Glucose 84 mg/dL (70-99); Potassium 4.3 mmol/L (3.3-5.1); Sodium Level 138 mmol/L (133-145); Total Bilirubin 0.49 mg/dL (0.00-1.30)
[2025-01-13 01:14] LABS: Cholesterol 161 mg/dL (<=200); High Density Lipoprotein 57 mg/dL; Low Density Lipoprotein Calc. 91 mg/dL; Triglycerides 63 mg/dL; Very Low Density Lipoprotein 13 mg/dL (5-40); cholesterol:hdl ratio screen 2.81
== END | disposition home or self-care (01) ==
LOC: MFPLAB 11:46
PROVIDERS: PCP Family Medicine; Referring Provider Family Medicine; Visit Provider Family Medicine
DX: I10 Essential (primary) hypertension (principal); E03.9 Hypothyroidism, unspecified
CPT/HCPCS: 36415; 80053; 80061; 84439; 84443; 84481

== ENCOUNTER → 2025-05-07 | Outpatient (CLI) | payer OTHER, SELFPAY ==
[2025-05-07 16:41] LABS: Free T3 3.3 pg/mL (2.18-3.98)
== END | disposition home or self-care (01) ==
LOC: MFPLAB 12:01
PROVIDERS: PCP Family Medicine; Referring Provider Family Medicine; Visit Provider Family Medicine
DX: E03.9 Hypothyroidism, unspecified (principal)
CPT/HCPCS: 36415; 84439; 84443; 84481

== ENCOUNTER → 2025-06-29 | Outpatient (CLI) | payer OTHER, SELFPAY ==
[2025-06-29 15:45] LABS: Free T3 3.2 pg/mL (2.18-3.98)
== END | disposition home or self-care (01) ==
LOC: MFPLAB 11:05
PROVIDERS: PCP Family Medicine; Visit Provider Family Medicine
DX: E03.9 Hypothyroidism, unspecified (principal)
CPT/HCPCS: 36415; 84439; 84443; 84481

== ENCOUNTER → 2025-10-16 | Outpatient (CLI) | payer OTHER, SELFPAY ==
--- OUTSIDE RECORDS SUMMARY | 2025-10-16 08:50 | XMS RPT_ITS | CCD ---
Author Organization [facility] Care Team Providers Care Thread Grinder Name Role Phone Dr. Andreas Montilla Primary Care Provider Dr. Andreas Montilla Referring Provider Dr. Dilan Tian Attending Provider CeDr. Dilan ramsey Other Provider Dr. Dilan Tian Referring Provider 1([facility])[phone] Andreas Montilla Primary Care Provider Dr. Andreas Montilla Referring Provider TALAT Callahan Attending Provider Darion Orta MD Primary Care Provider Dr. Andreas Montilla Primary Care Provider Dr. Andreas Montilla Referring Provider Dr. Jamie Pickering Attending Provider Dr. Momo Ambrocio Attending Provider Dr. Andreas Montilla Primary Care Provider Dr. Andreas Montilla Referring Provider Dr. Jamie Pickering Attending Provider Dr. Momo Ambrocio Attending Provider Dr. Andreas Montilla Primary Care Provider Jaylin Fonseca Attending Provider Unavailable Dr. Andreas Montilla Referring Provider TALAT Callahan Attending Provider Dr. Momo Ambrocio Attending Provider [phone] Andreas Montilla Primary Care Provider Dr. Momo Ambrocio Attending Provider [phone] Andreas Montilla Referring Provider Jeffrey HEARING STENOGRAPHER, HEARING STENOGRAPHER-C Mee Attending Provider Jeffrey HEARING STENOGRAPHER, HEARING STENOGRAPHER-C Mee Referring Provider Jeffrey HEARING STENOGRAPHER, HEARING STENOGRAPHER-C Mee Other Provider [phone] Dr. Andreas Montilla Primary Care Provider Dr. Andreas Montilla Referring Provider Jeffrey HEARING STENOGRAPHER, HEARING STENOGRAPHER-C Mee Attending Provider Jeffrey HEARING STENOGRAPHER, HEARING STENOGRAPHER-C Mee Referring Provider Jeffrey HEARING STENOGRAPHER, HEARING STENOGRAPHER-C Mee Other Provider [phone] Dr. Momo Ambrocio Attending Provider [phone] Dr. Jose Worthington Attending Provider [phone] Andreas Montilla MD Primary Care Provider Eladia, Dr. Johns Primary Care Provider Dr. Andreas Montilla Referring Provider Jeffrey HEARING STENOGRAPHER, MAKAYLA-C Mee Attending Provider Andreas Montilla MD Primary Care Provider Eladia FISCHER, Dr. Johns Primary Care Provider Eladia FISCHER, Dr. Johns Attending Provider Eladia FISCHER, Dr. Johns Referring Provider Eladia FISCHER, Dr. Johns Primary Care Provider Eladia FISCHER, Dr. Johns Attending Provider Eladia FISCHER, Dr. Johns Referring Provider Eladia, Andreas Primary Care Unavailable Montilla, Andreas Attending Unavailable Montilla, Andreas Referring Unavailable Montilla, Andreas Primary Care Unavailable Montilla, Andreas Attending Unavailable Montilla, Andreas Referring Unavailable Montilla, Andreas Primary Care Unavailable Montilla, Andreas Attending Unavailable MONTILLA, ANDREAS R Primary Care Unavailable RADHA KOVACS Referring Unavailable Allergies Allergy Classification Reported Allergen(s) Allergy Type Date of Onset Reaction(s) Facility (17 sources) Ketorolac Drug Allergy 01-24-20 22 Other [facility] Comment on above: Pt unsure if she is allergic (17 sources) meloxicam Drug Allergy 01-24-20 22 Palpitations [facility] (17 sources) Midazolam Drug Allergy 01-24-20 22 JITTERY, ANXIOUS, HYPER [facility] (2 sources) Seasonal allergy Allergy to substance 02-06-20 14 Other: See Comments [facility] (7 sources) sedation med [Other] Propensity to adverse reactions 05-11-20 06 Mental Status Change [facility] Work Phone: (13 sources) Clarithromycin Drug Allergy 04-04-20 23 ALEGRIA, Diarrhea [facility] (13 sources) Ibuprofen Drug Allergy 04-04-20 23 Throat Swelling [facility] (13 sources) Lisinopril Drug Allergy 04-04-20 23 Cough [facility] (13 sources) Losartan Drug Allergy 04-04-20 23 Unknown [facility] (13 sources) Neomycin Drug Allergy 04-04-20 23 Itching [facility] (2 sources) Penicillin; Translations: [PENICILLIN] Drug Allergy 06-10-20 Other: See Comments [facility] (1 source) Clarithromycin Drug Allergy 06-30-20 24 [facility] (1 source) Ibuprofen Drug Allergy 06-30-20 [facility] (1 source) Ketorolac Drug Allergy 06-30-20 24 [facility] (1 source) Lisinopril Drug Allergy 06-30-20 24 [facility] (1 source) Losartan Drug Allergy 06-30-20 24 [facility] (1 source) meloxicam Drug Allergy 06-30-20 24 [facility] (1 source) Midazolam Drug Allergy 06-30-20 24 [facility] (1 source) Neomycin Drug Allergy 06-30-20 [facility] Medications Current Medications Medication Drug Class(es) Dates Sig (Normalized) Sig (Original) [id number] actuat albuterol 0.09 mg/actuat metered dose inhaler (13 sources) beta2-Adrenergic Agonist Start: 03-06-2023 Albuterol Sulfate (Proair Hfa) 90 mcg/actuation HFA aerosol inhaler Active 2 NMA INHALATION Q4H as needed for wheezing March 06, 2023 12:00am Start: 03-06-2023 take 1 puff(s) by in halation every four hours Albuterol Sulfate (Proair Hfa) 90 mcg/actuation HFA aerosol inhaler Active 2 PUFF INHALATION Q4H March 06, 2023 12:00am amLODIPine 10 mg oral tablet (20 sources) Dihydropyridine Calcium Channel Jaycob Start: 03-06-2023 take 1 tablet by mouth once daily Amlodipine 10 mg tablet Active 10 mg PO DAILY March 06, 2023 12:00am Start: 07-19-2022 take 5 mg by mouth once daily Amlodipine Active 5 MG PO DAILY July 18, 2022 11:00pm Start: 09-23-2020 End: 03-06-2023 take 2 tablets by mouth once daily Amlodipine 5 mg tablet Discontinued 10 mg PO DAILY September 23, 2020 1:00am March 06, 2023 12:01pm Start: 09-23-2020 End: 03-06-2023 take 10 mg by mouth once daily Amlodipine Discontinued 10 MG PO DAILY September 23, 2020 1:00am March 06, 2023 12:01pm amlodipine besyl ate (AMLODIPINE ORAL) Take by mouth. 0 Active Comment on above: Take by mouth. Take 10 mg by mouth once daily. cholecalciferol 0.05 mg oral tablet (20 sources) Vitamin D Start: 03-06-20 take 1 tablet by mouth once daily Cholecalciferol (Vitamin D3) 50 mcg (2,000 unit) tablet Active 50 ug PO DAILY March 06, 2023 12:00am Start: 11-20-2022 End: 03-06-2023 take 1 capsule by mouth once daily Cholecalciferol (Vitamin D3) 125 mcg (5,000 unit) capsule Discontinued 125 ug PO DAILY November 20, 2022 1:00am March 06, 2023 12:02pm Start: 10-31-2020 End: 12-23-2021 take 2 capsules by mouth once daily Cholecalciferol (Vitamin D3) 2,000 UNIT capsule Discontinued 4000 U PO DAILY October 31, 2020 1:00am December 23, 2021 2:38pm Start: 10-31-2020 End: 12-23-2021 take 4000 [IU] by mouth once daily Cholecalciferol (Vitamin D3) Discontinued 4000 UNITS PO DAILY October 31, 2020 1:00am December 23, 2021 2:38pm cholecalciferol, vitamin D3, (VITAMIN D3 ORAL) (8 sources) cholecalciferol, vitamin D3, (VITAMIN D3 ORAL) Take by mouth. Active cholecalciferol, vitamin D3, (VITAMIN D3 ORAL) Take by mouth. 0 Active Comment on above: Take by mouth. levothyroxine sodium 0.125 mg oral tablet (20 sources) l-Thyroxine Start: 07-06-2023 Levothyroxine (Synthroid) 125 mcg tablet Active 150 ug PO DAILY July 06, 2023 10:16am Start: 03-06-2023 End: 07-06-2023 take 1 tablet by mouth once daily Levothyroxine (Synthroid) 125 mcg tablet Discontinued 125 ug PO DAILY April 13, 2023 12:00am July 06, 2023 10:17am Start: 09-23-2020 End: 03-06-2023 take 1 tablet by mouth once daily Levothyroxine 112 mcg tablet Discontinued 125 ug PO DAILY September 23, 2020 1:00am March 06, 2023 12:02pm once weekly double dose Start: 09-23-2020 End: 03-06-2023 take 1 dose by mouth once daily Levothyroxine Discontinued 125 MCG PO DAILY September 23, 2020 1:00am March 06, 2023 12:02pm once weekly double dose Start: 08-30-2017 End: 09-23-2020 take 1 tablet by mouth once daily Levothyroxine 100 MCG tablet Discontinued 100 ug PO DAILY August 30, 2017 1:00am September 23, 2020 10:55am levothyroxine 10 0 mcg tablet Take 150 mcg by mouth daily before breakfast. Active Comment on above: Take 100 mcg by mout h daily before breakfast. Take 150 mcg by mout h daily before breakfast. Potassium (8 sources) take 2 tablets by mouth once daily POTASSIUM ORAL Take 2 tablets by mouth once daily. Active take 2 tablets by mouth once varun ly POTASSIUM ORAL Take 2 tablets by mouth once daily. 0 Active POTASSIUM ORAL T marshal by mouth. 0 Active Comment on above: Take by mouth. Take 2 tablets by mo uth once daily. microencapsulated potassium chloride 20 meq extended release oral tablet (17 sources) Start: take 2 tablets by mouth once daily Potassium Chloride 20 mEq tablet,ER particles/crystals Active 40 meq PO DAILY May 10, 2021 12:00am Start: 05-10-2021 take 40 mEq by mouth once pepe y Potassium Chloride Active 40 MEQ PO DAILY May 10, 2021 12:00am valACYclovir 1000 mg oral tablet (13 sources) Herpesvirus Nucleoside Analog DNA Polymerase Inhibitor, Herpes Simplex Virus Nucleoside Analog DNA Polymerase Inhibitor, Herpes Zoster Virus Nucleoside Analog DNA Polymerase Inhibitor Start: 03-06-2023 Valacyclovir (Valtr ex) 1 gram tablet Active 1000 mg PO DAILY as needed for FLAIR March 06, 2023 12:00am Completed/Discontinued Medications Medication Drug Class(es) Dates Sig (Normalized) Sig (Original) acetaminophen 325 mg / HYDROcodone bitartrate 5 mg oral tablet (20 sources) Opioid Agonist Start: 01-23-2022 End: 02-02-2022 Hydrocodone-Acetami nophen 5-325 mg tablet Discontinued 1 {tbl} PO EVERY 6 HOURS as needed for pain 5 2 0 January 26, 2022 February 02, 2022 2:06pm Biliary dyskinesia Other specified diseases of gallbladder Start: 01-23-2022 End: 02-02-2022 take 1 tablet by mouth every six hours Hydrocodone-Acetaminophen Discontinued 1 TABLET PO EVERY 6 HOURS 5 2 January 26, 2022 February 02, 2022 2:06pm azithromycin 250 mg oral tablet (13 sources) Macrolide Antimicrobial Start: 03-17-2023 End: 04-04-2023 Azithromycin 250 mg tablet Discontinued 250 mg PO daily 12 March 17, 2023 12:00am April 04, 2023 10:06am 2 tablets today, then 1 tablet daily on days 2 through 11 dexamethasone 4 mg oral tablet (17 sources) Corticosteroid Start: 12-22-2021 End: 12-23-2021 take 1 tablet by mouth three times daily Dexamethasone (Decadron) 4 mg tablet Discontinued 4 mg PO THREE TIMES A DAY December 22, 2021 1:00am December 23, 2021 2:37pm hydroCHLOROthiazide 25 mg oral tablet (20 sources) Thiazide Diuretic Start: 10-18-2010 End: 12-05-2023 take 1 tablet by mouth once daily Hydrochlorothiazide 25 MG tablet Discontinued 25 mg PO DAILY August 30, 2017 1:00am September 23, 2020 11:03am Comment on above: Take one(1) tablet d aily. 24 hr metoprolol succinate 50 mg extended release oral tablet (20 sources) beta-Adrenergic Jaycob Start: 04-04-2023 End: 07-06-2023 take 1 tablet by mouth once daily Metoprolol Succinate (Toprol Xl) 50 mg tablet extended release 24 hr Discontinued 50 mg PO DAILY 60 3 April 11, 2023 10:47am July 06, 2023 10:17am oxyCODONE hydrochloride 5 mg oral tablet (8 sources) Opioid Agonist Start: 09-12-2023 End: 11-20-2023 take 1 tablet by mouth every six hours as needed for pain Oxycodone 5 mg tablet Discontinued 5 mg PO EVERY 6 HOURS as needed for pain 12 3 0 September 12, 2023 November 20, 2023 10:42am Effusion of right knee Right knee pain Effusion, right knee Pain in right knee predniSONE 10 mg oral tablet (17 sources) Start: 07-27-2021 End: 12-23-2021 take 1 tablet by mouth three times daily Prednisone 10 mg tablet Discontinued 10 mg PO THREE TIMES A DAY 21 0 July 27, 2021 12:00am December 23, 2021 2:38pm spironolactone 25 mg oral tablet (20 sources) Aldosterone Antagonist Start: 04-19-2023 End: 03-27-2025 take 1 tablet by mouth once daily Spironolactone 25 mg tablet Discontinued 25 mg PO DAILY 90 3 April 15, 2024 3:56pm March 27, 2025 8:01am Comment on above: Take by mouth. Problems Active Problems Problem Classification Problem Date Documented Da te Episodic/Chronic Biliary tract disease (20 sources) Biliary dyskinesia; Translations: [Other specified diseases of gallbladder] Episodic Cardiac dysrhythmias (20 sources) Atrial tachycardia; Translations: [Supraventricular tachycardia] 03-06-2023 Chronic Cardiac dysrhythmias (15 sources) Palpitations; Translations: [Palpitations] 12-28-2022 Episodic Essential hypertension (20 sources) Hypertensive disorder; Translations: [Essential (primary) hypertension] Onset: 01-17-2025 Chronic Fluid and electrolyte disorders (20 sources) Hypokalemia; Translations: [Hypokalemia] 11-01-2020 Episodic Headache; including migraine (17 sources) Headache; Translations: [Headache] Episodic Hypertension with complications and secondary hypertension (17 sources) Hypertensive urgency ; Translations: [Hypertensive urgency] 05-10-2021 Chronic Immunizations and screening for infectious disease (17 sources) Contact with and (suspected) exposure to other viral communicable diseases; Translations: [Contact with or suspected exposure to other viral communicable disease] Episodic Menopausal disorders (8 sources) Menorrhagia; Translations: [Excessive bleeding in the premenopausal period] Onset: 12-24-2012 12-24-2012 Chronic Nonspecific chest pain (20 sources) Chest pain; Translations: [Chest pain, unspecified] 12-28-2022 Episodic Other acquired deformities (15 sources) Spondylolisthesis; Translations: [Spondylolisthesis, lumbosacral region] 11-20-2022 Episodic Other acquired deformities (2 sources) Spondylolisthesis, lumbosacral region; Translations: [Acquired spondylolisthesis] 11-20-2022 Episodic Other connective tissue disease (8 sources) Iliotibial band friction syndrome; Translations: [Iliotibial band syndrome, left leg] 12-23-2021 Episodic Other connective tissue disease (17 sources) Pes anserinus bursitis of left knee; Translations: [Other bursitis of knee, left knee] 12-23-2021 Episodic Other connective tissue disease (9 sources) Iliotibial band friction syndrome of left knee; Translations: [Iliotibial band syndrome, left leg] 03-06-2023 Episodic Other gastrointestinal disorders (1 source) Abdominal bloating; Translations: [Abdominal distension (gaseous)] 12-05-2023 Episodic Other non-traumatic joint disorders (20 sources) Pain in left knee; Translations: [Left knee pain] 12-23-2021 Episodic Other non-traumatic joint disorders (8 sources) Effusion of right knee joint; Translations: [Effusion, right knee] 09-12-2023 Episodic Other nutritional; endocrine; and metabolic disorders (1 source) Severe obesity; Translations: [Morbid (severe) obesity due to excess calories] 01-09-2024 Chronic Other nutritional; endocrine; and metabolic disorders (1 source) History of nutritional deficiency; Translations: [Personal history of other endocrine, nutritional and metabolic disease] 01-09-2024 Episodic Other screening for suspected conditions (not mental disorders or infectious disease) (20 sources) Patient encounter status; Translations: [Encounter for screening for malignant neoplasm of intestinal tract, unspecified] Onset: 07-10-2025 Episodic Other upper respiratory infections (17 sources) Acute maxillary sinusitis; Translations: [Acute maxillary sinusitis, unspecified] 03-17-2023 Episodic Prolapse of female genital organs (1 source) Incomplete uterovaginal prolapse; Translations: [Incomplete uterovaginal prolapse] Chronic Residual codes; unclassified (9 sources) Hypersomnia; Translations: [Hypersomnia, unspecified] 07-06-2023 Chronic Residual codes; unclassified (6 sources) Hypersomnia, unspecified; Translations: [Hypersomnia, unspecified] 07-06-2023 Chronic Spondylosis; intervertebral disc disorders; other back problems (20 sources) Sciatica; Translations: [Sciatica, left side] 12-23-2021 Episodic Thyroid disorders (14 sources) Hypothyroidism; Translations: [Hypothyroidism, unspecified] Onset: 07-03-2025 03-06-2023 Chronic Past or Other Problems Problem Classification Problem Date Documented Da te Episodic/Chronic Nonmalignant breast conditions (10 sources) Hypertrophy of breast; Translations: [Hypertrophy of breast] Onset: 12-24-2012 12-24-2012 Episodic Varicose veins of lower extremity (8 sources) Varicose veins of lower extremity; Translations: [Asymptomatic varicose veins of unspecified lower extremity] Onset: 12-24-2012 12-24-2012 Episodic Results Test Name Value Interpretation Reference Range Facility [facility] SCREENING W TOMOon 07-10 [facility] SCREENING W MERRICK * * *Final Report* * * DATE OF EXAM: Jul 10 2025 2:50PM [facility] 0582 - [facility] SCREENING W MERRICK / PROCEDURE REASON: Encounter for screening mammogram for breast cancer * * * * Physician Interpretation * * * * RESULT: [address] [address] [place] [address] #[id number] - [facility] SCREENING W MERRICK HISTORY: 59 year-old patient presents for screening. Patient is asymptomatic in both breasts. Patient states no personal history of breast cancer. The patient has a family history of breast cancer. COMPARISON STUDIES: The present examination has been compared to prior imaging studies dated 10/10/2021 (mammogram), 12/08/2022 (mammogram) and 12/05/2023 (mammogram). MAMMOGRAM TECHNIQUE: The study was acquired using full field digital technology and interpreted from soft copy. Digital Breast Tomosynthesis (DBT) images were obtained and used to assist in the interpretation of this examination. MAMMOGRAM FINDINGS: There are scattered areas of fibroglandular density. No suspicious masses, calcifications or other abnormalities are seen in either breast. There are no significant interval changes. There is a biopsy marker seen in the left breast. IMPRESSION: There is no mammographic evidence of malignancy in either breast. Routine screening mammogram is recommended. Annual mammogram will be due in 1 year. BI-RADS Category 1: Negative RISK: Based on the Tyrer-Cuzick (TC) risk assessment model, this patient has a 10.7% lifetime risk of developing breast cancer, meaning they are at average risk for developing breast cancer. However, this is only an estimate based on available history provided on the patient's questionnaire. We encourage all patients to talk with their providers about these results, further recommendations for managing breast health, and appropriate supplemental screening options if the patient has dense breast tissue. Interpreting Radiologist: Lyric Mcclain M.D. Electronically signed on: 07/13/2025 Assistant Paralegal: EMMANUEL Transcribe Date/Time: Jul 10 2025 2:42P Dictated by: LYRIC MCCLAIN MD This examination was interpreted and the report reviewed and electronically signed by: LYRIC MCCLAIN MD on Jul 13 2025 8:14AM EST [id number] CN Normal [facility] Free T3on 06-29-2025 Free T3 [Mass/Vol] 3.2 pg/mL Normal 2.18-3.98 [facility] Comment on above: Performed By: #### L [id number], [id number], [id number] #### [facility] [address] [place], [address] Free [id number] By: Andreas manrique on 06-29-2025 Free T3 [Mass/Vol] 3.2 pg/mL 2.18-3.98 [facility] T4 Free Directon 06-29-2025 T4 FREE DIRECT 1.70 ng/dL High 0.76-1.46 [facility] Comment on above: Performed By: #### L [id number], L506.0400, [id number] #### [facility] [address] [place] [place], [address] T4 freeOrdered By: Andreas manrique on 06-29-2025 Free T4 [Mass/Vol] 1.70 ng/dL High 0.76-1.46 [facility] TSH DL <= 0.005 mIU/L QnOrde red By: Andreas Montilla on 06-29-2025 TSH Qn 0.646 uIU/mL 0.300-4.200 [facility] Thyroid Stim Hormone (TSH)on 06-29-2025 TSH 0.646 uIU/mL Normal 0.300-4.200 [facility] Comment on above: Performed By: #### L [id number], L506.0400, [id number] #### [facility] [address] [place], [address] Free T3on 05-07-2025 Free T3 [Mass/Vol] 3.3 pg/mL Normal 2.18-3.98 [facility] Comment on above: Performed By: #### L [id number], [id number], L506.0400 #### [facility] [address] [place], [address] Free [id number] By: Andreas manrique on 05-07-2025 Free T3 [Mass/Vol] 3.3 pg/mL 2.18-3.98 [facility] T4 Free Directon 05-07-2025 T4 FREE DIRECT 1.90 ng/dL High 0.76-1.46 [facility] Comment on above: Performed By: #### L [id number], L506.0400, [id number] #### [facility] [address] [place], [address] T4 freeOrdered By: Andreas manrique on 05-07-2025 Free T4 [Mass/Vol] 1.90 ng/dL High 0.76-1.46 [facility] TSH DL <= 0.005 mIU/L QnOrde red By: Andreas Montilla on 05-07-2025 TSH Qn 0.370 uIU/mL 0.300-4.200 [facility] Thyroid Stim Hormone (TSH)on 05-07-2025 TSH 0.370 uIU/mL Normal 0.300-4.200 [facility] Comment on above: Performed By: #### L [id number], [id number], L506.0400 #### [facility] [address] [place], [address] Comprehensive Metabolic Prof ilon 01-13-2025 Albumin [Mass/Vol] 4.6 g/dL Normal 3.5-5.0 [facility] Comment on above: Performed By: #### L [id number], [id number], L506.0400, L500.4050, L500.4100 #### [facility] [address] [place], [address] Albumin/Globulin [Mass ratio] 1.3 {ratio} Normal 0.9-2.4 [facility] Comment on above: Performed By: #### L [id number], [id number], L506.0400, L500.4050, L500.4100 #### [facility] [address] [place], [address] ALK PHOS 90 U/L Normal 35-104 [facility] Comment on above: Performed By: #### L [id number], [id number], L506.0400, L500.4050, L500.4100 #### [facility] [address] [place], [address] ALT [Catalytic activity/Vol] 32 U/L Normal <=34 [facility] Comment on above: Performed By: #### L [id number], [id number], L506.0400, L500.4050, L500.4100 #### [facility] [address] [place], [address] AST [Catalytic activity/Vol] 26 U/L Normal <=31 [facility] Comment on above: Performed By: #### L [id number], [id number], L506.0400, L500.4050, L500.4100 #### [facility] [address] [place], [address] Bilirubin [Mass/Vol] 0.49 mg/dL Normal 0.00-1.30 [facility] Comment on above: Performed By: #### L [id number], [id number], L506.0400, L500.4050, L500.4100 #### [facility] [address] [place], [address] BUN/CRE 26.1 RATIO High 10-20 [facility] Comment on above: Performed By: #### L [id number], [id number], L506.0400, L500.4050, L500.4100 #### [facility] [address] [place], [address] Calcium [Mass/Vol] 10.3 mg/dL Normal 7.6-11.0 [facility] Comment on above: Performed By: #### L [id number], [id number], L506.0400, L500.4050, L500.4100 #### [facility] [address] [place], [address] Chloride [Moles/Vol] 102 mmol/L Normal 98-108 [facility] Comment on above: Performed By: #### L [id number], [id number], L506.0400, L500.4050, L500.4100 #### [facility] [address] [place], [address] CO2 [Moles/Vol] 23.9 mmol/L Normal 21.0-32.0 [facility] Comment on above: Performed By: #### L [id number], [id number], L506.0400, L500.4050, L500.4100 #### [facility] [address] [place], [address] Creatinine [Mass/Vol] 0.74 mg/dL Normal 0.70-1.20 [facility] Comment on above: Performed By: #### L [id number], [id number], L506.0400, L500.4050, L500.4100 #### [facility] [address] [place], [address] GAP 12 Normal 5-15 [facility] Comment on above: Performed By: #### L [id number], [id number], L506.0400, L500.4050, L500.4100 #### [facility] [address] [place], [address] GFR/1.73 sq M.predicted among non-blacks MDRD (S/P/Bld) [Vol rate/Area] 93 mL/min/{1.73_m2} Normal >60 [facility] Comment on above: Result Comment: mL/m in/1.73m2 CKD-EPI Creatinine Equation (2020) Performed By: #### L [id number], [id number], L506.0400, L500.4050, L500.4100 #### [facility] [address] [place], [address] Globulin (S) [Mass/Vol] 3.5 g/dL Normal 2.2-4.2 [facility] Comment on above: Performed By: #### L [id number], [id number], L506.0400, L500.4050, L500.4100 #### [facility] [address] [place], [address] Glucose [Mass/Vol] 84 mg/dL Normal 70-99 [facility] Comment on above: Performed By: #### L [id number], [id number], L506.0400, L500.4050, L500.4100 #### [facility] [address] [place], [address] Potassium [Moles/Vol] 4.3 mmol/L Normal 3.3-5.1 [facility] Comment on above: Performed By: #### L [id number], [id number], L506.0400, L500.4050, L500.4100 #### [facility] [address] [place], [address] Sodium [Moles/Vol] 138 mmol/L Normal 133-145 [facility] Comment on above: Performed By: #### L [id number], [id number], L506.0400, L500.4050, L500.4100 #### [facility] [address] [place], [address] T PROT 8.0 g/dL Normal 5.9-8.4 [facility] Comment on above: Performed By: #### L [id number], [id number], L506.0400, L500.4050, L500.4100 #### [facility] [address] [place], [address] Urea nitrogen [Mass/Vol] 19 mg/dL Normal 4-19 [facility] Comment on above: Performed By: #### L [id number], L501.27703, L506.0400, L500.4050, L500.4100 #### [facility] [address] [place], [address] Lipid Profileon 01-13-2025 CHOL:HDL 2.81 Normal [facility] Comment on above: Performed By: #### L [id number], L501.63198, L506.0400, L500.4050, L500.4100 #### [facility] [address] [place], [address] Cholesterol [Mass/Vol] 161 mg/dL Normal <=200 [facility] Comment on above: Result Comment: Chol esterol level, Desirable <200 mg/dL Borderline high cholesterol 200-239 mg/dL High cholesterol >=240 mg/dL Recommendations of the NCEP Adult Treatment Panel for the following risk-cutoff thresholds for the [place] population. Performed By: #### L [id number], L501.90943, L506.0400, L500.4050, L500.4100 #### [facility] [address] [place], [address] Cholesterol in HDL [Mass/Vol] 57 mg/dL Normal [facility] Comment on above: Result Comment: [place] onal Cholesterol Education Program (NCEP) guidelines: <40 mg/dL: Low HDL-cholesterol (major risk factor for CHD) >= 60 mg/dL: High HDL-cholesterol (negative risk factor for CHD) HDL-cholesterol is affected by a number of factors, e.g. smoking, exercise, hormones, sex and age. Performed By: #### L [id number], L501.91091, L506.0400, L500.4050, L500.4100 #### [facility] [address] [place], [address] Cholesterol in LDL [Mass/Vol] 91 mg/dL Normal [facility] Comment on above: Result Comment: Bord yqfonj=552-237 mg/dL Higher Ecot=613 mg/dL or greater Performed By: #### L [id number], L501.73189, L506.0400, L500.4050, L500.4100 #### [facility] [address] [place], [address] Cholesterol in VLDL [Mass/Vol] 13 mg/dL Normal - [facility] Comment on above: Performed By: #### L [id number], L501.75992, L506.0400, L500.4050, L500.4100 #### [facility] [address] [place], [address] Triglyceride [Mass/Vol] 63 mg/dL Normal [facility] Comment on above: Result Comment: The drugs N-Acetylcysteine and Metamizole may falsely depress this assay. Normal range: <150 mg/dL Borderline High: 150-199 mg/dL High: 200-499 mg/dL Very High: >500 mg/dL Performed By: #### L [id number], L501.61194, L506.0400, L500.4050, L500.4100 #### [facility] [address] [place], [address] Anion gap in Serum or Plasma Ordered By: Andreas Montilla on 01-12-2025 Anion gap [Moles/Vol] 12 mmol/L 03-05 [facility] BUN/creatinine ratioOrdered By: Andreas Montilla on 01-12-2025 Urea nitrogen/Creatinine [Mass ratio] 26.1 mg/mg High - [facility] Bilirubin, totalOrdered By: Andreas Montilla on 01-12-2025 Bilirubin [Mass/Vol] 0.49 mg/dL 0.00-1.30 [facility] Calculated very low density lipoprotein (VLDL) cholesterol measurementOrdered By: Andreas Montilla on 01-12-2025 Calculated very low density lipoprotein (VLDL) cholesterol measurement 13 mg/dL [facility] VLDL Cholesterol 13 mg/dL [facility] Carbon dioxide, total [Moles /volume] in Central venous bloodOrdered By: Andreas Montilla on 01-12-2025 CO2 [Moles/Vol] 23.9 mmol/L 21.0-32.0 [facility] Chloride assayOrdered By: Talat Montilla on 01-12-2025 Chloride [Moles/Vol] 102 mmol/L 98-108 [facility] Free T3on 01-12-2025 Free T3 [Mass/Vol] 3.3 pg/mL Normal 2.18-3.98 [facility] Comment on above: Performed By: #### L [id number], L501.91571, L506.0400, L500.4050, L500.4100 #### [facility] [address] [place], [address] Free M9Nrscvem By: Andreas manrique on 01-12-2025 Free T3 [Mass/Vol] 3.3 pg/mL 2.18-3.98 [facility] Free Triiodothyronine (T3) pg/dL 3.3 pg/mL 2.18-3.98 [facility] GFR/1.73 sq M.predicted vahe g non-blacks MDRD (S/P/Bld) [Vol rate/Area]Ordered By: Andreas Montilla on 01-12-2025 Estimated GFR (MDRD) Non-Af Amer 93 >60 [facility] Comment on above: mL/min/1.73m2 CKD-EP I Creatinine Equation (2020) Glomerular filtration rate ( GFR) estimation/1.73 sq m using serum, plasma, or whole bOrdered By: Andreas Montilla on 01-12-2025 GFR/1.73 sq M.predicted among non-blacks MDRD (S/P/Bld) [Vol rate/Area] 93 mL/min/{1.73_m2} >60 [facility] Comment on above: mL/min/1.73m2 CKD-EP I Creatinine Equation (2020) LDL calc ser/plasOrdered By: Andreas Montilla on 01-12-2025 Cholesterol in LDL [Mass/Vol] 91 mg/dL [facility] Comment on above: Agrxfulcgb=973-206 m g/dL & Higher Yaqu=882 mg/dL or greater LDL Cholesterol, Calculated 91 mg/dL [facility] Comment on above: Bioeypygpy=633-758 m g/dL & Higher Uzwb=184 mg/dL or greater Laboratory - Chemistry and C hemistry - challengeOrdered By: Andreas Montilla on 01-12-2025 AST [Catalytic activity/Vol] 26 U/L <32 [facility] Potassium (Unsp spec) [Mass/ Vol]Ordered By: Andreas Montilla on 01-12-2025 Potassium [Moles/Vol] 4.3 mmol/L 3.3-5.1 [facility] Potassium measurement (mass/ volume)Ordered By: Andreas Montilla on 01-12-2025 Potassium (Unsp spec) [Mass/Vol] 4.3 mmol/L 3.3-5.1 [facility] Screening total cholesterol/ high density lipoprotein (HDL) cholesterol ratioOrdered By: Andreas Montilla on 01-12-2025 Cholesterol.total/Rachel sterol in HDL [Mass ratio] 2.81 {ratio} [facility] Serum creatinine measurement (mass/volume)Ordered By: Andreas Montilla on 01-12-2025 Creatinine [Mass/Vol] 0.74 mg/dL 0.70-1.20 [facility] Serum globulin measurementOr dered By: Andreas Montilla on 01-12-2025 Globulin (S) [Mass/Vol] 3.5 g/dL 2.2-4.2 [facility] Serum glucose measurement (m ass/volume)Ordered By: Andreas Montilla on 01-12-2025 Glucose [Mass/Vol] 84 mg/dL 70-99 [facility] Serum or plasma alanine ragsdale otransferase (ALT) measurementOrdered By: Andreas Montilla on 01-12-2025 ALT [Catalytic activity/Vol] 32 U/L <35 [facility] Serum or plasma albumin madhuri urement (mass/volume)Ordered By: Andreas Montilla on 01-12-2025 Albumin [Mass/Vol] 4.6 g/dL 3.5-5.0 [facility] Serum or plasma albumin/glob ulin mass ratioOrdered By: Andreas Montilla on 01-12-2025 Albumin/Globulin [Mass ratio] 1.3 {ratio} 0.9-2.4 [facility] Serum or plasma alkaline velma sphatase measurementOrdered By: Andreas Montilla on 01-12-2025 ALP [Catalytic activity/Vol] 90 U/L 35-104 [facility] Serum or plasma calcium madhuri urement (mass/volume)Ordered By: Andreas Montilla on 01-12-2025 Calcium [Mass/Vol] 10.3 mg/dL 7.6-11.0 [facility] Serum or plasma cholesterol in HDL measurement (mass/volume)Ordered By: Andreas Montilla on 01-12-2025 Cholesterol in HDL [Mass/Vol] 57 mg/dL >40 [facility] Comment on above: National Cholesterol Education Program (NCEP) guidelines:<40 mg/dL: Low HDL-cholesterol (major risk factor for CHD)>= 60 mg/dL: High HDL-cholesterol (negative risk factor for CHD)HDL-cholesterol is affected by a number of factors, e.g. smoking, exercise, hormones, sex and age. Serum or plasma cholesterol measurement (mass/volume)Ordered By: Andreas Montilla on 01-12-2025 Cholesterol [Mass/Vol] 161 mg/dL <201 [facility] Comment on above: Cholesterol level, D esirable <200 mg/dLBorderline high cholesterol 200-239 mg/dLHigh cholesterol >=240 mg/dLRecommendations of the NCEP Adult Treatment Panel for the following risk-cutoff thresholds for the [place] population. Serum or plasma urea nitroge n measurement (mass/volume)Ordered By: Andreas Montilla on 01-12-2025 Urea nitrogen [Mass/Vol] 19 mg/dL 4-19 [facility] Sodium levelOrdered By: Andreas Montilla on 01-12-2025 Sodium [Moles/Vol] 138 mmol/L 133-145 [facility] T4 Free Directon 01-12-2025 T4 FREE DIRECT 1.90 ng/dL High 0.76-1.46 [facility] Comment on above: Performed By: #### L [id number], L501.53135, L506.0400, L500.4050, L500.4100 #### [facility] [address] [place], [place], [id number] T4 freeOrdered By: Andreas manrique on 01-12-2025 Free T4 [Mass/Vol] 1.90 ng/dL High 0.76-1.46 [facility] TSH DL <= 0.005 mIU/L QnOrde red By: Andreas Montilla on 01-12-2025 Thyroid Stimulating Hormone (TSH) 0.637 uIU/mL 0.300-4.200 [facility] TSH Qn 0.637 uIU/mL 0.300-4.200 [facility] Thyroid Stim Hormone (TSH)on 01-12-2025 TSH 0.637 uIU/mL Normal 0.300-4.200 [facility] Comment on above: Performed By: #### L [id number], L501.49455, L506.0400, L500.4050, L500.4100 #### [facility] [address] [place], [address] Total proteinOrdered By: Tonia Montilla on 01-12-2025 Protein [Mass/Vol] 8.0 g/dL 5.9-8.4 [facility] Triglycerides measurementOrd ered By: Andreas Montilla on 01-12-2025 Triglyceride [Mass/Vol] 63 mg/dL <199 [facility] Comment on above: The drugs N-Acetylcy steine and Metamizole may falsely depress this assay. Normal range: <150 mg/dLBorderline High: 150-199 mg/dLHigh: 200-499 mg/dLVery High: >500 mg/dL Absolute lymphocyte countOrd ered By: Nasir Ambrocio on 02-11-2024 Lymphocytes Auto (Unsp spec) [#/Vol] 2.12 10*3/uL 0.83-4.51 [facility] Automated lymphocyte count a s percentage of total leukocytesOrdered By: Nasir Ambrocio on 02-11-2024 Lymphocytes/100 WBC Auto (Unsp spec) 26.6 % 19-41 [facility] Basophil percentageOrdered B y: Nasir Ambrocio on 02-11-2024 Basophils/100 WBC (Bld) 0.5 % 0-1 [facility] Eosinophils/100 WBC (Bld) 1.9 % 0-5 [facility] Hemoglobin (Bld) [Mass/Vol] 12.8 g/dL 12.0-15.0 [facility] Monocytes/100 WBC (Bld) 10.5 % 0-10 [facility] Neutrophils (Bld) [#/Vol] 4.8 10*3/uL 2.0-7.7 [facility] Neutrophils/100 WBC (Bld) 59.9 % 47-70 [facility] WBC (Bld) [#/Vol] 8.0 10*3/uL 4.4-11.0 [facility] Determination of erythrocyte mean corpuscular volume (MCV)Ordered By: Nasir Ambrocio on 02-11-2024 MCV (RBC) [Entitic vol] 93.8 fL 81-99 [facility] Erythrocyte distribution wid th ratioOrdered By: Nasir Ambrocio on 02-11-2024 Erythrocyte distribution width (RBC) [Ratio] 13.0 % 11.6-14.6 [facility] Erythrocyte distribution wid th standard deviationOrdered By: Nasir Ambrocio on 02-11-2024 Erythrocyte distribution width (RBC) [Entitic vol] 44.7 fL 35.1-43.9 [facility] Hematocrit Auto (Bld) [Volum e fraction]Ordered By: Nasir Ambrocio on 02-11-2024 Hematocrit (Bld) [Volume fraction] 40.7 % 37-47 [facility] Immature granulocytes/100 WB C Auto (Bld)Ordered By: Nasir Ambrocio on 02-11-2024 Immature granulocytes/100 WBC (Bld) 0.600 % 0.0-0.9 [facility] Comment on above: IG% - Immature Granu locytes (promyelocytes, myelocytes and metamyelocytes) > 1% indicates that a LEFT SHIFT is Present. Laboratory - Hematology and Cell countsOrdered By: Nasir Ambrocio on 02-11-2024 MCH (RBC) [Entitic mass] 29.5 pg 27.0-32.0 [facility] MCHC (RBC) [Mass/Vol] 31.4 g/dL 32-36 [facility] Nucleated RBC/100 WBC (Bld) [Ratio] 0 % 0-5 [facility] Platelet mean volume (Bld) [Entitic vol] 10.6 fL 6.2-12.0 [facility] Platelets (Bld) [#/Vol] 430 10*3/uL 150-450 [facility] RBC Auto (Bld) [#/Vol]Ordere d By: Nasir Ambrocio on 02-11-2024 RBC (Bld) [#/Vol] 4.34 10*6/uL 4.2-5.4 [facility] Absolute lymphocyte countOrd ered By: Andreas Montilla on 01-17-2024 Lymphocytes Auto (Unsp spec) [#/Vol] 1.91 10*3/uL 0.83-4.51 [facility] Automated lymphocyte count a s percentage of total leukocytesOrdered By: Andreas Montilla on 01-17-2024 Lymphocytes/100 WBC Auto (Unsp spec) 12.4 % 19-41 [facility] Basophil percentageOrdered B y: Andreas Montilla on 01-17-2024 Basophils/100 WBC (Bld) 0.3 % 0-1 [facility] Eosinophils/100 WBC (Bld) 0.3 % 0-5 [facility] Hemoglobin (Bld) [Mass/Vol] 13.4 g/dL 12.0-15.0 [facility] Monocytes/100 WBC (Bld) 9.5 % 0-10 [facility] Neutrophils (Bld) [#/Vol] 11.9 10*3/uL 2.0-7.7 [facility] Neutrophils/100 WBC (Bld) 77.0 % 47-70 [facility] WBC (Bld) [#/Vol] 15.5 10*3/uL 4.4-11.0 [facility] Bilirubin [Mass/Vol] 0.70 mg/dL 0.20-1.00 [facility] Comment on above: For patients on eltr ombopag therapy, use of Dimension [place] TBIL is not recommended. Chloride [Moles/Vol] 104 mmol/L 98-107 [facility] Cholesterol [Mass/Vol] 152 mg/dL <200 [facility] Comment on above: <200 mg/dL Desirable 200-240 mg/dL Borderline >240 mg/dL High Risk Glucose [Mass/Vol] 110 mg/dL 74-106 [facility] Comment on above: Fasting Glucose resu lt from 100 to 125 mg/dL suggests IMPAIRED HOMEOSTASIS per A.D.A. criteria. Potassium [Moles/Vol] 4.0 mmol/L 3.5-5.1 [facility] Protein [Mass/Vol] 7.9 g/dL 6.4-8.2 [facility] Sodium [Moles/Vol] 138 mmol/L 136-145 [facility] Triglyceride [Mass/Vol] 56 mg/dL <199 [facility] Comment on above: The drugs N-Acetylcy steine and Metamizole may falsely depress this assay.Serum Triglycerides Reference Interval Normal <150 mg/dL Borderline high 150 - 199 mg/dL High 200 - 499 mg/dL Very High > or = 500 mg/dL Determination of erythrocyte mean corpuscular volume (MCV)Ordered By: Andreas Montilla on 01-17-2024 MCV (RBC) [Entitic vol] 93.1 fL 81-99 [facility] Erythrocyte distribution wid th ratioOrdered By: Andreas Montilla on 01-17-2024 Erythrocyte distribution width (RBC) [Ratio] 12.8 % 11.6-14.6 [facility] Erythrocyte distribution wid th standard deviationOrdered By: Andreas Montilla on 01-17-2024 Erythrocyte distribution width (RBC) [Entitic vol] 44.0 fL 35.1-43.9 [facility] Hematocrit Auto (Bld) [Volum e fraction]Ordered By: Andreas Montilla on 01-17-2024 Hematocrit (Bld) [Volume fraction] 41.8 % 37-47 [facility] Immature granulocytes/100 WB C Auto (Bld)Ordered By: Andreas Montilla on 01-17-2024 Immature granulocytes/100 WBC (Bld) 0.500 % 0.0-0.9 [facility] Comment on above: IG% - Immature Granu locytes (promyelocytes, myelocytes and metamyelocytes) > 1% indicates that a LEFT SHIFT is Present. Laboratory - Chemistry and C hemistry - challengeOrdered By: Andreas Montilla on 01-17-2024 Albumin/Globulin [Mass ratio] 0.9 {ratio} 0.9-2.4 [facility] ALP [Catalytic activity/Vol] 95 U/L 45-117 [facility] ALT [Catalytic activity/Vol] 22 U/L 13-56 [facility] Cholesterol in HDL [Mass/Vol] 57 mg/dL >40 [facility] Comment on above: The drugs N-Acetylcy steine and Metamizole may falsely depress this assay. Reference Range HDL <40 mg/dL Low HDL Cholesterol HDL >or= 60 mg/dL High HDL Cholesterol Cholesterol in LDL [Mass/Vol] 84 mg/dL 0-130 [facility] CO2 [Moles/Vol] 28.0 mmol/L 21.0-32.0 [facility] Globulin (S) [Mass/Vol] 4.2 g/dL 2.2-4.2 [facility] Urea nitrogen/Creatinine [Mass ratio] 10.9 mg/mg 10-20 [facility] - Hematology and Cell countsOrdered By: Andreas Montilla on 01-17-2024 MCH (RBC) [Entitic mass] 29.8 pg 27.0-32.0 [facility] MCHC (RBC) [Mass/Vol] 32.1 g/dL 32-36 [facility] Nucleated RBC/100 WBC (Bld) [Ratio] 0 % 0-5 [facility] Platelet mean volume (Bld) [Entitic vol] 9.9 fL 6.2-12.0 [facility] Platelets (Bld) [#/Vol] 382 10*3/uL 150-450 [facility] No Panel InformationOrdered By: Andreas Montilla on 01-17-2024 Insulin Level 15.6 mU/L 2.6-37.6 [facility] Vitamin D 25-Hydroxy 50.8 ng/mL [facility] Comment on above: Vitamin D 25(OH) Sta tus Range Deficiency <20 ng/mL (50nmol/L) Insufficiency 20 - 30 ng/mL (50 - 75 nmol/L) Sufficiency 30 - 100 ng/mL (75 - 250 nmol/L) Toxicity >100 ng/mL (>250 nmol/L) Estimated GFR (MDRD) Amer 81 mL/min >60 [facility] Comment on above: GFR Calc Estimated GFR (MDRD) Non-Af Amer 67 mL/min >60 [facility] Comment on above: Non- GFR Calc Free Triiodothyronine (T3) pg/dL 2.0 pg/mL 2.18-3.98 [facility] VLDL Cholesterol 11 mg/dL 5-40 [facility] RBC Auto (Bld) [#/Vol]Ordere d By: Andreas Montilla on 01-17-2024 RBC (Bld) [#/Vol] 4.49 10*6/uL 4.2-5.4 [facility] Serum or plasma calcium madhuri urement (mass/volume)Ordered By: Andreas Montilla on 01-17-2024 Calcium [Mass/Vol] 9.6 mg/dL 8.5-10.1 [facility] Serum or plasma creatinine m easurement (mass/volume)Ordered By: Andreas Montilla on 01-17-2024 Creatinine [Mass/Vol] 0.92 mg/dL 0.55-1.02 [facility] Comment on above: The validity of the calculated GFR & GFRAA in patients over 70 years has not been determined. Clinical correlation is essential. Serum or plasma thyroid stim ulating hormone (TSH) measurement (units/volume)Ordered By: Andreas Montilla on 01-17-2024 TSH Qn 1.21 uIU/mL 0.358-3.74 [facility] Serum or plasma urea nitroge n measurement (mass/volume)Ordered By: Andreas Montilla on 01-17-2024 Urea nitrogen [Mass/Vol] 10 mg/dL 7-18 [facility] Thin prep Papanicolaou smear with manual screeningOrdered By: Andreas Montilla on 01-17-2024 Thin prep Papanicolaou smear with manual screening 3.7 g/dL 3.2-5.0 [facility] Thin prep Papanicolaou smear with manual screening 18 U/L 15-37 [facility] Thin prep Papanicolaou smear with manual screening 6 5-15 [facility] Thin prep Papanicolaou smear with manual screening 1.52 ng/dL 0.76-1.46 [facility] Whole blood hemoglobin A1c/t otal hemoglobin ratio (mass fraction)Ordered By: Andreas Montilla on 01-17-2024 HbA1c (Bld) [Mass fraction] 5.4 % 3.8-5.6 [facility] Comment on above: Normal < 5.7 % Predi abetic 5.7 - 6.4 % Diabetic >or= 6.5 % Please note range changes. DBT Breast - bilateral diagn ostic for implanton 12-05-2023 [facility] US Breast - right limitedon 12-05-2023 [facility] Pelvis transvaginalon [facility] Absolute lymphocyte countOrd ered By: Gabo Car on 07-04-2023 Lymphocytes Auto (Unsp spec) [#/Vol] 1.65 10*3/uL 0.83-4.51 [facility] Basophil percentageOrdered B y: Gabo Car on 07-04-2023 Basophils/100 WBC (Bld) 0.6 % 0-1 [facility] Chloride [Moles/Vol] 108 mmol/L 98-107 [facility] Eosinophils/100 WBC (Bld) 1.9 % 0-5 [facility] Glucose [Mass/Vol] 99 mg/dL 74-106 [facility] Neutrophils (Bld) [#/Vol] 5.6 10*3/uL 2.0-7.7 [facility] Neutrophils/100 WBC (Bld) 67.6 % 47-70 [facility] Potassium [Moles/Vol] 3.8 mmol/L 3.5-5.1 [facility] Sodium [Moles/Vol] 139 mmol/L 136-145 [facility] WBC (Bld) [#/Vol] 8.3 10*3/uL 4.4-11.0 [facility] Blood erythrocytes count (nu mber/volume)Ordered By: Gabo Car on 07-04-2023 RBC (Bld) [#/Vol] 4.37 10*6/uL 4.2-5.4 [facility] Blood hemoglobin measurement (mass/volume)Ordered By: Gabo Car on 07-04-2023 Hemoglobin (Bld) [Mass/Vol] 13.0 g/dL 12.0-15.0 [facility] Blood lymphocytes/100 leukoc ytesOrdered By: Gabo Car on 07-04-2023 Lymphocytes/100 WBC (Bld) 19.8 % 19-41 [facility] Blood monocytes/100 leukocyt esOrdered By: Gabo Car on 07-04-2023 Monocytes/100 WBC (Bld) 9.7 % 0-10 [facility] Blood platelet mean volumeOr dered By: Gabo Car on 07-04-2023 Platelet mean volume (Bld) [Entitic vol] 10.0 fL 6.2-12.0 [facility] Determination of erythrocyte mean corpuscular volume (MCV)Ordered By: Gabo Car on 07-04-2023 MCV (RBC) [Entitic vol] 90.8 fL 81-99 [facility] Hematocrit Auto (Bld) [Volum e fraction]Ordered By: Gabo Car on 07-04-2023 Hematocrit (Bld) [Volume fraction] 39.7 % 37-47 [facility] - Chemistry and C hemistry - challengeOrdered By: Gabo Car on 07-04-2023 CO2 [Moles/Vol] 26.0 mmol/L 21.0-32.0 [facility] Urea nitrogen/Creatinine [Mass ratio] 15.6 mg/mg 10-20 [facility] - Hematology and Cell countsOrdered By: Gabo Car on 07-04-2023 Erythrocyte distribution width (RBC) [Entitic vol] 46.2 fL 35.1-43.9 [facility] Erythrocyte distribution width (RBC) [Ratio] 13.7 % 11.6-14.6 [facility] Immature granulocytes/100 WBC (Bld) 0.400 % 0.0-0.9 [facility] Comment on above: IG% - Immature Granu locytes (promyelocytes, myelocytes and metamyelocytes) > 1% indicates that a LEFT SHIFT is Present. MCH (RBC) [Entitic mass] 29.7 pg 27.0-32.0 [facility] Nucleated RBC/100 WBC (Bld) [Ratio] 0 % 0-5 [facility] MCHC Auto (RBC) [Mass/Vol]Or dered By: Gabo Car on 07-04-2023 MCHC (RBC) [Mass/Vol] 32.7 g/dL 32-36 [facility] No Panel InformationOrdered By: Gabo Car on 07-04-2023 Estimated Creatinine Clearance Calc 60.83 ml/min [facility] Estimated GFR (MDRD) Amer 99 mL/min >60 [facility] Comment on above: GFR Calc Estimated GFR (MDRD) Non-Af Amer 82 mL/min >60 [facility] Comment on above: Non- GFR Calc Troponin I High Sensitivity 6 pg/mL 3.0-54.0 [facility] Comment on above: Please Note: [place] t Units and Gender Specific Reference Ranges. For more information see Policy Stat Procedure [place] High Sensitivity Troponin (TNIH) and attachments. Platelets bldOrdered By: Tima Car on 07-04-2023 Platelets (Bld) [#/Vol] 374 10*3/uL 150-450 [facility] Serum or plasma calcium madhuri urement (mass/volume)Ordered By: Gabo Car on 07-04-2023 Calcium [Mass/Vol] 9.5 mg/dL 8.5-10.1 [facility] Serum or plasma creatinine m easurement (mass/volume)Ordered By: Gabo Car on 07-04-2023 Creatinine [Mass/Vol] 0.77 mg/dL 0.55-1.02 [facility] Comment on above: The validity of the calculated GFR & GFRAA in patients over 70 years has not been determined. Clinical correlation is essential. Serum or plasma urea nitroge n measurement (mass/volume)Ordered By: Gabo Car on 07-04-2023 Urea nitrogen [Mass/Vol] 12 mg/dL 7-18 [facility] Thin prep Papanicolaou smear with manual screeningOrdered By: Gabo Car on 07-04-2023 Thin prep Papanicolaou smear with manual screening 5 5-15 [facility] Basophil percentageOrdered B y: Andreas Montilla on 05-21-2023 Chloride [Moles/Vol] 107 mmol/L 98-107 [facility] Glucose [Mass/Vol] 99 mg/dL 74-106 [facility] Potassium [Moles/Vol] 4.3 mmol/L 3.5-5.1 [facility] Sodium [Moles/Vol] 137 mmol/L 136-145 [facility] Laboratory - Chemistry and C hemistry - challengeOrdered By: Andreas Montilla on 05-21-2023 CO2 [Moles/Vol] 27.0 mmol/L 21.0-32.0 [facility] Urea nitrogen/Creatinine [Mass ratio] 18.8 mg/mg 10-20 [facility] No Panel InformationOrdered By: Andreas Montilla on 05-21-2023 Estimated GFR (MDRD) Amer 95 mL/min >60 [facility] Comment on above: GFR Calc Estimated GFR (MDRD) Non-Af Amer 79 mL/min >60 [facility] Comment on above: Non- GFR Calc Free Triiodothyronine (T3) pg/dL 2.8 pg/mL 2.18-3.98 [facility] Miscellaneous Test See comment [facility] Comment on above: TEST RESULTS LIMITSM etanephrines, Frac., Pl. FreeNormetanephrine, Pl A, 95.2 pg/mL 0.0-244.0Metanephrine, Pl A, 11.4 pg/mL 0.0-88.0CommentsA: This test was developed and its performance characteristics determined by [facility]. It has not been cleared or approved by the Food and DrugAdministration. TESTING PERFORMED AT [facility]. ORIGINAL REPORT ON FILE IN LAB CONTAINS ADDITIONAL TEST SITE INFORMATION. Thyroid Stimulating Hormone (TSH) 3.29 uIU/mL 0.358-3.74 [facility] Serum or plasma calcium madhuri urement (mass/volume)Ordered By: Andreas Montilla on 05-21-2023 Calcium [Mass/Vol] 9.6 mg/dL 8.5-10.1 [facility] Serum or plasma creatinine m easurement (mass/volume)Ordered By: Andreas Montilla on 05-21-2023 Creatinine [Mass/Vol] 0.80 mg/dL 0.55-1.02 [facility] Comment on above: The validity of the calculated GFR & GFRAA in patients over 70 years has not been determined. Clinical correlation is essential. Serum or plasma urea nitroge n measurement (mass/volume)Ordered By: Andreas Montilla on 05-21-2023 Urea nitrogen [Mass/Vol] 15 mg/dL 7-18 [facility] Thin prep Papanicolaou smear with manual screeningOrdered By: Andreas Montilla on 05-21-2023 Thin prep Papanicolaou smear with manual screening 3 5-15 [facility] Basophil percentageOrdered B y: Dr. Ambrocio on 04-04-2023 Bilirubin [Mass/Vol] 0.60 mg/dL 0.20-1.00 [facility] Comment on above: For patients on eltr ombopag therapy, use of Dimension [place] TBIL is not recommended. Chloride [Moles/Vol] 106 mmol/L 98-107 [facility] Cholesterol [Mass/Vol] 150 mg/dL <200 [facility] Comment on above: <200 mg/dL Desirable 200-240 mg/dL Borderline >240 mg/dL High Risk Glucose [Mass/Vol] 88 mg/dL 74-106 [facility] Potassium [Moles/Vol] 3.4 mmol/L 3.5-5.1 [facility] Protein [Mass/Vol] 8.1 g/dL 6.4-8.2 [facility] Sodium [Moles/Vol] 139 mmol/L 136-145 [facility] Triglyceride [Mass/Vol] 54 mg/dL <199 [facility] Comment on above: The drugs N-Acetylcy steine and Metamizole may falsely depress this assay.Serum Triglycerides Reference Interval Normal <150 mg/dL Borderline high 150 - 199 mg/dL High 200 - 499 mg/dL Very High > or = 500 mg/dL Direct bilirubinOrdered By: Dr. Ambrocio on 04-04-2023 Bilirubin.direct [Mass/Vol] 0.17 mg/dL 0.00-0.30 [facility] Laboratory - Chemistry and C hemistry - challengeOrdered By: Dr. Ambrocio on 04-04-2023 ALP [Catalytic activity/Vol] 107 U/L 45-117 [facility] ALT [Catalytic activity/Vol] 23 U/L 13-56 [facility] CO2 [Moles/Vol] 28.0 mmol/L 21.0-32.0 [facility] Globulin (S) [Mass/Vol] 4.4 g/dL 2.2-4.2 [facility] Magnesium [Mass/Vol] 2.3 mg/dL 1.6-2.6 [facility] Urea nitrogen/Creatinine [Mass ratio] 16.8 mg/mg 10-20 [facility] No Panel InformationOrdered By: Dr. Ambrocio on 04-04-2023 Estimated GFR (MDRD) Amer 108 mL/min >60 [facility] Comment on above: GFR Calc Estimated GFR (MDRD) Non-Af Amer 89 mL/min >60 [facility] Comment on above: Non- GFR Calc Thyroid Stimulating Hormone (TSH) 5.44 uIU/mL 0.358-3.74 [facility] Plasma renin measurement (en zymatic activity/volume)Ordered By: Momo Ambrocio on 04-04-2023 Renin (P) [Catalytic activity/Vol] 5.972 ng/mL/hr 0.167-5.380 [facility] Comment on above: Performed at: [employer] [address] [id number] Director: Camilla Elizabeth MD, Phone: [phone] Serum or plasma albumin madhuri urement (mass/volume)Ordered By: Dr. Ambrocio on 04-04-2023 Albumin [Mass/Vol] 3.7 g/dL 3.2-5.0 [facility] Serum or plasma calcium madhuri urement (mass/volume)Ordered By: Dr. Ambrocio on 04-04-2023 Calcium [Mass/Vol] 9.2 mg/dL 8.5-10.1 [facility] Serum or plasma cholesterol in HDL measurement (mass/volume)Ordered By: Dr. Ambrocio on 04-04-2023 Cholesterol in HDL [Mass/Vol] 64 mg/dL >40 [facility] Comment on above: The drugs N-Acetylcy steine and Metamizole may falsely depress this assay. Reference Range HDL <40 mg/dL Low HDL Cholesterol HDL >or= 60 mg/dL High HDL Cholesterol Serum or plasma cholesterol in VLDL measurement (mass/volume)Ordered By: Dr. Ambrocio on 04-04-2023 Cholesterol in VLDL [Mass/Vol] 11 mg/dL 5-40 [facility] Serum or plasma creatinine m easurement (mass/volume)Ordered By: Dr. Ambrocio on 04-04-2023 Creatinine [Mass/Vol] 0.71 mg/dL 0.55-1.02 [facility] Comment on above: The validity of the calculated GFR & GFRAA in patients over 70 years has not been determined. Clinical correlation is essential. Serum or plasma low density lipoprotein (LDL) cholesterol measurement (mass/volume)Ordered By: Dr. Ambrocio on 04-04-2023 Cholesterol in LDL [Mass/Vol] 75 mg/dL 0-130 [facility] Serum or plasma urea nitroge n measurement (mass/volume)Ordered By: Dr. Ambrocio on 04-04-2023 Urea nitrogen [Mass/Vol] 12 mg/dL 7-18 [facility] Thin prep Papanicolaou smear with manual screeningOrdered By: Dr. Ambrocio on 04-04-2023 Thin prep Papanicolaou smear with manual screening 17 U/L 15-37 [facility] Thin prep Papanicolaou smear with manual screening 5 5-15 [facility] Thin prep Papanicolaou smear with manual screeningOrdered By: Momo Ambrocio on 04-04-2023 Thin prep Papanicolaou smear with manual screening 23.1 ng/dL 0.0-30.0 [facility] Basophil percentageOrdered B y: Dr. Montilla on 01-12-2023 Chloride [Moles/Vol] 105 mmol/L 98-107 [facility] Glucose [Mass/Vol] 98 mg/dL 74-106 [facility] Potassium [Moles/Vol] 3.5 mmol/L 3.5-5.1 [facility] Sodium [Moles/Vol] 142 mmol/L 136-145 [facility] Laboratory - Chemistry and C hemistry - challengeOrdered By: Dr. Montilla on 01-12-2023 CO2 [Moles/Vol] 30.0 mmol/L 21.0-32.0 [facility] Urea nitrogen/Creatinine [Mass ratio] 17.9 mg/mg 10-20 [facility] No Panel InformationOrdered By: Dr. Montilla on 01-12-2023 Estimated GFR (MDRD) Amer 116 mL/min >60 [facility] Comment on above: GFR Calc Estimated GFR (MDRD) Non-Af Amer 96 mL/min >60 [facility] Comment on above: Non- GFR Calc Serum or plasma calcium madhuri urement (mass/volume)Ordered By: Dr. Montilla on 01-12-2023 Calcium [Mass/Vol] 10.0 mg/dL 8.5-10.1 [facility] Serum or plasma creatinine m easurement (mass/volume)Ordered By: Dr. Montilla on 01-12-2023 Creatinine [Mass/Vol] 0.67 mg/dL 0.55-1.02 [facility] Comment on above: The validity of the calculated GFR & GFRAA in patients over 70 years has not been determined. Clinical correlation is essential. Serum or plasma urea nitroge n measurement (mass/volume)Ordered By: Dr. Montilla on 01-12-2023 Urea nitrogen [Mass/Vol] 12 mg/dL 7-18 [facility] Thin prep Papanicolaou smear with manual screeningOrdered By: Dr. Montilla on 01-12-2023 Thin prep Papanicolaou smear with manual screening 7 5-15 [facility] Absolute lymphocyte countOrd ered By: Andreas Randall on 12-28-2022 Lymphocytes Auto (Unsp spec) [#/Vol] 2.17 10*3/uL 0.83-4.51 [facility] Basophil percentageOrdered B y: Andreas Randall on 12-28-2022 Basophils/100 WBC (Bld) 0.7 % 0-1 [facility] Chloride [Moles/Vol] 106 mmol/L 98-107 [facility] Eosinophils/100 WBC (Bld) 1.2 % 0-5 [facility] Glucose [Mass/Vol] 94 mg/dL 74-106 [facility] Neutrophils (Bld) [#/Vol] 6.2 10*3/uL 2.0-7.7 [facility] Neutrophils/100 WBC (Bld) 65.1 % 47-70 [facility] Potassium [Moles/Vol] 3.3 mmol/L 3.5-5.1 [facility] Sodium [Moles/Vol] 141 mmol/L 136-145 [facility] WBC (Bld) [#/Vol] 9.5 10*3/uL 4.4-11.0 [facility] Blood erythrocytes count (nu mber/volume)Ordered By: Andreas Randall on 12-28-2022 RBC (Bld) [#/Vol] 4.56 10*6/uL 4.2-5.4 [facility] Blood hemoglobin measurement (mass/volume)Ordered By: Andreas Randall on 12-28-2022 Hemoglobin (Bld) [Mass/Vol] 13.6 g/dL 12.0-15.0 [facility] Blood lymphocytes/100 leukoc ytesOrdered By: Andreas Randall on 12-28-2022 Lymphocytes/100 WBC (Bld) 22.9 % 19-41 [facility] Blood monocytes/100 leukocyt esOrdered By: Andreas Randall on 12-28-2022 Monocytes/100 WBC (Bld) 9.7 % 0-10 [facility] Blood platelet mean volumeOr dered By: Andreas Randall on 12-28-2022 Platelet mean volume (Bld) [Entitic vol] 10.2 fL 6.2-12.0 [facility] Determination of erythrocyte mean corpuscular volume (MCV)Ordered By: Andreas Randall on 12-28-2022 MCV (RBC) [Entitic vol] 91.4 fL 81-99 [facility] Hematocrit Auto (Bld) [Volum e fraction]Ordered By: Andreas Randall on 12-28-2022 Hematocrit (Bld) [Volume fraction] 41.7 % 37-47 [facility] Laboratory - Chemistry and C hemistry - challengeOrdered By: Andreas Randall on 12-28-2022 CO2 [Moles/Vol] 27.0 mmol/L 21.0-32.0 [facility] Natriuretic peptide B (Bld) [Mass/Vol] 22.1 pg/mL 0-100 [facility] Urea nitrogen/Creatinine [Mass ratio] 16.7 mg/mg 10-20 [facility] Laboratory - Hematology and Cell countsOrdered By: Andreas Randall on 12-28-2022 Erythrocyte distribution width (RBC) [Entitic vol] 45.3 fL 35.1-43.9 [facility] Erythrocyte distribution width (RBC) [Ratio] 13.5 % 11.6-14.6 [facility] Immature granulocytes/100 WBC (Bld) 0.400 % 0.0-0.9 [facility] Comment on above: IG% - Immature Granu locytes (promyelocytes, myelocytes and metamyelocytes) > 1% indicates that a LEFT SHIFT is Present. MCH (RBC) [Entitic mass] 29.8 pg 27.0-32.0 [facility] Nucleated RBC/100 WBC (Bld) [Ratio] 0 % 0-5 [facility] MCHC Auto (RBC) [Mass/Vol]Or dered By: Andreas Randall on 12-28-2022 MCHC (RBC) [Mass/Vol] 32.6 g/dL 32-36 [facility] No Panel InformationOrdered By: Andreas Randall on 12-28-2022 Estimated Creatinine Clearance Calc 70.97 ml/min [facility] Estimated GFR (MDRD) Amer 119 mL/min >60 [facility] Comment on above: GFR Calc Estimated GFR (MDRD) Non-Af Amer 98 mL/min >60 [facility] Comment on above: Non- GFR Calc Thyroid Stimulating Hormone (TSH) 3.25 uIU/mL 0.358-3.74 [facility] Troponin I High Sensitivity 8 pg/mL 3.0-54.0 [facility] Comment on above: Please Note: [place] t Units and Gender Specific Reference Ranges. For more information see Policy Stat Procedure [place] High Sensitivity Troponin (TNIH) and attachments. Platelets bldOrdered By: Tonia Randall on 12-28-2022 Platelets (Bld) [#/Vol] 385 10*3/uL 150-450 [facility] Serum or plasma calcium madhuri urement (mass/volume)Ordered By: Andreas Randall on 12-28-2022 Calcium [Mass/Vol] 9.5 mg/dL 8.5-10.1 [facility] Serum or plasma creatinine m easurement (mass/volume)Ordered By: Andreas Randall on 12-28-2022 Creatinine [Mass/Vol] 0.66 mg/dL 0.55-1.02 [facility] Comment on above: The validity of the calculated GFR & GFRAA in patients over 70 years has not been determined. Clinical correlation is essential. Serum or plasma urea nitroge n measurement (mass/volume)Ordered By: Andreas Randall on 12-28-2022 Urea nitrogen [Mass/Vol] 11 mg/dL 7-18 [facility] Thin prep Papanicolaou smear with manual screeningOrdered By: Andreas Randall on 12-28-2022 Thin prep Papanicolaou smear with manual screening 8 5-15 [facility] No Panel Informationon 07-19 POC SARS CoV-2 Antigen Negative [facility] Work Phone: Basophil percentageon 2021 Chloride [Moles/Vol] 107 mmol/L 98-107 [facility] Work Phone: Glucose [Mass/Vol] 127 mg/dL 74-106 [facility] Work Phone: Comment on above: Fasting Glucose resu lt greater than or equal to 126 mg/dL suggests DIABETES MELLITUS per A.D.A. criteria. Potassium [Moles/Vol] 3.5 mmol/L 3.5-5.1 [facility] Work Phone: Sodium [Moles/Vol] 140 mmol/L 136-145 [facility] Work Phone: WBC (Bld) [#/Vol] 9.9 10*3/uL 4.4-11.0 [facility] Work Phone: Blood erythrocytes count (nu mber/volume)on 12-29-2021 RBC (Bld) [#/Vol] 4.57 10*6/uL 4.2-5.4 [facility] Work Phone: Blood hemoglobin measurement (mass/volume)on 12-29-2021 Hemoglobin (Bld) [Mass/Vol] 13.7 g/dL 12.0-15.0 [facility] Work Phone: Blood platelet mean volumeon 12-29-2021 Platelet mean volume (Bld) [Entitic vol] 9.8 fL 6.2-12.0 [facility] Work Phone: Determination of erythrocyte mean corpuscular volume (MCV)on 12-29-2021 MCV (RBC) [Entitic vol] 91.9 fL 81-99 [facility] Work Phone: Hematocrit Auto (Bld) [Volum e fraction]on 12-29-2021 Hematocrit (Bld) [Volume fraction] 42.0 % 37-47 [facility] Work Phone: Laboratory - Chemistry and C hemistry - challengeon 12-29-2021 CO2 [Moles/Vol] 28.0 mmol/L 21.0-32.0 [facility] Work Phone: Urea nitrogen/Creatinine [Mass ratio] 14.3 mg/mg 10-20 [facility] Work Phone: Laboratory - Hematology and Cell countson 12-29-2021 Erythrocyte distribution width (RBC) [Entitic vol] 46.6 fL 35.1-43.9 [facility] Work Phone: Erythrocyte distribution width (RBC) [Ratio] 13.7 % 11.6-14.6 [facility] Work Phone: MCH (RBC) [Entitic mass] 30.0 pg 27.0-32.0 [facility] Work Phone: MCHC Auto (RBC) [Mass/Vol]on 12-29-2021 MCHC (RBC) [Mass/Vol] 32.6 g/dL 32-36 [facility] Work Phone: No Panel Informationon 12-29 Estimated GFR (MDRD) Amer 112 mL/min >60 [facility] Work Phone: Comment on above: GFR Calc Estimated GFR (MDRD) Non-Af Amer 92 mL/min >60 [facility] Work Phone: Comment on above: Non- GFR Calc Thyroid Stimulating Hormone (TSH) 2.87 uIU/mL 0.358-3.74 [facility] Work Phone: Platelets bldon 12-29-2021 Platelets (Bld) [#/Vol] 422 10*3/uL 150-450 [facility] Work Phone: Serum or plasma calcium madhuri urement (mass/volume)on 12-29-2021 Calcium [Mass/Vol] 9.5 mg/dL 8.5-10.1 [facility] Work Phone: Serum or plasma creatinine m easurement (mass/volume)on 12-29-2021 Creatinine [Mass/Vol] 0.70 mg/dL 0.55-1.02 [facility] Work Phone: Comment on above: The validity of the calculated GFR & GFRAA in patients over 70 years has not been determined. Clinical correlation is essential. Serum or plasma urea nitroge n measurement (mass/volume)on 12-29-2021 Urea nitrogen [Mass/Vol] 10 mg/dL 7-18 [facility] Work Phone: Thin prep Papanicolaou smear with manual screeningon 12-29-2021 Thin prep Papanicolaou smear with manual screening 5 5-15 [facility] Work Phone: Basophil percentageon 2021 Amylase [Catalytic activity/Vol] 33 U/L 25-115 [facility] Work Phone: Chloride [Moles/Vol] 106 mmol/L 98-107 [facility] Work Phone: Glucose [Mass/Vol] 93 mg/dL 74-106 [facility] Work Phone: Potassium [Moles/Vol] 3.4 mmol/L 3.5-5.1 [facility] Work Phone: Sodium [Moles/Vol] 140 mmol/L 136-145 [facility] Work Phone: Laboratory - Chemistry and C hemistry - challengeon 11-18-2021 CO2 [Moles/Vol] 28.0 mmol/L 21.0-32.0 [facility] Work Phone: Lipase [Catalytic activity/Vol] 53 U/L 73-393 [facility] Work Phone: Urea nitrogen/Creatinine [Mass ratio] 11.6 mg/mg 10-20 [facility] Work Phone: No Panel Informationon 11-18 Estimated GFR (MDRD) Amer 113 mL/min >60 [facility] Work Phone: Comment on above: GFR Calc Estimated GFR (MDRD) Non-Af Amer 93 mL/min >60 [facility] Work Phone: Comment on above: Non- GFR Calc Thyroid Stimulating Hormone (TSH) 3.81 uIU/mL 0.358-3.74 [facility] Work Phone: Serum or plasma calcium madhuri urement (mass/volume)on 11-18-2021 Calcium [Mass/Vol] 9.6 mg/dL 8.5-10.1 [facility] Work Phone: Serum or plasma creatinine m easurement (mass/volume)on 11-18-2021 Creatinine [Mass/Vol] 0.69 mg/dL 0.55-1.02 [facility] Work Phone: Comment on above: The validity of the calculated GFR & GFRAA in patients over 70 years has not been determined. Clinical correlation is essential. Serum or plasma urea nitroge n measurement (mass/volume)on 11-18-2021 Urea nitrogen [Mass/Vol] 8 mg/dL 7-18 [facility] Work Phone: Thin prep Papanicolaou smear with manual screeningon 11-18-2021 Thin prep Papanicolaou smear with manual screening 6 5-15 [facility] Work Phone: Vital Signs Date Time Vital Sign Value Performing Clinician Faci lity 06-10-2024 15:47-0400 Body height 153 cm Radha Kovacs MD Work Phone: [facility] 06-10-2024 15:47-0400 Body mass index (BMI) [Ratio] 37.77 kg/m2 Radha Kovacs MD Work Phone: [facility] 06-10-2024 15:47-0400 Body weight 88.45 kg Radha Kovacs MD Work Phone: [facility] 06-10-2024 15:47-0400 Diastolic blood pressure 86 mm[Hg] Radha Kovacs MD Work Phone: [facility] 06-10-2024 15:47-0400 Systolic blood pressure 138 mm[Hg] Radha Kovacs MD Work Phone: [facility] 01-09-2024 13:06-0400 Body height 156.8 cm Anna Baum APRN.NAVIGATING OFFICER Work Phone: [facility] 01-09-2024 13:06-0400 Body weight 93.44 kg Anna Baum APRN.NAVIGATING OFFICER Work Phone: [facility] 01-09-2024 13:06-0400 Diastolic blood pressure 86 mm[Hg] Anna Baum APRN.NAVIGATING OFFICER Work Phone: [facility] 01-09-2024 13:06-0400 Heart rate 80 /min Anna Baum APRN.NAVIGATING OFFICER Work Phone: [facility] 01-09-2024 13:06-0400 SaO2% (BldA) [Mass fraction] 96 % Anna Baum APRN.NAVIGATING OFFICER Work Phone: [facility] 01-09-2024 13:06-0400 Systolic blood pressure 140 mm[Hg] Anna Baum APRN.NAVIGATING OFFICER Work Phone: [facility] 11-20-2023 09:30-0500 Body height 154.[address] Andreas Montilla Work Phone: [facility] 11-20-2023 09:30-0500 Body mass index (BMI) [Ratio] 39.4 kg/m2 Dr. Andreas Montilla Work Phone: [facility] 11-20-2023 09:30-0500 Body weight 94.[address] Andreas Montilla Work Phone: [facility] 11-20-2023 09:30-0500 Diastolic blood pressure 84 mm[Hg] Dr. Andreas Montilla Work Phone: [facility] 11-20-2023 09:30-0500 Heart rate 82 /min Dr. Andreas Montilla Work Phone: [facility] 11-20-2023 09:30-0500 Respiratory rate 18 /min Dr. Andreas Montilla Work Phone: [facility] 11-20-2023 09:30-0500 SaO2% (BldA) [Mass fraction] 97 % Dr. Andreas Montilla Work Phone: [facility] 11-20-2023 09:30-0500 Systolic blood pressure 143 mm[Hg] Dr. Andreas Montilla Work Phone: [facility] 09-12-2023 04:16-0500 Diastolic blood pressure 82 mm[Hg] Dr. Andreas Montilla Work Phone: [phone] [address] 09-12-2023 04:16-0500 Heart rate 81 /min Dr. Andreas Montilla Work Phone: 3(600)[phone] [address] 09-12-2023 04:16-0500 Respiratory rate 16 /min Dr. Andreas Montilla Work Phone: [facility] 09-12-2023 04:16-0500 SaO2% (BldA) [Mass fraction] 97 % Dr. Andreas Montilla Work Phone: [phone] [address] 09-12-2023 04:16-0500 Systolic blood pressure 161 mm[Hg] Dr. Andreas Montilla Work Phone: [phone])[phone] [address] 09-12-2023 02:35-0500 Body height 154.[address] Andreas Montilla Work Phone: [facility] 09-12-2023 02:35-0500 Body mass index (BMI) [Ratio] 39.9 kg/m2 Dr. Andreas Montilla Work Phone: [facility] 09-12-2023 02:35-0500 Body temperature 97.7 [degF] Dr. Andreas Montilla Work Phone: [facility] 09-12-2023 02:35-0500 Body weight 95.[address] Andreas Montilla Work Phone: 0(138)[phone] [place] [address] 07-06-2023 10:05-0400 Body height 154.[address] Andreas Montilla Work Phone: [facility] 07-06-2023 10:05-0400 Body mass index (BMI) [Ratio] 38.9 kg/m2 Dr. Andreas Montilla Work Phone: [facility] 07-06-2023 10:05-0400 Body weight 93.[address] Andreas Montilla Work Phone: [facility] 07-06-2023 10:05-0400 Diastolic blood pressure 90 mm[Hg] Dr. Andreas Montilla Work Phone: [facility] 07-06-2023 10:05-0400 Heart rate 83 /min Dr. Andreas Montilla Work Phone: [facility] 07-06-2023 10:05-0400 Respiratory rate 18 /min Dr. Andreas Montilla Work Phone: [facility] 07-06-2023 10:05-0400 SaO2% (BldA) [Mass fraction] 97 % Dr. Andreas Montilla Work Phone: [facility] 07-06-2023 10:05-0400 Systolic blood pressure 176 mm[Hg] Dr. Andreas Montilla Work Phone: [facility] 07-04-2023 14:35-0400 Diastolic blood pressure 87 mm[Hg] Dr. Andreas Montilla Work Phone: [facility] 07-04-2023 14:35-0400 Heart rate 71 /min Dr. Andreas Montilla Work Phone: [facility] 07-04-2023 14:35-0400 Respiratory rate 15 /min Dr. Andreas Montilla Work Phone: [facility] 07-04-2023 14:35-0400 SaO2% (BldA) [Mass fraction] 96 % Dr. Andreas Montilla Work Phone: [facility] 07-04-2023 14:35-0400 Systolic blood pressure 132 mm[Hg] Dr. Andreas Montilla Work Phone: [facility] 07-04-2023 12:48-0400 Body height 154.[address] Andreas Montilla Work Phone: [facility] 07-04-2023 12:48-0400 Body mass index (BMI) [Ratio] 36.8 kg/m2 Dr. Andreas Montilla Work Phone: [facility] 07-04-2023 12:48-0400 Body temperature 98.1 [degF] Dr. Andreas Montilla Work Phone: [facility] 07-04-2023 12:48-0400 Body weight 88.[address] Andreas Montilla Work Phone: [facility] 04-04-2023 10:10-0400 Body weight 92.[address] Andreas Montilla Work Phone: [facility] 04-04-2023 10:10-0400 Diastolic blood pressure 94 mm[Hg] Dr. Andreas Montilla Work Phone: [facility] 04-04-2023 10:10-0400 Heart rate 81 /min Dr. Andreas Montilla Work Phone: [facility] 04-04-2023 10:10-0400 Respiratory rate 16 /min Dr. Andreas Montilla Work Phone: [facility] 04-04-2023 10:10-0400 Systolic blood pressure 187 mm[Hg] Dr. Andreas Montilla Work Phone: [facility] 04-04-2023 08:37-0400 Body height 154.[address] Andreas Montilla Work Phone: [facility] 03-17-2023 10:08-0400 Body mass index (BMI) [Ratio] 39.1 kg/m2 Dr. Andreas Montilla Work Phone: [facility] 03-17-2023 10:08-0400 Body temperature 98 [degF] Dr. Andreas Montilla Work Phone: [phone] [place] [address] 03-17-2023 10:08-0400 Body weight 93.[address] Andreas Montilla Work Phone: [facility] 03-17-2023 10:08-0400 Diastolic blood pressure 84 mm[Hg] Dr. Andreas Montilla Work Phone: [facility] 03-17-2023 10:08-0400 Heart rate 92 /min Dr. Andreas Montilla Work Phone: [facility] 03-17-2023 10:08-0400 Respiratory rate 16 /min Dr. Andreas Montilla Work Phone: [facility] 03-17-2023 10:08-0400 SaO2% (BldA) [Mass fraction] 97 % Dr. Andreas Montilla Work Phone: [facility] 03-17-2023 10:08-0400 Systolic blood pressure 180 mm[Hg] Dr. Andreas Montilla Work Phone: [facility] 12-28-2022 19:18-0500 Diastolic blood pressure 83 mm[Hg] Dr. Andreas Montilla Work Phone: [facility] 12-28-2022 19:18-0500 Heart rate 72 /min Dr. Andreas Montilla Work Phone: [facility] 12-28-2022 19:18-0500 Respiratory rate 16 /min Dr. Andreas Montilla Work Phone: [facility] 12-28-2022 19:18-0500 SaO2% (BldA) [Mass fraction] 98 % Dr. Andreas Montilla Work Phone: [facility] 12-28-2022 19:18-0500 Systolic blood pressure 153 mm[Hg] Dr. Andreas Montilla Work Phone: [facility] 12-28-2022 17:10-0500 Body height 154.[address] Andreas Montilla Work Phone: [facility] 12-28-2022 17:10-0500 Body mass index (BMI) [Ratio] 38.5 kg/m2 Dr. Andreas Montilla Work Phone: [facility] 12-28-2022 17:10-0500 Body temperature 97.1 [degF] Dr. Andreas Montilla Work Phone: [facility] 12-28-2022 17:10-0500 Body weight 92.[address] Andreas Montilla Work Phone: [facility] 11-20-2022 08:05-0500 Body mass index (BMI) [Ratio] 38.9 kg/m2 Dr. Andreas Montilla Work Phone: [facility] 11-20-2022 08:05-0500 Body weight 93.[address] Andreas Montilla Work Phone: [facility] 11-14-2022 16:18-0500 Diastolic blood pressure 90 mm[Hg] Radha Kovacs MD Work Phone: [facility] 11-14-2022 16:18-0500 Systolic blood pressure 152 mm[Hg] Radha Kovacs MD Work Phone: [facility] 11-14-2022 15:46-0500 Body height 154.9 cm Radha Kovacs MD Work Phone: [facility] 11-14-2022 15:46-0500 Body weight 93.44 kg Radha Kovacs MD Work Phone: [facility] 07-19-2022 14:21-0400 Diastolic blood pressure 102 mm[Hg] Dr. Andreas Montilla Work Phone: [facility] Work Phone: 07-19-2022 14:21-0400 Systolic blood pressure 170 mm[Hg] Dr. Andreas Montilla Work Phone: [facility] Work Phone: 07-19-2022 13:36-0400 Body height 154.[address] Andreas Montilla Work Phone: [facility] Work Phone: 07-19-2022 13:36-0400 Body mass index (BMI) [Ratio] 37.3 kg/m2 Dr. Andreas Montilla Work Phone: [facility] Work Phone: 07-19-2022 13:36-0400 Body temperature 97.8 [degF] Dr. Andreas Montilla Work Phone: [facility] Work Phone: 07-19-2022 13:36-0400 Body weight 89.[address] Andreas Montilla Work Phone: [facility] Work Phone: 07-19-2022 13:36-0400 Heart rate 75 /min Dr. Andreas Montilla Work Phone: [facility] Work Phone: 07-19-2022 13:36-0400 Respiratory rate 16 /min Dr. Andreas Montilla Work Phone: [facility] Work Phone: 07-19-2022 13:36-0400 SaO2% (BldA) [Mass fraction] 99 % Dr. Andreas Montilla Work Phone: [facility] Work Phone: 01-23-2022 14:10-0400 Body temperature 98.7 [degF] Dr. Andreas Montilla Work Phone: [facility] Work Phone: 01-23-2022 14:10-0400 Diastolic blood pressure 87 mm[Hg] Dr. Andreas Montilla Work Phone: [facility] Work Phone: 01-23-2022 14:10-0400 Heart rate 81 /min Dr. Andreas Montilla Work Phone: [facility] Work Phone: 01-23-2022 14:10-0400 Respiratory rate 16 /min Dr. Andreas Montilla Work Phone: [facility] Work Phone: 01-23-2022 14:10-0400 SaO2% (BldA) [Mass fraction] 94 % Dr. Andreas Montilla Work Phone: [facility] Work Phone: 01-23-2022 14:10-0400 Systolic blood pressure 164 mm[Hg] Dr. Andreas Montilla Work Phone: [facility] Work Phone: 01-23-2022 08:14-0400 Body height 154.[address] Andreas Montilla Work Phone: [facility] Work Phone: 01-23-2022 08:14-0400 Body mass index (BMI) [Ratio] 36.8 kg/m2 Dr. Andreas Montilla Work Phone: [facility] Work Phone: 01-23-2022 08:14-0400 Body weight 88.[address] Andreas Montilla Work Phone: [facility] Work Phone: 12-29-2021 06:15-0500 Body temperature 97.7 [degF] Dr. Andreas Montilla Work Phone: [facility] Work Phone: 12-29-2021 06:15-0500 Diastolic blood pressure 85 mm[Hg] Dr. Andreas Montilla Work Phone: [facility] Work Phone: 12-29-2021 06:15-0500 Heart rate 73 /min Dr. Andreas Montilla Work Phone: [facility] Work Phone: 12-29-2021 06:15-0500 Respiratory rate 18 /min Dr. Andreas Montilla Work Phone: [facility] Work Phone: 12-29-2021 06:15-0500 SaO2% (BldA) [Mass fraction] 98 % Dr. Andreas Montilla Work Phone: [facility] Work Phone: 12-29-2021 06:15-0500 Systolic blood pressure 159 mm[Hg] Dr. Andreas Montilla Work Phone: [facility] Work Phone: 12-29-2021 05:12-0500 Body mass index (BMI) [Ratio] 35 kg/m2 Dr. Andreas Montilla Work Phone: [facility] Work Phone: 12-29-2021 05:12-0500 Body weight [address] Andreas Montilla Work Phone: [facility] Work Phone: 12-23-2021 12:34-0500 Body mass index (BMI) [Ratio] 36.2 kg/m2 Dr. Andreas Montilla Work Phone: [facility] Work Phone: 12-23-2021 12:34-0500 Body temperature 97.4 [degF] Dr. Andreas Montilla Work Phone: [facility] Work Phone: 12-23-2021 12:34-0500 Body weight 89.[address] Andreas Montilla Work Phone: [facility] Work Phone: 12-23-2021 12:34-0500 Diastolic blood pressure 62 mm[Hg] Dr. Andreas Montilla Work Phone: [facility] Work Phone: 12-23-2021 12:34-0500 Heart rate 75 /min Dr. Andreas Montilla Work Phone: [facility] Work Phone: 12-23-2021 12:34-0500 Respiratory rate 18 /min Dr. Andreas Montilla Work Phone: [facility] Work Phone: 12-23-2021 12:34-0500 SaO2% (BldA) [Mass fraction] 97 % Dr. Andreas Montilla Work Phone: [facility] Work Phone: 12-23-2021 12:34-0500 Systolic blood pressure 169 mm[Hg] Dr. Andreas Montilla Work Phone: [facility] Work Phone: 12-22-2021 10:36-0500 Diastolic blood pressure 86 mm[Hg] Dr. Andreas Montilla Work Phone: [facility] Work Phone: 12-22-2021 10:36-0500 Heart rate 74 /min Dr. Andreas Montilla Work Phone: [facility] Work Phone: 12-22-2021 10:36-0500 Respiratory rate 16 /min Dr. Andreas Montilla Work Phone: [facility] Work Phone: 12-22-2021 10:36-0500 SaO2% (BldA) [Mass fraction] 93 % Dr. Andreas Montilla Work Phone: [facility] Work Phone: 12-22-2021 10:36-0500 Systolic blood pressure 176 mm[Hg] Dr. Andreas Montilla Work Phone: [facility] Work Phone: 12-22-2021 08:30-0500 Body mass index (BMI) [Ratio] 36.8 kg/m2 Dr. Anderas Montilla Work Phone: [facility] Work Phone: 12-22-2021 08:30-0500 Body temperature 98.2 [degF] Dr. Andreas Montilla Work Phone: [facility] Work Phone: 12-22-2021 08:30-0500 Body weight 88.[address] Andreas Montilla Work Phone: [facility] Work Phone: Encounters Encounter Date Encounter Type Care Provider Facility Start: 07-10-2025 ambulatory ANDREAS MONTILLA Facility :[facility] Start: 06-29-2025 End: 06-29-[address] Andreas Montilla MD Work Phone: -Laboratory [facility] Start: 06-29-2025 End: 06-29-[address] Andreas Montilla MD -Laboratory [facility] Start: 06-29-2025 End: 06-29-2025 ambulatory Andreas Montilla Facility:[facility] Start: 05-07-2025 End: 05-07-[address] Andreas Montilla MD Work Phone: -Laboratory [facility] Start: 05-07-2025 End: 05-07-[address] Andreas Montilla MD -Laboratory [facility] Start: 05-07-2025 End: 05-07-2025 ambulatory Andreas Montilla Facility:[facility] Start: 01-12-2025 End: 01-12-[address] Andreas Montilla MD Work Phone: [facility] Work Phone: Start: 01-12-2025 End: 01-12-[address] [facility] Start: 01-12-2025 End: 01-12-2025 ambulatory Andreas Montilla Facility:[facility] Start: 06-10-2024 End: 06-10-2024 Patient encounter procedure Radha Kovacs MD Work Phone: OB/Gynecology Comment on above: Encounter for screen ing mammogram for breast cancer (Primary Dx); Encounter for gynecological examination (general) (routine) without abnormal findings; Cervical cancer screening; Special screening examination for human papillomavirus (HPV) Start: 06-10-2024 End: 06-10-2024 Patient encounter status Radha Kovacs MD Work Phone: [facility] Start: 02-11-2024 End: 02-11-[address] Andreas Montilla Work Phone: [facility] Work Phone: Start: 02-11-2024 End: 02-11-[address] Andreas Montilla Work Phone: [facility] Work Phone: Start: 01-23-2024 End: 01-23-[address] Andreas Montilla Work Phone: [facility] Work Phone: Start: 01-23-2024 End: 01-23-[address] Andreas Montilla Work Phone: [facility]-Cat Scan, [facility] Work Phone: Start: 01-17-2024 End: 01-17-[address] Andreas Montilla Work Phone: [facility] Work Phone: Start: 01-17-2024 End: 01-17-[address] Andreas Montilla Work Phone: [facility] Work Phone: Start: 01-09-2024 End: 01-09-2024 Patient encounter procedure Anna Baum APRN.NAVIGATING OFFICER Work Phone: OB/Gynecology Comment on above: Essential hypertensi on (Primary Dx); History of vitamin D deficiency; Screening cholesterol level; Screening for deficiency anemia; Screening for diabetes mellitus; Screening for metabolic disorder; Screening for thyroid disorder; Encounter for vitamin deficiency screening; Class 2 severe obesity with serious comorbidity and body mass index (BMI) of 38.0 to 38.9 in adult, unspecified obesity type (HCC) Start: 12-05-2023 Telephone encounter Gin alonso APRN.NAVIGATING OFFICER Work Phone: OB/Gynecology Comment on above: Results Start: 12-05-2023 End: 12-05-2023 Subsequent hospital visit by physician Diagnostic Mammo [facility] Comment on above: Abdominal bloating [ R14.0] Mastalgia [N64.4] Start: 11-20-2023 End: 11-20-[address] Andreas Montilla Work Phone: [facility] Work Phone: Start: 09-12-2023 Non-patient / Non-visit Dr. Talat Montilla Work Phone: [facility] Start: 09-12-2023 End: 09-12-[address] Andreas Montilla Work Phone: [facility] Work Phone: Start: 09-12-2023 End: 09-12-[address] Andreas Montilla Work Phone: [facility] Work Phone: Start: 09-12-2023 End: 09-12-2023 Emergency department patient visit Dr. Andreas Montilla Work Phone: [facility]-Emergency Department Work Phone: Start: 07-31-2023 Non-patient / Non-visit Dr. Taalt Montilla Work Phone: [facility] Work Phone: Start: 07-30-2023 Non-patient / Non-visit Dr. Talat Montilla Work Phone: [facility] Start: 07-30-2023 End: 07-30-[address] Andreas Montilla Work Phone: [facility] Work Phone: Start: 07-30-2023 End: 07-30-[address] Andreas Montilla Work Phone: [facility] Work Phone: Start: 07-23-2023 Non-patient / Non-visit Dr. Talat Montilla Work Phone: [facility] Work Phone: Start: 07-20-2023 End: 07-20-[address] Andreas Montilla Work Phone: [facility] Work Phone: Start: 07-06-2023 End: 07-06-[address] Andreas Montilla Work Phone: [facility] Work Phone: Start: 07-04-2023 End: 07-04-2023 Emergency department patient visit Dr. Andreas Montilla Work Phone: [facility]-Emergency Department Work Phone: Start: 05-21-2023 End: 05-21-[address] Andreas Montilla Work Phone: [facility] Work Phone: Start: 05-21-2023 End: 05-21-[address] Andreas Montilla Work Phone: [facility] Start: 04-12-2023 Non-patient / Non-visit Dr. Talat Montilla Work Phone: [facility] Start: 04-12-2023 End: 04-12-[address] Andreas Montilla Work Phone: [facility] Work Phone: Start: 04-12-2023 End: 04-12-[address] Andreas Montilla Work Phone: [facility] Start: 04-04-2023 End: 04-04-[address] Andreas Montilla Work Phone: [facility] Work Phone: Start: 04-04-2023 End: 04-04-[address] Andreas Montilla Work Phone: [facility]-Laboratory Start: 04-04-2023 End: 04-04-[address] Andreas Montilla Work Phone: [facility] Start: 03-17-2023 End: 03-17-[address] Andreas Montilla Work Phone: [facility] Start: 03-06-2023 Non-patient / Non-visit Dr. Talat Montilla Work Phone: [facility] Start: 01-12-2023 End: 01-12-[address] Andreas Montilla Work Phone: [facility] Work Phone: Start: 01-12-2023 End: 01-12-[address] Andreas Montilla Work Phone: [facility] Start: 12-28-2022 End: 12-28-2022 Emergency department patient visit Dr. Andreas Montilla Work Phone: [facility]-Emergency Department Start: 12-11-2022 Documentation procedure Mammog niles Coordinator [facility] Start: 12-11-2022 Letter encounter Mammography Coordinator [facility] Department Start: 11-20-2022 End: 11-20-[address] Andreas Montilla Work Phone: [facility] Start: 11-14-2022 End: 11-14-2022 Patient encounter procedure Radha Kovacs MD Work Phone: OB/Gynecology Comment on above: Encounter for gyneco logical examination (general) (routine) without abnormal findings (Primary Dx); Dense breast tissue; Incomplete uterovaginal prolapse Start: 11-14-2022 End: 11-14-2022 Patient encounter status Radha Kovacs MD Work Phone: OB/Gynecology Start: 10-04-2022 End: 10-04-[address] Andreas Montilla Work Phone: [facility] Work Phone: Start: 10-04-2022 End: 10-04-[address] [facility] Start: 07-19-2022 End: 07-19-[address] Andreas Montilla Work Phone: [facility] Start: 01-23-2022 Non-patient / Non-visit Dr. Talat Montilla Work Phone: [facility] Start: 01-23-2022 End: 01-23-2022 Admission to same day surgery center Dr. Andreas Montilla Work Phone: [facility] Start: 12-29-2021 Non-patient / Non-visit Dr. Talat Montilla Work Phone: [facility] Start: 12-29-2021 End: 12-29-2021 Admission to same day surgery center Dr. Andreas Montilla Work Phone: [facility]-Endoscopy Start: 12-23-2021 End: 12-23-[address] Andreas Montilla Work Phone: [facility] Start: 12-22-2021 End: 12-22-2021 Emergency department patient visit Dr. Andreas Montilla Work Phone: [facility]-Emergency Department Start: 12-14-2021 End: 12-14-[address] Andreas Montilla Work Phone: [facility]-Nuclear Medicine, [facility] Start: 11-18-2021 End: 11-18-[address] Andreas Montilla Work Phone[facility] Start: 10-26-2021 End: 10-26-[address] Andreas Montilla Work Phone: [facility]-Ultrasound, [facility] Procedures Date Procedure Procedure Detail Performing Clinician Start: 01-23-2024 MRI of lower extremity Dr. Andreas Montilla Work Phone: Start: 12-05-2023 End: 12-05-2023 Us transvaginal Gin Neely APRN.NAVIGATING OFFICER Work Phone: Start: 12-05-2023 Digital breast tomos ynthesis bilateral Gin Neely APRN.NAVIGATING OFFICER Work Phone: Start: 09-12-2023 Radiologic examinati on of knee Dr. Andreas Montilla Work Phone: Start: 07-30-2023 Radionuclide imaging of perfusion of myocardium under exercise stress Dr. Andreas Montilla Work Phone: Start: 07-20-2023 CT of abdominal vasc ular structures Dr. Andreas Montilla Work Phone: Start: 07-04-2023 Plain chest X-ray Dr. Beatrice Montilla Work Phone: Start: 12-28-2022 Plain chest X-ray Dr. Beatrice Montilla Work Phone: Start: 12-08-2022 Mammography Mammograph y Coordinator Start: 11-20-2022 X-ray of lumbar spin e, two or three views Dr. Andreas Montilla Work Phone: Start: 10-04-2022 MRI of lumbar spine Dr. Andreas Montilla Work Phone: Start: 01-23-2022 Total cholecystectom y and exploration of common bile duct Dr. Andreas Montilla Work Phone: Start: 01-23-2022 Fluoroscopic guidance Carmen Montilla Work Phone: Start: 01-20-2022 End: 01-20-[address] Andreas Montilla Work Phone: Start: 12-14-2021 Radionuclide imaging of liver and/or biliary tract using radioactive isotope Dr. Andreas Montilla Work Phone: Start: 10-26-[address] Andreas Montilla Work Phone: Start: 10-10-2021 Mammography Radha palmer MD Work Phone: Start: 10-20-2011 Lipid 1996 panel - S harini or Plasma Gin Neely APRN.NAVIGATING OFFICER Work Phone: Plan of Treatment Date Care Activity Detail Author Start: 03-28-2033 Urine microalbumin profile DTaP,Tdap,Td Vaccine (2 - Td or Tdap) [facility] Start: 11-08-2026 HPV TESTING HPV TESTING [facility] Start: 11-08-2026 PAP TESTING PAP TESTING [facility] Start: 11-08-2026 Screening for malign ant neoplasm of cervix [facility] Start: 06-11-2025 End: 06-11-2025 Patient encounter procedure 06/11/2025 3:40 PM EDT Office Visit OB/Gynecology [address] [place], [place] [id number] Radha Kovacs MD [address] [place] [place] [address] annual exam OB/Gynecology Comment on above: annual exam Start: 12-05-2024 Screening for malign ant neoplasm of breast Mammogram Screening [facility] Start: 06-22-2024 Influenza vaccination Influenza Vacc ine (#1) [facility] Start: 12-08-2023 Mammography MAMMOGRAM [facility] Start: 10-22-2023 Depression Assessment Depression Ass essment [facility] Start: 09-12-2023 [facility] Start: 09-12-2023 US.doppler Lower extremity vein [facility] Start: 07-04-2023 [facility] Start: 06-22-2023 Covid-19 Vaccine ( season) Covid-19 Vaccine ( season) [facility] Start: 06-22-2023 Influenza vaccination Influenza Vacc ine (#1) [facility] Start: 05-21-2023 Procedure [facility] Start: 04-04-2023 Aldosterone [Mass/vo lume] in Serum or Plasma [facility] Start: 04-04-2023 Renin [Enzymatic activity/volume] in Plasma [facility] Start: 12-28-2022 [facility] Start: 12-28-2022 Blood chemistry [facility] Start: 12-28-2022 Thyroid stimulating hormone measurement [facility] Start: 12-28-2022 End: 12-28-2022 [facility] Start: 10-22-2022 DEPRESSION ASSESSMENT DEPRESSION ASS ESSMENT [facility] Start: 10-10-2022 Mammography MAMMOGRAM [facility] Start: 06-27-2022 COVID-19 VACCINE (4 - Booster for Pfizer series) COVID-19 VACCINE (4 - Booster for Pfizer series) [facility] Start: 06-22-2022 Influenza vaccination INFLUENZA (#1) [facility] Start: 01-23-2022 Cholangiogram Cholangiogram/ O R,Initial [facility] Work Phone: Start: 12-29-2021 Colonoscopy flx dx w/collj spec when pfrmd DIAGNOSTIC COLONOSCOPY [facility] Work Phone: Start: 10-20-2016 Lipid panel Lipid Screening [facility] Start: 10-20-2016 LIPID SCREEN LIPID SCREEN [facility] Start: 2015 SHINGRIX VACCINE (1 of 2) PATTON GRIX VACCINE (1 of 2) [facility] Start: 10-20-2014 DIABETES SCREEN DIABETES SCREEN [facility] Start: 10-20-2014 Diabetes Screening Diabetes Screenin g [facility] Start: 2010 COLOGUARD (FIT-DNA) COLOGUARD (FIT-D NA) [facility] Start: 2010 Colonoscopy COLONOSCOPY [facility] Start: 2010 COLORECTAL CANCER SCREENING COLORECTAL CANCER SCREENING [facility] Start: [address] COLONOGRAPHY [facility] Start: 2010 FECAL OCCULT BLOOD FECAL OCCULT BLOO D [facility] Start: 2010 Screening for malign ant neoplasm of colon [facility] Start: 2010 SIGMOIDOSCOPY SIGMOIDOSCOPY [facility] Start: 1984 Hepatitis B Vaccine (1 of 3 - 19+ 3-dose series) Hepatitis B Vaccine (1 of 3 - 19+ 3-dose series) [facility] Start: 1984 Urine microalbumin profile DTAP,TDAP,TD (1 - Tdap) [facility] Start: 1983 Anxiety Screening Anxiety Screening [facility] Start: 1983 Depression Screening Depression Scre ening [facility] Start: 1983 HEPATITIS C SCREENING HEPATITIS C [facility] Start: 1983 Hepatitis C screening Hepatitis C [facility] Start: 1983 HIV SCREENING HIV SCREENING [facility] Start: 1983 HIV screening HIV Screening [facility] Start: 1965 HEPATITIS B (1 of 3 - 3-dose series) HEPATITIS B (1 of 3 - 3-dose series) [facility] Start: 1965 Hepatitis B Vaccine (1 of 3 - 3-dose series) Hepatitis B Vaccine (1 of 3 - 3-dose series) [facility] CT Abdomen and Pelvi s WO and W contrast IV [facility] End: 07-10-2025 DBT Breast - bilateral screening [facility] SCREENING W [facility] Radiology Routine Encounter for screening mammogram for breast cancer 1 Occurrences starting 06/10/2024 until 07/10/2025 [facility] Work Phone: Comment on above: 1 Occurrences starti ng 06/10/2024 until 07/10/2025 End: 12-14-2023 SHAMEKA SCREENING W MERRICK HSAMEKA SCREENING W [facility] Radiology Routine Dense breast tissue 1 Occurrences starting 11/14/2022 until 12/14/2023 [facility] Work Phone: Comment on above: 1 Occurrences starti ng 11/14/2022 until 12/14/2023 PAP TEST PAP TEST Lab [facility] thomas Encounter for screening mammogram for breast cancer Cervical cancer screening Special screening examination for human papillomavirus (HPV) 06/10/2024 4:31 PM EDT [facility] Patient Education [facility] Work Phone: Patient referral [facility] Work Phone: [facility] Payers Date Payer Category Payer Self-pay [id number] 2019 Unknown [id number] 2015 Unknown [id number] Unknown [id number] Unknown [id number] Unknown [id number] Social History Date Type Detail Facility [facility] Work Phone: Start: 12-28-2021 End: 11-20-2023 Tobacco smoking status VAIS Unknown if ever smoked [facility] Start: 02-11-2021 Spouse/ Signif icant Other [facility] Start: 1965 Sex Assigned At Female [facility] Start: 10-19-2011 End: 11-20-2023 Tobacco smoking status VAIS Never smoked tobacco [facility] Start: 10-19-2011 End: 12-18-2022 Tobacco use and exposure Smokeless tobacco non-user [facility] Start: 11-14-2022 End: 06-10-2024 Alcohol intake Current drinker of alcohol (finding) [facility] Start: 07-20-2009 [facility] Start: 1965 Sex Assigned At Not on file [facility] Start: 11-21-2023 End: 06-10-2024 History of Social function [facility] Start: 11-21-2023 End: 06-10-2024 Tobacco use panel [facility] National Score (1-100), lower number is lower risk 71 [facility] Start: 01-17-2025 Sex Female (finding) [facility] Medical Equipment Procedure Code Equipment Code Equipment Original Text Equipment Identifier Dates Total cholecystectomy with exploration of common bile duct DRESSING,FIBRILLA R [id number] FDA Start: 01-23-2022 Total cholecystectomy with exploration of common bile duct Ligation clip, synthetic polymer, non-bioabsorbable ()[id number] FDA Start: 01-23-2022 Total cholecystectomy with exploration of common bile duct DRESSING,FIBRILLA R [id number] FDA Start: 01-23-2022 Total cholecystectomy with exploration of common bile duct DRESSING,FIBRILLA R 1X2 196 FDA Start: 01-23-2022 Total cholecystectomy with exploration of common bile duct DRESSING,FIBRILLA R 1X2 196 FDA Start: 01-23-2022 Total cholecystectomy with exploration of common bile duct DRESSING,FIBRILLA R 1X2 1960 FDA Start: 01-23-2022 Total cholecystectomy with exploration of common bile duct DRESSING,FIBRILLA R 1X2 196 FDA Start: 01-23-2022 Total cholecystectomy with exploration of common bile duct DRESSING,FIBRILLA R 1X2 1960 FDA Start: 01-23-2022 Total cholecystectomy with exploration of common bile duct DRESSING,FIBRILLA R 1X2 1960 FDA Start: 01-23-2022 Total cholecystectomy with exploration of common bile duct DRESSING,FIBRILLA R 1X2 1960 FDA Start: 01-23-2022 Total cholecystectomy with exploration of common bile duct DRESSING,FIBRILLA R 1X2 1960 FDA Start: 01-23-2022 Total cholecystectomy with exploration of common bile duct DRESSING,FIBRILLA R 1X2 196 FDA Start: 01-23-2022 Total cholecystectomy with exploration of common bile duct DRESSING,FIBRILLA R 1X2 1960 FDA Start: 01-23-2022 Total cholecystectomy with exploration of common bile duct DRESSING,FIBRILLA R 1X2 1960 FDA Start: 01-23-2022 Total cholecystectomy with exploration of common bile duct DRESSING,FIBRILLA R 1X2 1960 FDA Start: 01-23-2022 Total cholecystectomy with exploration of common bile duct DRESSING,FIBRILLA R 1X2 1960 FDA Start: 01-23-2022 Total cholecystectomy with exploration of common bile duct DRESSING,FIBRILLA R 1X2 1960 FDA Start: 01-23-2022 Functional Status Date Assessment Result Facility 01-23-2022 Functional status Ambulates;Bathroom Priv ilege [facility] Work Phone: Mental Status Date Assessment Result Facility 07-04-2023 Cognitive function Level Of Cons ciousness Awake;Alert;Appropriate;Follow s Commands [facility] Work Phone: 12-28-2022 Cognitive function Voice/Name [facility] Work Phone: 01-23-2022 Cognitive function Voice/Name;Touch/Shaki ng [facility] Work Phone: 12-29-2021 Cognitive function Voice/Name [facility] Work Phone: Clinical Notes 11-14-2022 to 07-10-2025 Patient Radha Gibbons MD - 06/10/2024 3:41 PM EDTPatient InstructionsAnna Baum APRN.CNP - 01/09/2024 12:57 PM EDTTelephone Encounter - Sandhya Wen RN - 12/05/2023 3:55 PM EST Note Date & Type Note Facility 07-10-2025 Note HNO ID: [id number] Author: SALAS MCGRATH Mammo Tech Service: ? Author Type: Administrative Representative Type: Progress Notes Filed: 07/10/2025 14:55 Note Text: Radiology Service Progress Note PATIENT NAME: Gayle Orona DATE OF SERVICE: July 10, 2025 TIME: 2:55 PM PATIENT IDENTITY VERIFICATION COMPLETED USING TWO (2) IDENTIFIERS: Name and Date of confirmed by patient verbally. FALL SCREENING: Has the patient had 2 falls in the last year or 1 fall with injury or currently using an Ambulatory Assistive Device (Walker, Cane, Wheelchair, Crutches, etc.)? No PATIENT GENDER DATA: Assigned female at . status: : No status: NO. PATIENT RELEVANT IMPLANT DATA REVIEWED: Not Applicable PATIENT PRESENTS WITH AN IMPLANTABLE OR ATTACHED SAW STRAIGHTENER: No RADIOLOGY DEPARTMENT: Mammography PERIPHERAL IV DATA: Not applicable SIGNED BY: Servando Brady July 10, 2025 2:55 PM [facility] 06-10-2024 Instructions Radha Kovacs MD - 06/10/2024 4:08 PM EDT Calcium and Vitamin D Supplementation (from the National Institutes of Health Office of Dietary Supplements 2011) Calcium is required by the body for blood vessel, muscle, hormone and nerve functioning. Most of the body's calcium is stored in the bones and teeth where it supports structure and function. Bone is continuously broken down and reformed. When bone breakdown exceeds formation, especially in postmenopausal women, bone loss can increase the risk of osteoporosis and fractures. In addition to low calcium intake, women who smoke, have a family history of osteoporosis, are thin, or , or who take certain medications such as cancer chemotherapy, seizure mediations and steroids are at increased risk of osteoporosis. The calcium requirements in women change with age. The National Institutes of Health (NIH) recommends: 1000mg elemental calcium for premenopausal women age 19-50 1200mg elemental calcium for postmenopausal women and all women over 50 Milk, yogurt, and cheese are rich natural sources of calcium and are the major food contributors in the [place]. For example, 8oz of milk (whole, lowfat or skim) contains about 300mg calcium, 8oz of yogurt contains 415mg. Nondairy sources include salmon and sardines and vegetables, such as Malaysian cabbage, kale, and broccoli. Foods fortified with calcium include many fruit juices, tofu and cereals. For more food calcium content information, visit http://ods.od.nih.gov/factsheet s/calcium. Calcium supplements come in several different forms. Remember that the recommendations are for millgrams (mg) of elemental calcium which may be less than the total weight of the supplement. The amount of elemental calcium is required to be printed on the label. Calcium carbonate is the least expensive form. It must be taken on a full stomach to be properly absorbed. Some patients may experience gas or constipation. Calcium phosphate and calcium citrate may be taken either with or without food and tend to have less side effects but are generally more expensive. Because of its ability to neutralize stomach acid, calcium carbonate is found in some quba-dhv-adweosy antacid products, such as Tums and Rolaids . Depending on its strength, each chewable pill or softchew provides 200 to 400 mg of elemental calcium. The percentage of calcium absorbed depends on the total amount of elemental calcium consumed at one time. Absorption is highest in doses <500mg. So a woman who takes 1,000mg/day of calcium from supplements should split the dose and take 500mg at two separate times during the day. Too much calcium can cause kidney stones, constipation, difficulty absorbing other nutrients and calcium buildup in blood vessels. Women under 50 should not exceed 2500mg/day (2000mg/day for women over 50) of calcium from food and supplements. Excessive alcohol and caffeine intake can inhibit absorption of calcium. Calcium can reduce the absorption of some medications if taken at the same time of day (bisphosphonates, thyroid medication, Phenytoin and other seizure medications, some antibiotics and iron supplements). Vitamin D promotes calcium absorption in the gut and maintains adequate blood levels of calcium and phosphate for normal bone growth and bone remodeling. Vitamin D also helps regulate cell growth as well as nerve, muscle and immune system function. Vitamin D is produced in the skin as a result of ultraviolet sunlight rays and must be altered in the liver and kidney to become its active form. Recommended intake according to the National Institutes of Health is 600 International Units (IU) for girls and women ages 1-70 and 800 IU for women over 70. Very few foods in nature contain vitamin D. The flesh of fatty fish (such as salmon, tuna, and mackerel) and fish liver oils are among the best sources. Small amounts of vitamin D are found in beef liver, cheese, mushrooms and egg yolks. Most people meet at least some of their vitamin D needs through exposure to sunlight. Season, time of day, length of day, cloud cover, smog, skin melanin content, and sunscreen are among the factors that affect UV radiation exposure and vitamin D synthesis. Despite the importance of the sun for vitamin D synthesis, it is prudent to limit exposure of skin to sunlight and avoid tanning beds. UV radiation is a carcinogen responsible for most of the estimated 1.5 million skin cancers that occur annually in the [place]. Lifetime cumulative UV damage to skin is also responsible for some age-associated dryness and other cosmetic changes. In supplements and fortified foods, vitamin D is available in two forms, D2 (ergocalciferol) and D3 (cholecalciferol). The two are equivalent at normal supplement doses. For women who require high supplement doses because of vitamin D deficiency, D3 may work better to raise blood levels. Some medications can prevent proper absorption of Vitamin D. These include laxatives, corticosteroids like prednisone, the seizure drugs phenobarbital and phenytoin, the weight-loss drug orlistat ( Xenical and AlliTM) and the cholesterol-lowering drug cholestyramine (Questran , LoCholest , and Prevalite ). Talk to your doctor about adjusting your recommended daily vitamin D dosage if you take these medications. You should not exceed 4000 mg of vitamin D supplementation daily unless specifically prescribed by your doctor. documented in this encounter [facility] 06-10-2024 History of Presen t illness Narrative Anode Rebuilder offered: Patient declinesHector Araujo is a 58 year old who presents for an annual gynecologic exam without complaints. Postmenopausal: Yes Last Pap: 11/15/2021 normal HPV: 11/11/2021 negative History of abnormal pap: Yes- OLAMIDE with negative HPV 2016 Last mammogram: negative diagnostic imaging 11/2023 OB History T0 L3 SAB1 IAB0 Ectopic0 Multiple0 Live Births0 Comment: 3 vaginal deliveries 1 D&C for missed ab [employer] History LMP: 06/10/2017, Postmenopausal Age at Menarche: Age at First : Age at Menopause: Overhead Door Technician History Comments: Sexual Activity: Not Currently; Male Contraception: No contraception data on record PAST MEDICAL HISTORY No date: Hypertension No date: Hypothyroid No date: Other forms of migrainePAST SURGICAL HISTORY No date: BREAST BIOPSY; Left Comment: negative No date: DILATION & CURETTAGE DX&/THER NONOBSTETRIC No date: PAST SURGICAL HISTORY OF Comment: vein surgery 11/2010: PAST SURGICAL HISTORY OF Comment: vein ablation 01/2022: REMOVAL GALLBLADDER 01/2024: TOTAL KNEE REPLACEMENT; Right FAMILY HISTORY Problem Relation Age of Onset Hypertension Mother Obesity Mother Heart Father OH CHF HTH Obesity Father Obesity Maternal Grandmother Breast Cancer Paternal Grandmother SOCIAL HISTORY Social History Tobacco Use Smoking status: Never Smokeless tobacco: Never Vaping Use Vaping status: Never Used Substance Use Topics Alcohol use: Yes Comment: rarely Drug use: No REVIEW OF SYSTEMS Abdomen: No abdominal pain, nausea, vomiting, diarrhea, or constipation. No bloating, early satiety, indigestion, or increased flatulence. Bladder: stable issues - saw 2022 Breast: No breast lumps, nipple d/c, overlying skin changes, redness or skin retraction Allergies and current medication updated:Yes EXAM: BP 138/86 Ht 5' .25 (1.53m) Wt 195 lb (88.5kg) LMP 06/10/2017 BMI 37.79 kg/(m^2). GENERAL: pleasant, female in no apparent distress BREAST: soft, non-tender, symmetric, no dominant mass, normal nipple-areolar complex, no lymphadenopathy, and no nipple discharge CHEST: Normal inspiratory effort ABDOMEN: soft, non-tender, and no masses PELVIC: external genitalia normal, no vulvar lesions, no cervical lesions, normal appearing perineal body and perianal region; uterovaginal prolapse BIMANUAL: uterus normal size, shape and consistency, no adnexal masses, and non-tender RECTOVAGINAL: deferred. NEURO: alert and oriented x3,exam grossly non-focal EXTREMITIES: normal ASSESSMENT/PLAN: 1) Health maintenance: Pap done with HPV. Mammogram up to date Nutrition, exercise and routine health maintenance exams reviewed. Calcium/Vitamin D supplementation information provided. Colon cancer screening: up to date with screening 2) Follow up one year or sooner as needed 3) Uterovaginal prolapse & urinary frequency - follow up with Dr.Wallace ROLA Kovacs MD documented in this encounter [facility] 01-09-2024 Instructions Anna Baum APRN.NAVIGATING OFFICER - 01/09/2024 12:58 PM EDT Weight Management: You have taken the initiative to become a healthier version of yourself and to decrease the risks that come with the diagnosis of obesity or being overweight. We are happy to help you along this journey but know this is a lifetime commitment to yourself. Losing just 3-10 % of your body weight can decrease your risks of many other serious diseases like diabetes, heart disease, osteoarthritis, hypertension, cancer and so many others. During this time you will have triumphs, setbacks and plateaus- your body will fight against you but we are here to give you the tools and the resources to continue to reach your goals. We recommend during this time that you track your weight daily or at least five times per week as well as tracking your nutrition. You may track your activity but do not use hitting your fitness goals as a reward system as this can derail your success. We recommend weekly physical activity of 150-200 min/week-although physical exercise can help with maintaining weight loss it adds only a little benefit for parts counterman weight loss success. However, exercise can have many other benefits including improving mental health and cardiovascular health. Do not feel overwhelmed- we will discuss this more at your visits. Our time will be limited with each visit but we will try to touch on factors that are important to you and to your overall goals. We will try to set a goal at the end of each visit and then decide on what we want to accomplish with your upcoming visits. On your After Visit Summary (AVS), we will provide you with information that may be useful during this journey so please remember to read the information given. Check your AVS a few days after your appointment because we may have added more information specifically for you. Remember that if you are placed on medications, they are tools that can help you succeed but you must put in the work. Your nutrition will be the main factor. There are medications that work well for some and not for others- so it may take time to find the right combination for your body's needs. Please remember that factors such as other health co-morbidities one might have, as well as insurance coverage, will play a factor in determining which medications you can take. Most of the newer medications that are all the craze ,injectables, may not be covered or will only be covered if you fail months of oral medications- so please be patient with the process. It would be beneficial for you to determine what your insurance covers as far as Anti-Obesity Medications (AOMs), Nutritional Counseling, behavioral intervention and weight loss surgery. Please call your health insurance prior to your first appointment and write down coverage for each of those therapies. Most importantly, remember that ultimately our goal is to help you get to a healthier weight which will decrease your overall health risks. We will work together as a team and try to reach your personalized goals as well. We appreciate that you have entrusted us with your health and know that we are committed to this process with you. Sincerely, Marni Manuel MD, NGUYEN KUNZ & Anan Baum, NAVIGATING OFFICER Obesity Obesity is a disease that affects nearly one-third of the adult [place] population (approximately 60 million). The number of overweight and obese Americans has continued to increase since 1960, a trend that is not slowing down. Today, 64.5 percent of adult Americans (about 127 million) are categorized as being overweight or obese. Each year, obesity causes at least 300,000 excess deaths in the [place] and healthcare costs of [place] adults with obesity amount to approximately $100 billion. (AOA) Obesity is a complex, multi-factorial chronic disease involving: Environmental (social and cultural) The tendency toward obesity is a result of our environment: lack of physical activity along with high-calorie, low-cost foods. Home, work, school, and even the community can inhibit a healthy lifestyle. Genetic (Hereditary plays a large role in determining how susceptible people are to overweight and obesity). Genes also influence how the body tyson calories for energy and stores fat. Physiologic, metabolic, behavioral (eating too many calories while not getting enough exercise) and psychological components. It is the second leading cause of preventable in the [place] Behavioral changes brought on by economic development, modernization and urbanization have been linked to the rise in global obesity. Calculating BMI Body Mass Index (BMI) is a measurement tool used to determine excess body weight. Overweight is defined as a BMI of 25 or more, obesity is 30 or more, and severe obesity is 40 or more. You can visit www.nhlbi.nih.gov to estimate your BMI. Obesity Related Health Conditions The morbidity and mortality risk from being overweight is proportional to its degree. Individuals with morbid obesity, therefore, have the highest risk for developing numerous illnesses that often reduce mobility and quality of life due to their excess weight. In particular, type 2 diabetes, gallbladder disease and osteoarthritis have been found to increase concurrently with higher BMI. Premature , a 20-year shorter life span, has also been found in individuals with morbid obesity. All of the systems that make the body function are affected by morbid obesity. Type 2 diabetes Gallbladder disease and gallstones Liver disease Osteoarthritis, a disease in which the joints deteriorate. This is possibly the result of excess weight on the joints. Gout, another disease affecting the joints Pulmonary (breathing) problems, including sleep apnea in which a person can stop breathing for a short time during sleep Reproductive problems in women, including menstrual irregularities and infertility Gastroesophageal reflux/heartburn Hypertension Heart Disease Depression Psychological disorders/social impairments Urinary Stress Incontinence Obesity is also linked to higher rates of certain types of cancer. Obese men are more likely than non-obese men to from cancer of the colon, rectum, or prostate. Obese women are more likely than non-obese women to from cancer of the gallbladder, breast, uterus, cervix, or ovaries https://my.[facility].org/ health/diseases/48710-xbsqqu-ni dpqgbbrw-mipnvow-jmopkcnyj Nutrition - Eat primarily whole foods. Limit carbs, especially processed carbs. - Do not drink your calories - 30 grams of protein for breakfast decreases your hunger during the day by up to 40 % Premier Protein or generic 30 gm protein 1 gm sugar - Walk for 15 minutes immediately a meal. - Whole food low-carb diet with 30 g of protein 3 times a day and up to 30 g of carbs at lunch and dinner only. Meals - protein is a goal and carbohydrates are a limit Snacks - all protein or more protein than carbs Use tracking log as a worksheet and bring with you to your next appointment. Protein - no carbs Egg 1 large - 6g Egg white 1 large 3.6g 3 oz is approximately the size of a deck of cards and equals 21 g protein Beef, Chicken, Belle, Pork, Ordonez 1 oz 7g Fish, Tuna Fish 1 oz 7g (Starkist tuna packet 2.6 oz 17 gm protein) Seafood (Crabmeat, Shrimp, Lobster) 1 oz 6g Protein shakes (read labels) Premier Protein or generic [employer] Equate, [employer] High Performance- 30g protein & 1g carb - meal replacement Premier Protein plant protein powder - 25 gm protein, 0 suger/2 carb Vanilla and chocolate (not a meal replacement) Fairlife 30 gram protein - 30g protein & 2g carb BOOST Glucose Control Max 30g Protein Nutritional Drink - 30g protein & 1 carb - meal replacement Slimfast High Protein - 20g protein & 1g carb Ensure Max Protein Nutrition Shake 30g protein & 2 carb Protein AND carbs Beef/Belle Jerky 1 oz dried 10-15g protein - check carb count, can be high if sugar added Slim Emory - 6 gm protein and 4 net carb Great Value original turkey sausage sticks - 7 gm protein and 2 gm carb Terri & Giovanni (at [employer]) Original smoked sausage sticks - 8 gm protein and 0 carb Imitation Crab Meat 1 oz - 2g protein & 4g carb Milk, skim 2% or 1% 8 oz - 8g protein & 12g carb Lithuanian yogurt Full Fat Lithuanian Yogurt 1 cup - 20.4g protein & 9.1g carb 2% Lithuanian Yogurt 1 cup - 22.7g protein & 9.1g carb 0% (fat-free) Lithuanian Yogurt - 1 cup 24g protein & 9.3g carb :ratio, KETO Friendly Dairy Snack 1 single svg - 15g protein & 2g carb :ratio Protein 1 single svg - 25g protein & 8g carb Dannon Light + Fit 1 single csvg - 12g protein & 9g carb Two Good Lowfat Lithuanian Yogurt, Vale, Lower Sugar - 12g protein & 2g carb Oikos Triple Zero Lithuanian Nonfat Yogurt 1 single svg - 15g protein & 7g carb Aldi Protein Lithuanian yogurt 15g protein & 7g carb Cheese each oz Brie 5.9g protein & 0.1g carb Cheddar Cheese 7g protein & 0.4g carb Mozzarella Cheese 6.3g protein & 0.6g carb Marcio Cheese 6.7g protein & 0.7g carb Parmesan Cheese 10g protein & 0.9g carb Cream Cheese 1.7g protein & 1.2g carb Feta 4g protein & 1.2g carb Kuwaiti Cheese 7.6g protein & 1.5g carb Goyal s Low Fat Cottage Cheese 1/2cup 12g protein & 4g carb Legumes Lentils cup 9g protein & 20g carb Ann beans cup 7g protein & 20g carb Kidney, Black, Lorane, Cannellini beans cup 8g protein & 20g carb Soybeans 1/2 c 14g protein & 8.5g carb Peanut butter, natural 2 Tbsp 7-8g protein & 4g net carbs, 190 calories PB2 powder 2 Tbsp 6g protein & 5g carb [place] milk, unsweetened 8 oz 1g protein & 2g carb Soy milk 8 oz 3.5g protein & 1.6g carb Tofu 1/2 cup 10g protein & 2.3g carb Nuts and Seeds per oz Pumpkin Seeds - 6.9g protein & 5g carb Almonds - 5.9g protein & 6.1g carb Price Seeds - 5.8g protein & 5.6g carb Pistachios - 5.8g protein & 7.8g carb Cashews - 5.1g protein & 9.2g carb Walnuts - 4.3g protein & 3.8g carb Hazelnuts - 4.2g protein & 4.7g carb [place] Nuts - 4.0g protein & 3.4g carb Pecans - 2.6g protein & 3.9g carb Peanuts - 7g protein & 4.6g carb <15 gram carb fruit options Berries have the lowest sugar content 1/2 cup diced honeydew melon - 8 carbs 1/2 cup diced watermelon - 6 carbs One half medium grapefruit - 10.5 carbs 1 medium orange -15.5 carbs 1 medium peach -14.5 carbs 1/2 cup fresh cranberries - 6.5 carbs 1 medium plum -7.5 carbs 1/2 cup raspberries -7.5 carbs 1 medium Erika -9 carbs 1/2 cup fresh pineapple -11 carbs 1 medium nectarine - 15 carbs 1/2 cup blueberries - 11 carbs - may actually help you lose weight 1 medium kiwi without skin - 11 carbs 1/2 cup fresh cherries -11 carbs 1 medium tangerine -12 carbs 1/2 cup sliced hollis -14 carbs 1/2 medium banana 1/2 c grapes 1/2 medium apple - 12.5 carbs 1/2 c strawberries - 12.7 carbs 5 (FIVE) gram carb vegetable options 1 cup raw OR cup cooked: Asparagus Cabbage Spinach Peppers Green beans Carrots Tomato Bethel Phipps sprouts Cauliflower Lettuce Snap peas Broccoli Eggplant Zucchini Turnips Spaghetti squash Brussel sprouts 15 gram carb vegetable options cup cooked green peas cup cooked corn or hominy corn on the cob, large (5 oz) cup cooked sweet potato, plain cup cooked potato, plain 1 small potato or sweet potato 1 cup winter squash (pumpkin, acorn, butternut) 1 cup marinara or pasta sauce - check label cup tomato juice cup tomato puree Beans, Seeds, Nuts cup cooked beans (kidney, dutton, red, green, etc.) cup cooked lentils cup baked beans 4 tablespoons nut butter Grains Brown rice 1/2 c 5.5g protein 24 carb White long-grain rice 1/2 c 2g protein 22.5 carb Quinoa 1/2 c 4 gm complete protein 25 carb Oatmeal, old fashioned 1/2 c 5g protein 27g carb 30 High Protein Snack Ideas 1. Jerky 2. [place] mix without dried fruit 3. Belle roll-ups 4. Lithuanian yogurt 5. Veggies and yogurt dip 6. Tuna 7. Hard-boiled eggs 8. Peanut butter with celery 9. Cheese slices/ Cheese Stick 10. Handful of almonds, peanuts or walnuts 11. Cottage Cheese 12. Beef sticks 13. Protein bars 14. Canned [place] 15. Pumpkin seeds 16. Nut butter 17. Protein shakes 18. Avocado and chicken salad 19. Egg muffins 20. Leftover protein or lunch meat 21. 1/2 c blended cottage cheese with 1 Tbsp sugar-free dry cheesecake pudding mix 12g protein 10 carb documented in this encounter [facility] 01-09-2024 History of Presen t illness Narrative Images from the original note were not included. Gayle Orona is a 58 year old female with obesity who presents for an initial evaluation of overweight/obesity to treat and prevent co-morbidities and is interested in behavioral. Motivation for seeking treatment for the disease of overweight/obesity: health-lower blood pressure Goal weight: 150 Lowest recall weight: 150's Highest recall weight: 206 Patient identified barriers to weight loss: knee replacement 01/2024 Weight History: She reports a family history of obesity and late adulthood weight gain. She states her weight gain is related to the following factors, including weight retention and onset of menopause. - Last Wt 01/09/24 : 206 lb (93.4 kg) 5% weight loss = 196 lbs, 10% weight loss = 185 lbs Matthews body weight: 109 lb 2.9 oz (49.5 kg) Adjusted ideal body weight: 147 lb 14.6 oz (67.1 kg) WEIGHT GRAPH: Diet/Nutrition overview: Awake - 0530 At 0630 - coffee with 1 T flavored creamer B - 0930 banana or another fruit and mcconnell tomato and sometimes croatian yogurt, water or diet green tea S - none L - 1200 - salad with cucumber, crouton and Ranch dressing, sometimes with 1-2 boiled eggs. Lately has added some shredded chicken or the chicken by itself S - none D - 6 pm - protein, potato/sweet potato/starchy veg and low carb veg - beets, green beans No dessert S - sometimes no salt pretzels or strawberries, SmartPop popcorn Occasional tiny piece of cake or almond M&M's Bedtime - asleep 2330 Fluids: coffee, water, diet green tea Quality of diet: 24hr recall suggests healthy diet. Characterization of diet:Structured. Medical Investigator of impaired eating habits:denies Eating Disorder no Cravings: crunchy foods Sleep: Duration: 6 hours, up 1-3 times to void. ANAID snoring ; CPAP NO - has sleep study ordered but needs to schedule Stress: Stress:yes , Cause:Work Obesity Related Comorbidities: Prior Weight Loss Surgery:No PAST MEDICAL HISTORY Diagnosis Date Hypertension Hypothyroid Other forms of migraine PAST SURGICAL HISTORY Procedure Laterality Date BREAST BIOPSY Left negative DILATION & CURETTAGE DX&/THER NONOBSTETRIC PAST SURGICAL HISTORY OF vein surgery PAST SURGICAL HISTORY OF 11/2010 vein ablation REMOVAL GALLBLADDER 01/2022 FAMILY HISTORY Problem Relation Age of Onset Hypertension Mother Heart Father [place] CHF HTH Breast Cancer Paternal Grandmother Social History Tobacco Use Smoking status: Never Smokeless tobacco: Never Vaping Use Vaping Use: Never used Substance Use Topics Alcohol use: Yes Comment: rarely Drug use: No Medications: no Weight Promoting Medications: no Diet/weight loss History: Past weight loss attempts? commercial diets. Weight watchers and intermit fasting Exercise: Regular exercise: no-not currently, in the past walked a lot Strength/resistance exercise:no Barriers to regular exercise? yes -waiting for right knee replacement-scheduled in january Work-related activity:Sedentary. 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 Central adiposity. SKIN: acanthosis nigricans no, Skin tags: yes Hirsutism: no HEENT: PERRL, No supraclavicular adiposity. No dorsal adiposity. RESPIRATORY: CBTA CARDIAC: RRR ABDOMEN: Protuberant ; EXTREMITIES: peripheral edema: Yes if on feet too long Results: reviewed with the patient No visits with results within 3 Month(s) from this visit. Latest known visit with results is: Office Visit on 12/18/2022 Component Date Value Ref Range Status GLUCOSE UA (POCT) 12/18/2022 Negative Negative mg/dL Final BILIRUBIN UA (POCT) 12/18/2022 Negative Negative Final KETONE UA (POCT) 12/18/2022 Negative Negative mg/dL Final SPECIFIC GRAVITY UA (POCT) 12/18/2022 1.015 1.005 - 1.030 Final HEMOGLOBIN/BLOOD UA (POCT) 12/18/2022 Negative Negative Final PH UA (POCT) 12/18/2022 7.0 4.5 - 8.0 Final PROTEIN UA (POCT) 12/18/2022 Negative Negative mg/dL Final UROBILINOGEN UA (POCT) 12/18/2022 0.2 Normal E.U./dL Final NITRITE UA (POCT) 12/18/2022 Negative Negative Final LEUKOCYTES UA (POCT) 12/18/2022 Negative Negative Final COLOR UA (POCT) 12/18/2022 Yellow Final CLARITY UA (POCT) 12/18/2022 Clear Final Impression: Gayle G Jason is a 58 year old Female with Class III obesity (Body mass index is 38.92 kg/m .) who has adult onset obesity with several periods of weight loss followed by weight gain . The causes of her obesity are multifactorial, biological, psychological and social and environmental. Specific factors include a genetic component related to a strong family of obesity, onset of menopause, and post weight retention. She has few weight-related medical comorbidities which increase her cardiovascular mortality risk. There are additional metabolic obesity complications including hypertension, suspected obstructive sleep apnea, and vitamin D deficiency. Other medical conditions as above. Regarding her lifestyle, as above, she has no significant behavioral contributors; her physical activity is non-existent. Overall, it is clear that her quality of life is mildly compromised by her weight. It is likely a combination of weight loss therapies will be needed. She appears motivated today. ASSESSMENT/PLAN: 1. Essential hypertension - ICD9: 401.9, ICD10: I10 (primary diagnosis) - Well-controlled with amlodipine - CMP 2. History of vitamin D deficiency - ICD9: V12.1, ICD10: Z86.39 - continue daily supplement - VIT D level 3. Screening cholesterol level - ICD9: V77.91, ICD10: Z13.220 - lipids ordered by PCP 4. Screening for deficiency anemia - ICD9: V78.1, ICD10: Z13.0 - CBC 5. Screening for diabetes mellitus - ICD9: V77.1, ICD10: Z13.1 - INSULIN ASSAY - HGB A1C - CMP 6. Screening for metabolic disorder - ICD9: V77.99, ICD10: Z13.228 - CMP 7. Screening for thyroid disorder - ICD9: V77.0, ICD10: Z13.29 - TSH 8. Encounter for vitamin deficiency screening - ICD9: V77.99, ICD10: Z13.21 - VIT D 9. Class 2 severe obesity with serious comorbidity and body mass index (BMI) of 38.0 to 38.9 in adult, unspecified obesity type (HCC) - ICD9: 278.01, V85.38, ICD10: E66.01, Z68.38 Plan: -- Based on the severity and resistance of the obesity/overweight with co-morbidities, I believe a combination of behavioral and pharmacological intervention is the best and most appropriate parts counterman therapeutic option. She prefers behavioral only - ALL LABS see above - WRITTEN order for [facility] -- We discussed several strategies to track food intake and increase mindfulness around eating while will decrease calorie intake. She was counseled on the following: Do not drink your calories 30 grams of protein for breakfast decreases your hunger during the day by up to 40 % Premier Protein or generic 30 gm protein 1 gm sugar Walk for 15 minutes immediately a meal. - Whole food low-carb diet with 30 g of protein 3 times a day and up to 30 g of carbs at lunch and dinner only. Meals - protein is a goal and carbohydrates are a limit Snacks - all protein or more protein than carbs Use tracking log as a worksheet and bring with you to your next appointment. -- Encouraged the patient to improve her physical activity. Although cardiovascular exercise is most beneficial for weight loss initially, we discussed healthy muscle from a combination of resistance training and cardiovascular exercise is the best detention plan. An overall goal of 150-200 minutes per week of exercise has been effective in weight loss and maintenance. -- Reviewed that monitoring weight daily and food intake can have a positive impact on overall weight loss and maintenance of weight loss. Activity tracking can be used to stay on target for exercise however should not be used to reward oneself She understands that there can be limitations of pharmacotherapy due to contraindications, side effects and cost. Patient was told to contact her insurance company to see what AOMs and supervised behavioral medical appointments are currently covered. Patient understands she will have more success when following a healthy lifestyle. We reviewed continued use of online tracking of daily weights, food journal and if desired physical activity. We reviewed that during management she is to report any concerning side effects of any pharmacotherapy she is placed on. She understands that she will need routine follow up in the office. Prior to any virtual visits in the future she will need to check her Blood pressure, weight, and pulse. -- follow-up visit in 4 weeks for management of above interventions Anna Baum CNP Advanced Education from the [employer] I spent a total of 74 minutes on the date of the service which included preparing to see the patient, [id number] patient care, completing clinical documentation, obtaining and/or reviewing separately obtained history, performing a medically appropriate examination, counseling and educating the patient/family/caregiver, and ordering medications, tests, or procedures. documented in this encounter [facility] 12-05-2023 Miscellaneous Notes Patient notified and voiced understanding of information and instructions below. Sandhya Wne RN Called patient and left voicemail to call back. Pelvic ultrasound benign, shows heterogenous echo texture which can be a sign of adenomyosis. Adenomyosis is typically painful. Breast imaging also benign. Recommend a well fitting bra, decrease caffeine/alcohol. Increase hydration. Recommend follow up with PCP about symptoms she was describing to me... feeling like something was caught in her rib. Follow up for annual exam. Gin Neely APRN.CNP documented in this encounter [facility] 12-05-2023 History of Presen t illness Narrative Radiology Service Progress Note PATIENT NAME: Gayle Orona DATE OF SERVICE: December 05, 2023 TIME: 11:00 AM PATIENT IDENTITY VERIFICATION COMPLETED USING TWO (2) IDENTIFIERS: Name and Date of confirmed by patient verbally. FALL SCREENING: Has the patient had 2 falls in the last year or 1 fall with injury or currently using an Ambulatory Assistive Device (Walker, Cane, Wheelchair, Crutches, etc.)? No PATIENT GENDER DATA: Female. status: : No status: NO. PATIENT RELEVANT IMPLANT DATA REVIEWED: Not Applicable PATIENT PRESENTS WITH AN IMPLANTABLE OR ATTACHED SAW STRAIGHTENER: No RADIOLOGY DEPARTMENT: Ultrasound PERIPHERAL IV DATA: Not applicable SIGNED BY: Naomi Pathak RDMS RVT December 05, 2023 11:00 AM documented in this encounter [facility] 12-05-2023 History of Presen t illness Narrative Radiology Service Progress Note PATIENT NAME: Gayle Orona DATE OF SERVICE: December 05, 2023 TIME: 10:13 AM PATIENT IDENTITY VERIFICATION COMPLETED USING TWO (2) IDENTIFIERS: Name and Date of confirmed by patient verbally. FALL SCREENING: Has the patient had 2 falls in the last year or 1 fall with injury or currently using an Ambulatory Assistive Device (Walker, Cane, Wheelchair, Crutches, etc.)? No PATIENT GENDER DATA: Female. status: : No status: NO. PATIENT RELEVANT IMPLANT DATA REVIEWED: Not Applicable PATIENT PRESENTS WITH AN IMPLANTABLE OR ATTACHED SAW STRAIGHTENER: No RADIOLOGY DEPARTMENT: Ultrasound PERIPHERAL IV DATA: Not applicable SIGNED BY: Pratima Smith RDMS December 05, 2023 10:13 AM documented in this encounter [facility] 12-05-2023 History of Presen t illness Narrative Radiology Service Progress Note PATIENT NAME: Gayle Orona DATE OF SERVICE: December 05, 2023 TIME: 8:31 AM PATIENT IDENTITY VERIFICATION COMPLETED USING TWO (2) IDENTIFIERS: Name and Date of confirmed by patient verbally. FALL SCREENING: Has the patient had 2 falls in the last year or 1 fall with injury or currently using an Ambulatory Assistive Device (Walker, Cane, Wheelchair, Crutches, etc.)? No PATIENT GENDER DATA: Female. status: : No status: NO. PATIENT RELEVANT IMPLANT DATA REVIEWED: Not Applicable PATIENT PRESENTS WITH AN IMPLANTABLE OR ATTACHED SAW STRAIGHTENER: No RADIOLOGY DEPARTMENT: Mammography PERIPHERAL IV DATA: Not applicable SIGNED BY: Jamal Bradyo Mitzy December 05, 2023 8:31 AM documented in this encounter [facility] 07-04-2023 Discharge summary Note Date/Time July 04, 2023 1:07pm [facility] Medical Records Department [address] [place] [address] Emergency Department Summary 07/04/23 MR#: [id number] Acct: [id number] Name: GAYLE ORONA Rep #:[id number] : 1965 57 From: Gabo Car DO PCP: Dr. Andreas Montilla MD Status:PRE E R Location: ED HPI History of Present Illness Chief Complaint: Hypertension Narrative Narrative: -year-old female presenting with tachycardia sensation. She has history of SVT and felt palpitations last night. Has no palpitations today. She states that in the past this has been a problem and when her heart rate feels like it is racing usually her potassium is low. Patient states that Dr. Ambrocio puts her on spironolactone to improve the potassium problem. Patient states that it feels like it is burning in her chest. Worse, chills, cough. She does not feel ill. She notes that her blood pressure is up today. She is currently on 10 of amlodipine. She states she was on a couple of other meds that they tried but itwas making her blood pressure dropped and was making her symptomatic. [facility] Medical History Acute maxillary sinusitis, unspecified Atrial tachycardia Biliary dyskinesia Cephalgia Chest pain Chest pain Chronic cholecystitis Chronic hip pain Chronic hypokalemia Contact with and (suspected) exposure to other viral communicable diseases Essential hypertension Hypertension Hypertensive urgency Hypothyroidism Iliotibial band syndrome of left side Left knee pain Pes anserinus bursitis of left knee Post-menopausal Sciatica Sciatica, left side Screening for intestinal cancer Thyroid disease Uncontrolled hypertension Home Medications potassium chloride 20 mEq tablet,extended release(part/cryst) 40 meq PO DAILY 05/10/21 [History Last Taken 01/23/22] albuterol sulfate 90 mcg/actuation aerosol inhaler (ProAir HFA) 2 puff inhalation Q4H PRN 03/06/23 [History Last Taken Unknown] amlodipine 10 mg tablet 10 mg PO DAILY 03/06/23 [History Last Taken Unknown] cholecalciferol (vitamin D3) 50 mcg (2,000 unit) tablet 50 mcg PO DAILY 03/06/23[History Last Taken Unknown] valacyclovir 1 gram tablet (Valtrex) 1,000 mg PO DAILY PRN 03/06/23 [History Last Taken Unknown] metoprolol succinate 50 mg tablet,extended release 24 hr (Toprol XL) 50 mg PO DAILY #60 tabs 04/11/23 [Rx Last Taken Unknown] levothyroxine 125 mcg tablet (Synthroid) 125 mcg PO DAILY 04/13/23 [History Last Taken Unknown] spironolactone 25 mg tablet 25 mg PO DAILY #90 tabs 04/19/23 [Rx Last Taken Unknown] Allergy/AdvReac Type Severity Reaction Status Date / Time ibuprofen Allergy Severe Throat Verified 07/04/23 12:48 Swelling neomycin Allergy Unknown Itching Verified 07/04/23 12:48 midazolam [From Versed] AdvReac Severe JITTERY, Verified 07/04/23 12:48 ANXIOUS, HYPER meloxicam AdvReac Mild Palpitation Verified 07/04/23 12:48 s clarithromycin [From Biaxin] AdvReac Unknown ALEGRIA, Verified 07/04/23 12:48 Diarrhea lisinopril AdvReac Unknown Cough Verified 07/04/23 12:48 losartan AdvReac Unknown Unknown Verified 07/04/23 12:48 ketorolac [From Toradol] AdvReac Other Verified 07/04/23 12:48 Family History Father Heart disease Grandfather Myocardial infarction Uncle Myocardial infarction Surgical History History of cholecystectomy History of vein stripping Hx of dilation and curettage Social History Smoking Status: Never smoker alcohol intake: current alcohol intake frequency: holidays/special occasions only substance use type: does not use ROS ROS ED Constitutional Constitutional ED: Denies chills, fever(s) or sweats Eyes Eyes: Denies blurry vision or change in vision ENT ENT ED: Denies ear pain or sore throat Cardiovascular Cardiovascular: Reports palpitations; Denies chest pain or racing heartbeat Respiratory/Chest Respiratory/Chest: Denies cough, dyspnea or sputum Gastrointestinal Gastrointestinal: Denies abdominal pain, constipation, diarrhea, nausea or vomiting Genitourinary Genitourinary ED: Denies dysuria, hematuria or urinary frequency Musculoskeletal Musculoskeletal: Denies arthralgias, myalgias or neck pain Integumentary Denies abscess, Abrasions or rash Neurologic Neurologic: Denies headache(s), paresthesias or weakness Psychiatric Psychiatric: Denies anxiety, depression, suicidal ideation or suicidal thoughts Endocrine Endocrinology: Denies polydipsia or polyuria EXAM Physical Exam Const Vital Signs: 07/04/23 12:48 07/04/23 13:10 07/04/23 13:10 Temperature 98.1 F Temperature Source Temporal Pulse Rate 77 83 Respiratory Rate 18 16 Respiratory Pattern Blood Pressure 169/72 H 163/82 H Blood Pressure Mean 104 109 Pulse Ox 100 96 96 Oxygen Delivery Method Room Air Room Air 07/04/23 13:11 Temperature Temperature Source Pulse Rate Respiratory Rate Respiratory Pattern Normal Blood Pressure Blood Pressure Mean Pulse Ox Oxygen Delivery Method Positive well nourished General Appearance ED: NAD; Negative for pallor HEENT Reports moist mucous membranes Eyes PERRL and EOMs intact bilaterally Chest Wall inspection of chest normal and palpation of chest normal Resp normal respiratory effort and clear to auscultation bilaterally Auscultation: Negative for rales, rhonchi or wheezes Cardio regular rate and regular rhythm GI normal to inspection, nondistended, normoactive bowel sounds Neuro oriented x3 and CN's II-XII intact bilaterally Sensorium / Orientation: alert Psych mental status grossly normal Skin no rashes or lesions noted General Skin Exam: Negative for jaundice or pallor MDM MDM MDM Narrative Medical decision making narrative: Presenting with palpitations. She has a history of SVT. Differential includes SVT, A-fib, sinus tachycardia, ACS, pneumonia. Considered PE however patient PERC negative. CBC was obtained to assess white blood cell count, hemoglobin, platelets and this is all normal. BMP shows normal renal function and electrolytes. Stable opponent is 6. Chest x-ray my interpretation shows no acute process. Radiology interprets this and agrees. EKG sinus rhythm with a ventricular rate of 71 bpm without sign of ischemic or ectopy on my interpretation. At this point I think the patient stable for discharge. I recommend she keep a blood pressure diary and follow-up with her primary care doctor or Dr. Ambrocio Impression: 1. Chest pain 2. Palpitations 3. Elevated blood pressure Lab Data Attestation: I reviewed the patient's lab results. Labs: Laboratory Results - last 24 hr 07/04/23 13:10 WBC 8.3 RBC 4.37 Hgb 13.0 Hct 39.7 MCV 90.8 MCH 29.7 MCHC 32.7 RDW Std Deviation 46.2 H RDW Coeff of Bisi 13.7 Plt Count 374 MPV 10.0 Immature Gran % (Auto) 0.400 Neut % (Auto) 67.6 Lymph % (Auto) 19.8 Ray % (Auto) 9.7 Eos % (Auto) 1.9 Baso % (Auto) 0.6 Absolute Neuts (auto) 5.6 Absolute Lymphs (auto) 1.65 Nucleated RBC % 0 Sodium 139 Potassium 3.8 Chloride 108 H Carbon Dioxide 26.0 Anion Gap 5 BUN 12 Creatinine 0.77 Estim Creat Clear Calc 60.83 Est GFR (MDRD) Af Amer 99 Est GFR (MDRD) Non-Af 82 BUN/Creatinine Ratio 15.6 Glucose 99 Calcium 9.5 Troponin I High Sens 6 Radiography Diagnostic Testing: Clinical Impression(s) from Imaging Studies Chest X-Ray 07/04/23 13:30 IMPRESSION: Borderline cardiomegaly. Electronically Signed: Enrique Mann MD at 13:53 EDT Reading Location ID and State: [address] [place] [address] , Service support , Discharge Plan Triage Chief Complaint: Hypertension ED Provider: Gabo Car Dx/Rx/DC Orders Prescriptions: No Action amlodipine 10 mg tablet 10 mg PO DAILY cholecalciferol (vitamin D3) 50 mcg (2,000 unit) tablet 50 mcg PO DAILY albuterol sulfate [ProAir HFA] 90 mcg/actuation HFA aerosol inhaler 2 puff inhalation Q4H PRN valacyclovir [Valtrex] 1 gram tablet 1,000 mg PO DAILY PRN potassium chloride 20 mEq tablet,ER particles/crystals 40 meq PO DAILY Patient Comments: TAKE 2 TABLETS BY MOUTH ONCE DAILY metoprolol succinate [Toprol XL] 50 mg tablet extended release 24 hr 50 mg PO DAILY Qty: 60 3RF levothyroxine [Synthroid] 125 mcg tablet 125 mcg PO DAILY spironolactone 25 mg tablet 25 mg PO DAILY Qty: 90 3RF Primary Care Provider: Andreas Montilla Referrals: Andreas Montilla MD [Primary Care Provider] - What to do if you have Problems For any increased pain, shortness of breath, bleeding, nausea or vomiting, chestpain, or any unexpected problems, contact your Primary Care Provider. Call [facility] ([phone]) or report to the closest Emergency Room. Call 911 if necessary. 07/04/23 9412 <Electronically signed by Gabo Car DO> Cosigner Signature (if applicable): CC: Dr. Andreas Montilla MD ~ Signed [facility] Work Phone: [phone] Andrew [facility] December 28, 2022 7:16pm Note Date/Time December 28, 2022 5:58 pm [facility] Medical Records Department [address] [place] [address] Emergency Department Summary 12/28/22 MR#: [id number] Acct: [id number] Name: GAYLE ORONA Rep #:[id number] : 1965 57 From: Andreas OSORIO PCP: Dr. Andreas Montilla MD Status:REG E R Location: ED HPI <DEVON Rao - Last Filed: 12/28/22 19:09> History of Present Illness Chief Complaint: Chest Pain Narrative Narrative: Patient is a 57-year-old female with history of hypertension on amlodipine 10 mg, hypothyroidism, history of low potassium who presents to the emergency department with complaints of 1 week of palpitations, chest pressure, increasingblood pressure. Patient does have a follow-up appointment for her blood pressure tomorrow at [address] Montilla. Patient states that she called today to get in sooner however she is scared secondary to having a strong familyhistory of heart disease. She denies any diaphoresis, nausea or vomiting. [facility] <DEVON Rao - Last Filed: 12/28/22 19:09> [facility] Medical History (Updated 12/28/22 @ 19:[address] Jim Andrew MD) Biliary dyskinesia Cephalgia Chest pain Chronic cholecystitis Chronic hip pain Chronic hypokalemia Contact with and (suspected) exposure to other viral communicable diseases Hypertension Iliotibial band syndrome of left side Left knee pain Pes anserinus bursitis of left knee Post-menopausal Sciatica Sciatica, left side Thyroid disease Uncontrolled hypertension Home Medications amlodipine 5 mg tablet 10 mg PO DAILY 09/23/20 [History Last Taken 01/23/22] levothyroxine 112 mcg tablet 125 mcg PO DAILY 09/23/20 [History Last Taken 01/23/22] potassium chloride 20 mEq tablet,extended release(part/cryst) 40 meq PO DAILY 05/10/21 [History Last Taken 01/23/22] cholecalciferol (vitamin D3) 125 mcg (5,000 unit) capsule 125 mcg PO DAILY 11/20/22 [History Last Taken Unknown] Allergy/AdvReac Type Severity Reaction Status Date / Time midazolam [From Versed] AdvReac Severe JITTERY, Verified 12/28/22 17:10 ANXIOUS, HYPER meloxicam AdvReac Mild Palpitation Verified 12/28/22 17:10 s ketorolac [From Toradol] AdvReac Other Verified 12/28/22 17:10 Family History Father Heart disease Surgical History (Updated 12/28/22 @ 17:49 by Kelsey Leon) History of cholecystectomy History of vein stripping Hx of dilation and curettage Social History Smoking Status: Never smoker alcohol intake: current alcohol intake frequency: holidays/special occasions only substance use type: does not use ROS <DEVON Rao - Last Filed: 12/28/22 19:09> [facility] ROS Narrative Constitutional: Negative for fever, chills, weight loss, weakness Eyes: Negative for vision loss, vision change, double vision ENT: Negative for any sore throat, ear pain, congestion Cardiovascular: Negative for any chest pain. Positive chest tightness, palpitations Respiratory: Negative for any cough, sputum production, hemoptysis, dyspnea, dyspnea on exertion, orthopnea Gastrointestinal: Negative for any abdominal pain, nausea, vomiting, diarrhea, constipation, blood in stool, blood in vomit : Negative for any urinary frequency, dysuria, retention, blood in urine Muscle skeletal: Negative for any muscle joint pain, stiffness, myalgias, arthralgias, neck pain, back pain Neurological: Negative for any headache, syncope, numbness or tingling, dizziness Skin: Negative for any rashes, lumps, itching, abrasions, lacerations Psychiatric: Negative for any depression, suicidal ideation, homicidal ideation. Positive for increased anxiety and stress Hematologic: Negative for any easy bruising, excessive bruising, easy bleeding Allergies: Negative for any eczema, hives, rash EXAM <DEVON Rao - Last Filed: 12/28/22 19:09> Physical Exam Narrative Exam Narrative: Vital signs reviewed. HEET: Head normocephalic atraumatic, TMs clear bilaterally. Posterior pharynx is clear, moist mucous membranes. Nares clear bilaterally. Neck: Supple with no lymphadenopathy or tenderness. No signs of meningismus, negative jolt sign. Cardiac: Regular rate and rhythm no murmurs gallops or rubs, equal peripheral pulses bilaterally. Respiratory: Lungs clear to auscultation bilaterally. No chest tenderness. Abdomen: Soft, nontender, nondistended. No abdominal bruit or pulsatile masses. No hepatosplenomegaly Extremities: No peripheral edema, no signs of gross trauma or deformity. Activefull range of motion of all extremities. Neuro: Cranial nerves II through XII intact, no focal neurological deficits. Skin: Clean dry and intact with no rash, purpura, petechiae, vesicles or pustules. Backs/flank: No CVA tenderness, no midline spinal tenderness, no deformity. Psych: Normal mood and affect. No SI, HI or acute psychosis. Const Vital Signs: 12/28/22 17:10 12/28/22 17:41 Temperature 97.1 F L Temperature Source Temporal Pulse Rate 81 Respiratory Rate 16 Blood Pressure 191/99 H Blood Pressure Mean 129 Pulse Ox 96 Oxygen Delivery Method Room Air Room Air Positive well nourished and well developed General Appearance ED: well developed <Dr. Jim Andrew MD - Last Filed: 12/28/22 19:16> Physical Exam Const Vital Signs: 12/28/22 17:10 12/28/22 17:41 Temperature 97.1 F L Temperature Source Temporal Pulse Rate 81 Respiratory Rate 16 Blood Pressure 191/99 H Blood Pressure Mean 129 Pulse Ox 96 Oxygen Delivery Method Room Air Room Air MDM <DEVON Rao - Last Filed: 12/28/22 19:09> MDM Lab Data Labs: Laboratory Results - last 24 hr 12/28/22 12/28/22 12/28/22 17:40 17:40 17:40 WBC 9.5 RBC 4.56 Hgb 13.6 Hct 41.7 MCV 91.4 MCH 29.8 MCHC 32.6 RDW Std Deviation 45.3 H RDW Coeff of Bisi 13.5 Plt Count 385 MPV 10.2 Immature Gran % (Auto) 0.400 Neut % (Auto) 65.1 Lymph % (Auto) 22.9 Ray % (Auto) 9.7 Eos % (Auto) 1.2 Baso % (Auto) 0.7 Absolute Neuts (auto) 6.2 Absolute Lymphs (auto) 2.17 Nucleated RBC % 0 Sodium 141 Potassium 3.3 L Chloride 106 Carbon Dioxide 27.0 Anion Gap 8 BUN 11 Creatinine 0.66 Estim Creat Clear Calc 70.97 Est GFR (MDRD) Af Amer 119 Est GFR (MDRD) Non-Af 98 BUN/Creatinine Ratio 16.7 Glucose 94 Calcium 9.5 Troponin I High Sens 8 B-Natriuretic Peptide 22.1 TSH 3.25 Radiography Diagnostic Testing: Clinical Impression(s) from Imaging Studies Chest X-Ray 12/28/22 17:50 IMPRESSION: No radiographic evidence of acute cardiopulmonary disease. Electronically Signed: Jez Tee MD at 18:25 EST , EKG Normal sinus rhythm: Attestation: I personally reviewed and interpreted this EKG as follows: Comments: EKG reviewed by ER physician, shows a rate of 73 bpm WY [id number] ms, QRS duration 82 ms, no acute ST elevation, no acute infarct noted Differential Diagnosis Chest pain/SOB: ACS, pneumothorax and pneumonia Treatment and Re-Evaluation :: Patient appears well, patient appears nontoxic, vital signs are stable. Patientpresents to the emergency department with 1 week of chest pressure, elevated blood pressure. Patient's blood pressure was elevated, 191/99. Patient does have an appointment with her PCP tomorrow morning. Patient did receive a full cardiac work-up. Patient's chest x-ray showed no acute evidence of cardiopulmonary disease. EKG was unremarkable, no elevation or ectopy. Patient's laboratory studies showed a normal TSH, negative troponin, potassium only slightly low at 3.3 however this is baseline for the patient looking back from August 2021. Patient CBC was unremarkable. Patient did receive a GI cocktail with minimal relief. At this time, there is no evidence to suspect anyACS, [place], pneumonia. Patient does have elevated blood pressure however this willbe managed by her PCP tomorrow morning around 9 AM. At this time, do believe patient is safe for discharge. I had a long conversation with the patient as well as with the patient's . Everyone is on the same page, they would like to go home and follow-up outpatient. The patient is happy with the plan ofcare and is stable for discharge. Patient and were given return precaution. <Dr. Jim Andrew MD - Last Filed: 12/28/22 19:16> [facility] Lab Data Attestation: I reviewed the patient's lab results. Labs: Laboratory Results - last 24 hr 12/28/22 12/28/22 12/28/22 17:40 17:40 17:40 WBC 9.5 RBC 4.56 Hgb 13.6 Hct 41.7 MCV 91.4 MCH 29.8 MCHC 32.6 RDW Std Deviation 45.3 H RDW Coeff of Bisi 13.5 Plt Count 385 MPV 10.2 Immature Gran % (Auto) 0.400 Neut % (Auto) 65.1 Lymph % (Auto) 22.9 Ray % (Auto) 9.7 Eos % (Auto) 1.2 Baso % (Auto) 0.7 Absolute Neuts (auto) 6.2 Absolute Lymphs (auto) 2.17 Nucleated RBC % 0 Sodium 141 Potassium 3.3 L Chloride 106 Carbon Dioxide 27.0 Anion Gap 8 BUN 11 Creatinine 0.66 Estim Creat Clear Calc 70.97 Est GFR (MDRD) Af Amer 119 Est GFR (MDRD) Non-Af 98 BUN/Creatinine Ratio 16.7 Glucose 94 Calcium 9.5 Troponin I High Sens 8 B-Natriuretic Peptide 22.1 TSH 3.25 Radiography Diagnostic Testing: Clinical Impression(s) from Imaging Studies Chest X-Ray 12/28/22 17:50 IMPRESSION: No radiographic evidence of acute cardiopulmonary disease. Electronically Signed: Jez Tee MD at 18:25 EST , Treatment and Re-Evaluation Comments:: Seen and evaluated independently and in conjunction with nurse practitioner. Agree with notes above unless documented otherwise. Patient with continuous waxing and waning chest pressure since last night. She states it was worse in the evening, but it has been present all day today, she presents around 5 or 6 PM with the discomfort persistently. No known history ofheart problems but she has been having high blood pressures lately. She has been on amlodipine for months, nothing else for blood pressure has an appointment tomorrow. Pressure elevated when she first arrived 190s, however without treating it, she was in the 150s later. Denies any obvious symptoms of acid reflux, but since her cholecystectomy she has been having right upper abdominal discomfort especially after meals. Exam: RRR no murmur, CTAB, well-appearing no distress no calf tenderness. EKG normal, troponin negative. I do not think she needs more measurements emergently or needs to be admitted for this discomfort. We discussed possible esophageal etiologies, we discussed her blood pressure potentially being relatedbut that is unknown. Agree with her following up for continued evaluation and treatment of her blood pressure and the symptoms. Discharge Plan Triage Chief Complaint: Chest Pain ED Midlevel Provider: Andreas Randall ED Provider: Jim Andrew Dx/Rx/DC Orders Clinical Impression: Chest pain, Hypertension, Heart palpitations Instructions: Controlling High Blood Pressure, ED Palpitations Prescriptions: No Action levothyroxine 112 mcg tablet 125 mcg PO DAILY Rx Instructions: once weekly double dose amlodipine 5 mg tablet 10 mg PO DAILY Label Comments: TAKE 1 TABLET BY MOUTH AT BEDTIME cholecalciferol (vitamin D3) 125 mcg (5,000 unit) capsule 125 mcg PO DAILY potassium chloride 20 mEq tablet,ER particles/crystals 40 meq PO DAILY Label Comments: TAKE 2 TABLETS BY MOUTH ONCE DAILY Primary Care Provider: Andreas Montilla Referrals: Andreas Montilla MD [Primary Care Provider] - Activity Restrictions/Additional Instructions: Keep your appointment at 9 AM tomorrow Disposition Disposition: Home, Self Care What to do if you have Problems For any increased pain, shortness of breath, bleeding, nausea or vomiting, chestpain, or any unexpected problems, contact your Primary Care Provider. Call [facility] ([phone]) or report to the closest Emergency Room. Call 911 if necessary. 12/28/22 2280 <Electronically signed by Andreas Randall HEARING STENOGRAPHER-C> Cosigner Signature (if applicable): 12/28/22 1916 <Electronically signed by Jim Andrew MD> CC: Dr. Andreas Montilla MD ~ Signed [facility] Work Phone: 1(449) 577-894202-20-2023 Miscellaneous Notes* Letter - Mammography Coordinator - 12/11/2022 9:25 AM EST December 12, 2022 PID: [id number] Gayle Orona [address] [place] [address] [place] [address] Dear Ms. Orona, We are pleased to inform you that the results of your recent breast imaging exam on 12/08/2022 are normal. Early detection of cancer is very important. We also understand recommendations regarding breast cancer screening are controversial. Please discuss with your primary care provider which strategy is best for you and whether a mammogram is right for you. Your imaging studies and report will be kept on file at [facility] as part of your permanent medical record and are available for your continuing care. Thank you for allowing us to help in meeting your health care needs. Sincerely, Dr. Aguila Interpreting Radiologist [facility] (Normal over 40) [facility] History of Present illness Narrative* Radha Kovacs MD - 11/14/2022 3:43 PM EST Anode Rebuilder offered: Patient declinesHector Araujo is a 57 year old who presents for an annual gynecologic exam. Postmenopausal: Yes Last Pap: 11/15/2021 normal HPV: 11/11/2021 negative History of abnormal pap: Yes - OLAMIDE with negative HPV 2016 Last mammogram: 2020 normal OB History T0 L3 SAB1 IAB0 Ectopic0 Multiple0 Live Births0 Comment: 3 vaginal deliveries 1 D&C for missed ab Overhead Door Technician History LMP: 06/10/2017, Postmenopausal Age at Menarche: Age at First : Age at Menopause: Overhead Door Technician History Comments: Sexual Activity: Yes; Male Contraception: No contraception data on record PAST MEDICAL HISTORY Diagnosis Date Hypertension Hypothyroid Other forms of migraine PAST SURGICAL HISTORY Procedure Laterality Date BREAST BIOPSY negative DILATION & CURETTAGE DX&/THER NONOBSTETRIC PAST SURGICAL HISTORY OF vein surgery PAST SURGICAL HISTORY OF 11/2010 vein ablation REMOVAL GALLBLADDER 01/2022 FAMILY HISTORY Problem Relation Age of Onset Hypertension Mother Heart Father OH CHF HTH Breast Cancer Paternal Grandmother SOCIAL HISTORY Social History Tobacco Use Smoking status: Never Smokeless tobacco: Never Vaping Use Vaping Use: Never used Substance Use Topics Alcohol use: Yes Comment: rarely Drug use: No REVIEW OF SYSTEMS Abdomen: No abdominal pain, nausea, vomiting, diarrhea, or constipation. No bloating, early satiety, indigestion, or increased flatulence. Bladder: positive urinary frequency, occasional urge incontinence Breast: No breast lumps, nipple d/c, overlying skin changes, redness or skin retraction Allergies and current medication updated:Yes EXAM: LMP 06/10/2017 GENERAL: pleasant, female in no apparent distress BREAST: soft, non-tender, symmetric, no dominant mass, normal nipple-areolar complex, no lymphadenopathy, and no nipple discharge CHEST: Normal inspiratory effort ABDOMEN: soft, non-tender, and no masses PELVIC: external genitalia normal, no vulvar lesions, no cervical lesions, normal appearing perineal body and perianal region; uterovaginal prolapse BIMANUAL: uterus normal size, shape and consistency, no adnexal masses, and non-tender RECTOVAGINAL: deferred. NEURO: alert and oriented x3,exam grossly non-focal EXTREMITIES: normal ASSESSMENT/PLAN: 1) Health maintenance: Pap/HPV up to date. Mammogram ordered Nutrition, exercise and routine health maintenance exams reviewed. Colon cancer screening: patient to discuss with PCP 2) Follow up one year or sooner as needed 3) Uterovaginal prolapse - consult to urogyn as patient interested in proceeding with further evaluation. Radha Kovacs MD documented in this encounterPueblo ClinicDischarge summary Author Khanh Smith [facility] September 12, 2023 4:11am Note Date/Time September 12, 2023 2:51am [facility] Medical Records Department [address] [place] [address] Emergency Department Summary 09/12/23 MR#: [id number] Acct: [id number] Name: GAYLE ORONA Rep #:[id number] : 1965 58 From: Khanh Smith MD PCP: Dr. Andreas Montilla MD Status:REG E R Location: ED HPI History of Present Illness Chief Complaint: Lower Extremity Injury Narrative Narrative: 58-year-old female past medical history of hypertension, states she is always had problems with pain in her knees, last saw an orthopedic surgeon years ago because she has 4 or 5 cysts in her right knee, presents with increasing pain in her right knee on the medial aspect. Its worse with weightbearing and walking. She relates history that this past weekend, approximately 4 to 5 days ago, she was going up and down a ladder. The following day today's, she gets pain with weightbearing and now any sort of pressure with standing causes her pain diffusely throughout her right knee. She denies any fall or trauma to the area. No other symptoms, no fever or chills, no chest pain or shortness of breath. [facility] Medical History (Updated 09/12/23 @ 04:08 by Khanh Smith MD) Acute maxillary sinusitis, unspecified Atrial tachycardia Biliary dyskinesia Cephalgia Chest pain Chest pain Chronic cholecystitis Chronic hip pain Chronic hypokalemia Contact with and (suspected) exposure to other viral communicable diseases Essential hypertension Hypertension Hypertensive urgency Hypothyroidism Iliotibial band syndrome of left side Left knee pain Migraines Pes anserinus bursitis of left knee Post-menopausal Sciatica Sciatica, left side Screening for intestinal cancer Thyroid disease Uncontrolled hypertension Home Medications potassium chloride 20 mEq tablet,extended release(part/cryst) 40 meq PO DAILY 05/10/21 [History Last Taken 01/23/22] albuterol sulfate 90 mcg/actuation aerosol inhaler (ProAir HFA) 2 puff inhalation Q4H PRN wheezing 03/06/23 [History Last Taken Unknown] amlodipine 10 mg tablet 10 mg PO DAILY 03/06/23 [History Last Taken Unknown] cholecalciferol (vitamin D3) 50 mcg (2,000 unit) tablet 50 mcg PO DAILY 03/06/23[History Last Taken Unknown] valacyclovir 1 gram tablet (Valtrex) 1,000 mg PO DAILY PRN FLAIR 03/06/23 [History Last Taken Unknown] spironolactone 25 mg tablet 25 mg PO DAILY #90 tabs 04/19/23 [Rx Last Taken Unknown] levothyroxine 125 mcg tablet (Synthroid) 150 mcg PO DAILY 07/06/23 [History Last Taken Unknown] oxycodone 5 mg tablet 5 mg PO Q6H PRN pain 3 days #12 tabs 09/12/23 [Rx Last Taken Unknown] Allergy/AdvReac Type Severity Reaction Status Date / Time ibuprofen Allergy Severe Throat Verified 07/06/23 10:03 Swelling neomycin Allergy Unknown Itching Verified 07/06/23 10:03 midazolam [From Versed] AdvReac Severe JITTERY, Verified 07/06/23 10:03 ANXIOUS, HYPER meloxicam AdvReac Mild Palpitation Verified 07/06/23 10:03 s clarithromycin [From Biaxin] AdvReac Unknown ALEGRIA, Verified 07/06/23 10:03 Diarrhea lisinopril AdvReac Unknown Cough Verified 07/06/23 10:03 losartan AdvReac Unknown Unknown Verified 07/06/23 10:03 ketorolac [From Toradol] AdvReac Other Verified 07/06/23 10:03 Family History Father Heart disease Grandfather Myocardial infarction Uncle Myocardial infarction Surgical History History of cholecystectomy History of vein stripping Hx of dilation and curettage Social History Smoking Status: Never smoker alcohol intake: current alcohol intake frequency: holidays/special occasions only substance use type: does not use ROS ROS ED ROS Narrative Constitutional: No fever, no chills. HEENT: No sore throat. No neck pain. No loss of vision. No rhinorrhea. Cardiovascular: No chest pain. No palpitations. No pedal edema. Respiratory: No cough, no shortness of breath. Abdominal: No abdominal pain. No nausea. No vomiting. Genitourinary: No dysuria. No hematuria. Musculoskeletal: No myalgias. Right medial knee pain, worse with weightbearing and walking, and with flexion and extension of right knee. Neurologic: No headaches. No dizziness. No lightheadedness. Skin: No rash. No change in color. Psychiatric: No depression. No anxiety. EXAM Physical Exam Narrative Exam Narrative: Afebrile. Vital signs noted. Cute distress. HEENT: Normocephalic. Atraumatic. PERRL, EOMI. Cardiovascular: Regular rate and rhythm. No murmurs, rubs, or gallops appreciated. Respiratory: No tachypnea. Lungs clear to auscultation bilaterally. Gastrointestinal: Abdomen soft, nontender, with normoactive bowel sounds. No rebound or guarding. Neurological: Awake. Alert. Nonfocal, nonlateralizing. Skin: No rash. Normal color. No pallor. Musculoskeletal: No pedal edema. Right medial knee tenderness along medial meniscal line, flexion and extension mechanism intact. No palpable cord. EHL intact, right leg. Palpable dorsalis pedis pulse, right. Const Vital Signs: 09/12/23 02:35 Temperature 97.7 F L Temperature Source Oral Pulse Rate 77 Respiratory Rate 16 Blood Pressure 181/78 H Blood Pressure Mean 112 Pulse Ox 98 Oxygen Delivery Method Room Air MDM MDM MDM Narrative Medical decision making narrative: Differential diagnosis is medial collateral ligament strain versus internal derangement of right knee including medial meniscal cartilage tear. I have lower suspicion for DVT, but she does have pain medially. Additionally, the cyst of which she spoke could have been a Escobedo's cyst, and her pain could be from Escobedo's cyst rupture as well. I have very low suspicion for septic arthritis as the treating physical is not supportive of this diagnosis. Ultrasound is unavailable at this time. I will write her an outpatient prescription for an ultrasound to be performed tomorrow. I do not feel any laboratory work is indicated. I will obtain x-rays of the right knee and 4 views, and she was given oxycodone 5 mg orally for analgesia as she has multipleallergies to nonsteroidal anti-inflammatories. I discussed with her follow-up with [facility] that she has seen them in the past, but she states she is also seeing a spine surgeon. I reviewed her x-rays and interpreted them independently of the right knee and 4 views which shows no evidence of an acute fracture, there is a small right knee effusion indicating to me that there may be an internal derangement. I reviewed the radiology report which comments on mild multicompartmental degenerative changes especially involving the patellofemoral joint and does mention a slight joint effusion. At this point in time, upon repeat examination after oxycodone 5 mg orally here, she is feeling more relaxed. She will be placed in an [place] wrap. I feel she can be more weightbearing as tolerated. She and her state that they have crutches at home. Additionally, I did discuss with the patient and her observation for PT BRADY rebolledo as she states she is having difficulty ambulating and has pain with pressure and standing, but she declined stating she would like to go home and did not want placement in rehabilitation or penitentiary facility. I feel she can be discharged safely home to follow-up with [facility] and/or her primary care provider. Return instructions to the emergency department were reviewed. She was written a prescription for an ultrasound of the right lower extremity which you was told she should have tomorrow. Disposition is discharged home in stable condition. History & Record Review Discussion w/independent historian: Patient Additional record(s) reviewed:: Prior ED visit Radiography Diagnostic Testing: Clinical Impression(s) from Imaging Studies Knee X-Ray 09/12/23 02:44 IMPRESSION: Mild multi compartmental degenerative changes, especially involving the patellofemoral joint. Slight joint effusion. Electronically Signed: Lucie Patel MD at 3:41 EST , Discharge Plan Triage Chief Complaint: Lower Extremity Injury ED Provider: Khanh Smith Dx/Rx/DC Orders Clinical Impression: Knee effusion, right, Acute pain of right knee Instructions: ED Knee Pain of Uncertain Cause, ED Knee Effusion Prescriptions: New oxycodone 5 mg tablet 5 mg PO Q6H PRN (Reason: pain) 3 Days Qty: 12 0RF No Action amlodipine 10 mg tablet 10 mg PO DAILY cholecalciferol (vitamin D3) 50 mcg (2,000 unit) tablet 50 mcg PO DAILY albuterol sulfate [ProAir HFA] 90 mcg/actuation HFA aerosol inhaler 2 puff inhalation Q4H PRN (Reason: wheezing) valacyclovir [Valtrex] 1 gram tablet 1,000 mg PO DAILY PRN (Reason: FLAIR) potassium chloride 20 mEq tablet,ER particles/crystals 40 meq PO DAILY Patient Comments: TAKE 2 TABLETS BY MOUTH ONCE DAILY spironolactone 25 mg tablet 25 mg PO DAILY Qty: 90 3RF levothyroxine [Synthroid] 125 mcg tablet 150 mcg PO DAILY Other Ambulatory Orders: Venous Duplex US, Unilateral (Stat) Facility: [facility] - Location: [facility] Ordered By: Khanh Smith Primary Care Provider: Andreas Montilla Referrals: Ezequiel Kumar DO [Med Staff - Active Staff] - 1 Week if not improving Andreas Montilla MD [Primary Care Provider] - As soon as possible Activity Restrictions/Additional Instructions: Have the ultra sound of your right lower extremity performed tomorrow. Medication as directed. Continue ice and elevation of your right knee when possible. Follow-up with [facility] who you have seen in the past. Return with fever, redness to right knee, new or worsening symptoms. Disposition Disposition: Home, Self Care What to do if you have Problems For any increased pain, shortness of breath, bleeding, nausea or vomiting, chestpain, or any unexpected problems, contact your Primary Care Provider. Call [facility] ([phone]) or report to the closest Emergency Room. Call 911 if necessary. 09/12/23410 <Electronically signed by Khanh Smith MD> Cosigner Signature (if applicable): CC: Dr. Andreas Montilla MD ~ Signed [facility] Work Phone: Evaluation note* Diagnosis Onset Date Resolution Status Biliary dyskinesia acute Screening for intestinal cancer acute Biliary dyskinesia acute [facility] Work Phone: Evaluation note* Diagnosis Onset Date Resolution Status Cephalgia acute Contact with and (suspected) exposure to other viral communicable diseases acute Uncontrolled hypertension ac damaris [facility] Work Phone: Evaluation note* Diagnosis Encounter for gynecological examination (general) (routine) without abnormal findings- Primary Dense breast tissue Incomplete uterovaginal prolapse Uterovaginal prolapse, incomplete [facility] Diagnosis Onset Date Resolution Status Spondylolisthesis of lumbosacral region acute [facility] Work Phone: Evaluation note* Diagnosis Onset Date Resolution Status Acute maxillary sinusitis, unspecified acute Atrial tachycardia acute Chest pain acute Essential hypertension acute [facility] Work Phone: Evaluation note* Diagnosis Onset Date Resolution Status Atrial tachycardia acute Chest pain acute Essential hypertension acute Hypersomnolence acute [facility] Work Phone: Evaluation note* Diagnosis Mastalgia Mastodynia [facility] [place] [facility]* Diagnosis Abdominal bloating Flatulence, eructation, and gas pain documented in this encounter [facility] note* Diagnosis Mastalgia Mastodynia documented in this encounter [facility] note* Diagnosis Essential hypertension- Primary Unspecified essential hypertension History of vitamin D deficiency Personal history of nutritional deficiency Screening cholesterol level Screening for lipoid disorders Screening for deficiency anemia Screening for other and unspecified deficiency anemia Screening for diabetes mellitus Screening for metabolic disorder Screening for thyroid disorder Encounter for vitamin deficiency screening Screening for other and unspecified endocrine, nutritional, metabolic, and immunity disorders Class 2 severe obesity with serious comorbidity and body mass index (BMI) of 38.0 to 38.9 in adult, unspecified obesity type (HCC) documented in this encounter [facility] [place] [facility]* Diagnosis Onset Date Resolution Status Atrial tachycardia acute Essential hypertension acute Hypersomnolence acute [facility] Work Phone: Evaluation note* Diagnosis Encounter for screening mammogram for breast cancer- Primary Encounter for gynecological examination (general) (routine) without abnormal findings Cervical cancer screening Screening for malignant neoplasm of the cervix Special screening examination for human papillomavirus (HPV) documented in this encounter [facility] noteNo assessment information [facility] Work Phone: Hospital Discharge instructions Additional Instructions Keep your appointment at 9 AM [facility] Work Phone: Hospital Discharge instructions Additional Instructions Have the ultra sound of your right lower extremity performed tomorrow. Medication as directed. Continue ice and elevation of your right knee when possible. Follow-up with [place] [facility] who you have seen in the past. Return with fever, redness to right knee, new or worsening symptoms.[facility] Work Phone: Reason for referral (narrative)* Diagnostic Procedure Only (Routine) - Closed Specialty Diagnoses / Procedures Referred By Kris gonsalez Referred To Contact [facility] IMAGING Diagnoses Abdominal bloating Procedures US FEMALE PELVIS TRANSVAG US TRANSVAGINAL Gin Neely APRN.[address] [place] [address] [facility] [address] Referral ID Status Reason Start Date Expiration Date V isits Requested Visits Authorized [id number] Closed Auto-Generate d Referral 11/21/2023 12/20/2024 1 1 [facility] for referral (narrative)* Diagnostic Procedure Only (Routine) - Closed Specialty Diagnoses / Procedures Referred By Kris gonsalez Referred To Contact [facility] Diagnoses Mastalgia Procedures US BREAST LTD RIGHT US BREAST UNI REAL TIME WITH IMAGE LIMITED Gin Neely APRN.CNP [address] [place] [address] [facility] [address] [place] [address] Referral ID Status Reason Start Date Expiration Date V isits Requested Visits Authorized [id number] Closed Auto-Generate d Referral 11/21/2023 12/20/2024 1 1 [facility] for referral (narrative)* Diagnostic Procedure Only (Routine) - New Request Specialty Diagnoses / Procedures Referred By Kris gonsalez Referred To Contact [facility] IMAGING Diagnoses Encounter for screening mammogram for breast cancer Procedures SHAMEKA SCREENING W MERRICK SCREENING DIGITAL BREAST TOMOSYNTHESIS BI SCREENING MAMMOGRAPHY BI 2-VIEW BREAST INC Radha Mcneil MD [address] [place] [address] [facility] [address] [place] [address] Referral ID Status Reason Start Date Expiration Date Visits Requested Visits Authorized [id number] New Request Auto-Generat ed Referral 06/10/2024 07/10/2025 1 1 [facility] for referral (narrative)No reason for referral information availableWCh[facility] Work Phone: Reason for visit Narrative* Diagnostic Procedure Only (Routine) - Closed Specialty Diagnoses / Procedures Referred By Kris gonsalez Referred To Contact BR IMAGING Diagnoses Mastalgia Procedures SHAMEKA DIAGNOSTIC BILATERAL DIAGNOSTIC MAMMOGRAPHY COMPUTER-AIDED DETCJ DAVIS Florinda Gin, CARDIAC RN.NAVIGATING OFFICER [address] [place] [address] [facility] [address] [place] [address] Referral ID Status Reason Start Date Expiration Date V isits Requested Visits Authorized [id number] Closed Auto-Generate d Referral 11/21/2023 12/20/2024 1 1 [facility] Chief Complaint and Reason for Visit Chief Complaint ACUTE CHOLECYSTITIS RUQ PAIN LEFT KNEE/HIP GALLBLADDER LAP RACHEL W IOC LAP RACHEL W IOC Reason for Visit Biliary dyskinesia Screening for intestinal cancer Biliary dyskinesia Chief Complaint ALEGRIA LUMBAR RAD Reason for Visit Cephalgia Contact with and (suspected) exposure to other viral communicable diseases Uncontrolled hypertension Chief Complaint LUMBAR RAD LUMBER SPINE Rm 3 xray CHEST PAIN/HIGH BP Reason for Visit Spondylolisthesis of lumbosacral region Chief Complaint CHEST PAIN/HIGH BP Amb Documentation CONCERN FOR SINUS INFECTION/COUGH/CONGESTION CP/ ATRIAL TACHYCARDIA (MONTILLA) E ORDERS Reason for Visit Acute maxillary sinu sitis, unspecified Atrial tachycardia Chest pain Essential hypertension Chief Complaint CHEST PAIN/HIGH BP Amb Documentation CONCERN FOR SINUS INFECTION/COUGH/CONGESTION CP/ ATRIAL TACHYCARDIA (MONTILLA) E ORDERS TACHYCARDIA Reason for Visit Acute maxillary sinu sitis, unspecified Atrial tachycardia Chest pain Essential hypertension Chief Complaint Amb Documentation CONCERN FOR SINUS INFECTION/COUGH/CONGESTION CP/ ATRIAL TACHYCARDIA (MONTILLA) E ORDERS TACHYCARDIA Reason for Visit Acute maxillary sinu sitis, unspecified Atrial tachycardia Chest pain Essential hypertension Chief Complaint Amb Documentation CONCERN FOR SINUS INFECTION/COUGH/CONGESTION CP/ ATRIAL TACHYCARDIA (MONTILLA) E ORDERS TACHYCARDIA HTN Reason for Visit Acute maxillary sinu sitis, unspecified Atrial tachycardia Chest pain Essential hypertension Chief Complaint TACHYCARDIA HTN 3 M FU I10 Essential (primary) hypertension Amb Documentation R07.9 R07.9 Amb Documentation Reason for Visit Atrial tachycardia Chest pain Essential hypertension Hypersomnolence Chief Complaint HTN 3 M FU I10 Essential (primary) hypertension Amb Documentation R07.9 R07.9 Amb Documentation KNEE PAIN Reason for Visit Atrial tachycardia Chest pain Essential hypertension Hypersomnolence Chief Complaint HTN 3 M FU I10 Essential (primary) hypertension Amb Documentation R07.9 R07.9 Amb Documentation KNEE PAIN PAIN IN RIGHT LOWER LEG Reason for Visit Atrial tachycardia Chest pain Essential hypertension Hypersomnolence Chief Complaint 3 M FU 2 ORDERING DRS ELADIA/WHITLEY Unilateral primary osteoarthritis, right knee MARCE Reason for Visit Atrial tachycardia Essential hypertension Hypersomnolence Advance Directives No Advanced Directives Records Found Advance Directive Response Recorded Date/ Time Living Will No December 28, 2021 1:05pm Power of Farmworker Animal No December 28 2 1:05pm Advance Directive Response Recorded Date/ Time Living Will No December 28, 2021 12:05pm Power of Farmworker Animal No December 28 2 12:05pm Advance Directive Response Recorded Date/ Time Living Will No December 28, 2022 5:49pm Power of Farmworker Animal No December 28 3 5:49pm Advance Directive Response Recorded Date/ Time Living Will No December 28, 2022 6:49pm Power of Farmworker Animal No December 28 3 6:49pm Advance Directive Response Recorded Date/ Time Living Will No July 04, 2023 1:11pm Power of Farmworker Animal No June 1:11pm Advance Directive Response Recorded Date/ Time Living Will No September 12, 2 023 2:46am Power of Farmworker Animal No September 12, 2023 2:46am Advance Directive Response Recorded Date/ Time Living Will No September 12 2 023 3:46am Power of Farmworker Animal No September 12, 2023 3:46am Reason for Referral Specialty Diagnoses / Procedures Referred By Kris gonsalez Referred To Contact Diagnoses Incomplete uterovaginal prolapse Procedures CONSULT TO URO GYNECOLOGY OFFICE/OUTPATIENT NEW HIGH MDM 60-74 MINUTES Radha Kovacs MD [address] [place] [address] Referral ID Status Reason Start Date Expiration Date Visits Requested Visits Authorized [id number] Authorized PCP Requested Referral Auto-Generate d Referral 11/14/2022 11/14/2023 1 1 Specialty Diagnoses / Procedures Referred By Kris gonsalez Referred To Contact [facility] Diagnoses Dense breast tissue Procedures SHAMEKA SCREENING W MERRICK SCREENING DIGITAL BREAST TOMOSYNTHESIS BI SCREENING MAMMOGRAPHY BI 2-VIEW BREAST INC CAD Radha Kovacs MD [address] [place] [address] [facility] [address] [place] [address] Referral ID Status Reason Start Date Expiration Date Visits Requested Visits Authorized [id number] Pending Review Auto-Generat ed Referral 11/14/2022 12/14/2023 1 1 Family History No Family History Records Found Relationship Condition Age at Onset Recorded Date/T michael father Cardiac disease Unknown grandfather Myocardial infarction Unknown uncle Myocardial infarction Unknown Summary Purpose Additional Source Comments Goals (unrecognized section and content) Goals may be documented in a n alternate sectionGoals may be documented in an alternate sectionGoals may be documented in an alternate sectionGoals may be documented in an alternate sectionGoals may be documented in an alternate sectionGoals may be documented in an alternate sectionGoals may be documented in an alternate sectionGoals may be documented in an alternate sectionGoals may be documented in an alternate sectionGoals may be documented in an alternate sectionGoals may be documented in an alternate sectionGoals may be documented in an alternate sectionGoals may be documented in an alternate sectionGoals may be documented in an alternate sectionGoals may be documented in an alternate sectionGoals may be documented in an alternate sectionGoals may be documented in an alternate section Source Comments (unrecognize d section and content) In the event this informatio n is protected by the Federal Confidentiality of Alcohol and Drug Abuse Patient Records regulations: The Federal rules restrict any use of the information to criminally investigate or prosecute any alcohol or drug abuse patient.[facility] the event this information is protected by the Federal Confidentiality of Alcohol and Drug Abuse Patient Records regulations: The Federal rules restrict any use of the information to criminally investigate or prosecute any alcohol or drug abuse patient.[facility] the event this information is protected by the Federal Confidentiality of Alcohol and Drug Abuse Patient Records regulations: The Federal rules restrict any use of the information to criminally investigate or prosecute any alcohol or drug abuse patient.[facility] the event this information is protected by the Federal Confidentiality of Alcohol and Drug Abuse Patient Records regulations: The Federal rules restrict any use of the information to criminally investigate or prosecute any alcohol or drug abuse patient.[facility] the event this information is protected by the Federal Confidentiality of Alcohol and Drug Abuse Patient Records regulations: The Federal rules restrict any use of the information to criminally investigate or prosecute any alcohol or drug abuse patient.[facility] the event this information is protected by the Federal Confidentiality of Alcohol and Drug Abuse Patient Records regulations: The Federal rules restrict any use of the information to criminally investigate or prosecute any alcohol or drug abuse patient.[facility] the event this information is protected by the Federal Confidentiality of Alcohol and Drug Abuse Patient Records regulations: The Federal rules restrict any use of the information to criminally investigate or prosecute any alcohol or drug abuse patient.[facility] the event this information is protected by the Federal Confidentiality of Alcohol and Drug Abuse Patient Records regulations: The Federal rules restrict any use of the information to criminally investigate or prosecute any alcohol or drug abuse patient.[facility] Reason for Visit (unrecogniz ed section and content) Reason Comments Radiology US Specialty Diagnoses / Procedures Referred By Contac t Referred To Contact BR IMAGING Diagnoses Mastalgia Procedures US BREAST LTD RIGHT US BREAST UNI REAL TIME WITH IMAGE LIMITED Gin Neely APRN.CNP [address] [place] [address] [facility] [address] [facility] [place] [address] Referral ID Status Reason Start Date Expiration Date V isits Requested Visits Authorized [id number] Closed Auto-Generate d Referral 11/21/2023 12/20/2024 1 1 Reason Comments Yearly Exam Reason Comments Results Specialty Diagnoses / Procedures Referred By Contac t Referred To Contact US IMAGING Diagnoses Abdominal bloating Procedures US FEMALE PELVIS TRANSVAG US TRANSVAGINAL Gin Neely APRN.CNP [address] [place] [address] [place] [address] Referral ID Status Reason Start Date Expiration Date V isits Requested Visits Authorized [id number] Closed Auto-Generate d Referral 11/21/2023 12/20/2024 1 1 Reason Onset Date Comments Weight Management Weight Management 01/09/2024 Reason Comments [facility] Teams (unrecognized sec tion and content) Thread Grinder Relationship Specialty Start Date End Date Darion Orta MD [address] [place], [place] [address] [address] PCP - General 01/08/04 Thread Grinder Relationship Specialty Start Date End Date Darion Orta MD [address] [place], [place] [address] [address] PCP - General 01/08/04 Team Status: Active Member Role Status Dates Dr. Darion Orta MD Family Provider Active Dr. Andreas Montilla MD Primary Care Provider Active Team Status: Inactive Member Role Status Dates Dr. Andreas Montilla MD Primary Care Provider, Referring Provider Active Dr. Jamie Pickering DO Attending Provider Active Team Status: Inactive Member Role Status Dates Dr. Andreas Montilla MD Primary Care Provider Active Dr. Momo Ambrocio MD Attending Provider Active Team Status: Inactive Member Role Status Dates Dr. Andreas Montilla MD Primary Care Provider Active Dr. Ana Philippe MD Attending Provider, Referring Pr ovid Active Team Status: Inactive Member Role Status Dates Dr. Andreas Montilla MD Primary Care Provider Active Dr. Jim Andrew MD Emergency Provider Active Team Status: Inactive Member Role Status Dates Dr. Andreas Montilla MD Primary Care Provider Active Dr. Jim Andrew MD Attending Provider, Emergency Provider Active Team Status: Inactive Member Role Status Dates Dr. Andreas Montilla MD Primary Care Provider, Attending Provider Active Team Status: Inactive Member Role Status Dates Dr. Andreas Montilla MD Primary Care Provider, Referring Provider Active Dr. Momo Ambrocio MD Attending Provider Active Team Status: Active Member Role Status Dates Dr. Andreas Montilla MD Primary Care Provider Active Jaylin Fonseca Attending Provider Active Team Status: Inactive Member Role Status Dates Dr. Andreas Montilla MD Primary Care Provider, Referring Provider Active Slim Hinojosa PA, PA Attending Provider Active Team Status: Inactive Member Role Status Dates Dr. Andreas Montilla MD Primary Care Provider Active Dr. Momo Ambrocio MD Attending Provider, Referring Pro vider Active Team Status: Active Member Role Status Dates Dr. Andreas Montilla MD Primary Care Provider Active Dr. Momo Ambrocio MD Attending Provider Active Team Status: Inactive Member Role Status Dates Dr. Andreas Montilla MD Primary Care Provider Active Dr. Gabo Car DO Emergency Provider Active Team Status: Inactive Member Role Status Dates Dr. Andreas Montilla MD Primary Care Provider, Referring Provider Active Mee Murphy HEARING STENOGRAPHER, HEARING STENOGRAPHER-C Attending Provider Active Team Status: Active Member Role Status Dates Dr. Andreas Montilla MD Primary Care Provider Active Mee Murphy HEARING STENOGRAPHER, HEARING STENOGRAPHER-C Attending Provider Active Team Status: Active Member Role Status Dates Dr. Andreas Montilla MD Primary Care Provider Active Mee Murphy HEARING STENOGRAPHER, HEARING STENOGRAPHER-C Referring Provider, Other Provi kyara Active Dr. Momo Ambrocio MD Attending Provider Active Team Status: Inactive Member Role Status Dates Dr. Andreas Montilla MD Primary Care Provider Active Dr. Gabo Car DO Attending Provider, Emergency Provider Active Team Status: Inactive Member Role Status Dates Dr. Andreas Montilla MD Primary Care Provider Active Mee Murphy HEARING STENOGRAPHER, HEARING STENOGRAPHER-C Attending Provider Active Team Status: Inactive Member Role Status Dates Dr. Andreas Montilla MD Primary Care Provider Active Mee Murphy HEARING STENOGRAPHER, HEARING STENOGRAPHER-C Attending Provider, Referring P roeloise Active Team Status: Inactive Member Role Status Dates Dr. Andreas Montilla MD Primary Care Provider Active Khanh Smith MD Emergency Provider Active Team Status: Active Member Role Status Dates Dr. Andreas Montilla MD Primary Care Provider Active Dr. Jose Worthington MD Attending Provider Active Team Status: Inactive Member Role Status Dates Dr. Andreas Montilla MD Primary Care Provider Active Khanh Smith MD Attending Provider, Emergency Provid er Active Team Status: Inactive Member Role Status Dates Dr. Andreas Montilla MD Primary Care Provider Active Khanh Smith MD Attending Provider, Referring Provid er Active Thread Grinder Relationship Specialty Start Date End Date Andreas Montilla MD [address] [place] [address] [address] [place] [address] PCP - General Family Medicine 11/05/23 Thread Grinder Relationship Specialty Start Date End Date Andreas Montilla MD [address] [facility] [address] [place] [address] PCP - General Family Medicine 11/05/23 Thread Grinder Relationship Specialty Start Date End Date Andreas Montilla MD [address] [facility] [address] [place] [address] PCP - General Family Medicine 11/05/23 Thread Grinder Relationship Specialty Start Date End Date Andreas Montilla MD [address] [facility] [address] [place] [address] PCP - General Family Medicine 11/05/23 Team Status: Active Member Role Status Dates Dr. Andreas Montilla MD Primary Care Provider Active Dr. Slim Head MD Attending Provider, Referring P rovider Active Team Status: Inactive Member Role Status Dates Dr. Andreas Montilla MD Primary Care Provider, Other Pro vider Active Anna Baum HEARING STENOGRAPHER, HEARING STENOGRAPHER-C Attending Provider, Referring Pro vider Active Team Status: Inactive Member Role Status Dates Dr. Andreas Montilla MD Primary Care Provider Active Dr. Slim Head MD Attending Provider, Referring P rovider Active Team Status: Inactive Member Role Status Dates Dr. Andreas Montilla MD Primary Care Provider Active TALAT Hasnen-C Attending Provider, Referring Pr ovider Active Thread Grinder Relationship Specialty Start Date End Date Andreas Montilla MD [address] [facility] [address] [place] [address] PCP - General Family Medicine 11/05/23 Team Status: Inactive Member Role Status Dates Dr. Andreas Montilla MD Primary Care Provider Active Start: January 12, 2025 End: January 12, 2025 Dr. Andreas Montilla MD Attending Provider Active Start: January 12, 2025 End: January 12, 2025 Dr. Andreas Montilla MD Referring Provider Active Start: January 12, 2025 End: January 12, 2025 Team Status: Active Member Role/Relationship Status Dates Dr. Darion Orta MD Family Provider Active Dr. Andreas Montilla MD Primary Care Provider Active Team Status: Inactive Member Role/Relationship Status Dates Dr. Andreas Montilla MD Primary Care Provider Active Start: January 12, 2025 End: January 12, 2025 Dr. Andreas Montilla MD Attending Provider Active Start: January 12, 2025 End: January 12, 2025 Dr. Andreas Montilla MD Referring Provider Active Start: January 12, 2025 End: January 12, 2025 Team Status: Inactive Member Role/Relationship Status Dates Dr. Andreas Montilla MD Primary Care Provider Active Start: May 07, 2025 End: May 07, 2025 Dr. Andreas Montilla MD Attending Provider Active Start: May 07, 2025 End: May 07, 2025 Dr. Andreas Montilla MD Referring Provider Active Start: May 07, 2025 End: May 07, 2025 Team Status: Inactive Member Role/Relationship Status Dates Dr. Andreas Montilla MD Primary Care Provider Active Start: May 07, 2025 End: May 07, 2025 Dr. Andreas Montilla MD Attending Provider Active Start: May 07, 2025 End: May 07, 2025 Dr. Andreas Montilla MD Referring Provider Active Start: May 07, 2025 End: May 07, 2025 Team Status: Inactive Member Role/Relationship Status Dates Dr. Andreas Montilla MD Primary Care Provider Active Start: June 29, 2025 End: June 29, 2025 Dr. Andreas Montilla MD Attending Provider Active Start: June 29, 2025 End: June 29, 2025 INFORMATION SOURCE (unrecogn ized section and content) DATE CREATED AUTHOR 07/05/2025 [facility] DATE CREATED AUTHOR AUTHOR'S ORGANIZ ATION 07/13/2025 [facility] FOR RECORDS PERTAINING TO PATIENTS WHO ARE OR HAVE BEEN ENROLLED IN A CHEMICAL DEPENDENCY/SUBSTANCEABUSE PROGRAM, SOME INFORMATION MAY BE OMITTED. This clinical summary was aggregated from multiple sources. Caution should be exercised in using it in the provision of clinical care. This summary normalizes information from multiple sources, and as a consequence, information in this document may materially change the coding, format and clinical context of patient data. In addition, data may be omitted in some cases. CLINICAL DECISIONS SHOULD BE BASED ON THE PRIMARY CLINICAL RECORDS. [facility]. provides no warranty or guarantee of the accuracy or completeness of information in this document.
--- NOTE | 2025-10-16 08:51 | MRI_ITS ---
PROCEDURE: LOWER EXT JOINT ONLY (ROUTINE) 10/16/2025 REASON FOR EXAM: PAIN TECHNIQUE: Procedure Code: MRILEJ Modality: MR Procedure: LOWER EXT JOINT ONLY (ROUTINE) Multiplanar and multisequence images were obtained without IV contrast administration. COMPARISON: COMPARISON : None FINDINGS: Very limited sagittal-only T1 and T2 weighted imaging was obtained through the right knee without gadolinium contrast. There is extensive metallic hardware artifact. There is a small right knee joint effusion. Infrapatellar fat pad scarring and arthrofibrosis, also with superior infrapatellar fat pad edema. No periprosthetic bone edema or other evidence to suggest hardware complication. No evidence of fracture. Mild patellar and quadriceps tendinosis without tear. Collateral ligaments not assessed. MRI/Lower Ext Joint Only (Routine) IMPRESSION: Nonspecific superior infrapatellar fat pad edema could indicate fat pad impinge ment. 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 Small joint effusion. Tendinosis. No definite hardware complication. Markedly limited sagittal-only exam. Reading Location: [facility]
== END | disposition home or self-care (01) ==
LOC: MRI 08:46
PROVIDERS: PCP Family Medicine; Referring Provider Specialist; Visit Provider Specialist
DX: T84.82XD Fibrosis due to internal orthopedic prosthetic devices, implants and grafts, subsequent encounter (principal); T84.84XD Pain due to internal orthopedic prosthetic devices, implants and grafts, subsequent encounter; Y79.2 Prosthetic and other implants, materials and accessory orthopedic devices associated with adverse incidents
CPT/HCPCS: 73721